=== PATIENT | female | born 1970 | race Caucasian/White ===

== ENCOUNTER 2016-05-02 12:36 | Emergency (ER) | payer MEDICARE, MEDICAID ==
[2016-05-02 13:12] VITALS: BP 83/58; TEMP 97.1; O2SAT 92
--- NOTE | 2016-05-02 13:12 | ED.PDOC ---
History of Present Illness - General Chief Complaint: Respiratory Problem Stated Complaint: wheezing Time Seen by Provider: 05/02/16 12:43 Source: patient, family Exam Limitations: physical impairment - History of Present Illness Initial Comments: Patient presents with wheezing for three days. She has had a URI. 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 She presents because her home health nurse measured a forehead temperature of 101. The patient also complains of a sore throat. No other complaints. No sick contacts. Timing/Duration: other - 3 days Improving Factors: nothing Worsening Factors: nothing Associated Symptoms: denies symptoms Allergies/Adverse Reactions: Allergies Aspirin Allergy (Verified 05/02/16 13:13) Azithromycin [From Zithromax] Allergy (Verified 05/02/16 14:16) Diazepam [From Valium] Allergy (Verified 05/02/16 13:13) Levofloxacin [From Levaquin] Allergy (Verified 05/02/16 14:16) Meperidine [From Demerol HCl] Allergy (Verified 05/02/16 13:13) Home Medications: Ambulatory Orders Acetaminophen [Tylenol] 1 - 2 mg PO Q6H PRN 05/02/16 Ascorbic Acid [Vitamin C] 1,000 mg PO DAILY 05/02/16 Baclofen 10 mg PO BEDTIME 05/02/16 Cranberry-Vitamin C-Probiotic [Azo Cranberry 250-30 mg] 1 tab PO PRN 05/02/16 Dexlansoprazole [Dexilant] 60 mg PO BEDTIME 05/02/16 Docusate Calcium 240 mg PO BEDTIME 05/02/16 Furosemide [Lasix] 40 mg PO DAILY 05/02/16 Gabapentin [Neurontin] 600 mg PO TID 05/02/16 Levocetirizine Dihydrochloride [Xyzal] 5 mg PO BEDTIME 05/02/16 Levothyroxine Sodium 150 mcg PO DAILY 05/02/16 Melatonin 10 mg PO BEDTIME 05/02/16 Metformin HCl 500 mg PO BID 05/02/16 Polyethylene Glycol 3350 [Miralax] 17 gm PO DAILY 05/02/16 Potassium Citrate (Alkalinizer [Potassium Citrate ER] 10 meq PO DAILY 05/02/16 Promethazine & Phenylephrine [Promethazine Vc] 1 - 2 tsp PO Q4H PRN 05/02/16 QUEtiapine FUMARATE [SEROquel] 100 mg PO BEDTIME 05/02/16 Risedronate Sodium [Atelvia] 35 mg PO WKLY 05/02/16 Simvastatin 40 mg PO BEDTIME 05/02/16 Temazepam [Restoril] 30 mg PO BEDTIME 05/02/16 Venlafaxine HCl [Effexor Xr] 75 mg PO DAILY 05/02/16 Venlafaxine Xr [Effexor XR] 150 mg PO BEDTIME 05/02/16 diphenhydrAMINE HCL [Benadryl] 50 mg PO BID 05/02/16 medroxyPROGESTERone ACET [Depo-Provera] 150 mg IM .[id number] 05/02/16 Review of Systems - Review of Systems Constitutional: States: see HPI EENTM: States: no symptoms reported Respiratory: States: see HPI Cardiology: States: no symptoms reported Gastrointestinal/Abdominal: States: no symptoms reported Genitourinary: States: no symptoms reported Musculoskeletal: States: see HPI Skin: States: no symptoms reported Neurological: States: no symptoms reported Endocrine: States: no symptoms reported Hematologic/Lymphatic: States: no symptoms reported Family Medical History - Family History Father Family History: Unknown Living Status: Still Living Physical Exam - Physical Exam General Appearance: Alert Ears, Nose, Throat: normal ENT inspection Neck: non-tender, full range of motion, supple Respiratory: other - Expiratory rales and wheezing in the Right middle lobe Cardiovascular/Chest: regular rate, rhythm Gastrointestinal/Abdominal: normal bowel sounds, non tender, soft Progress - Progress Progress: 05/02/16 15:31 CXR showed no infiltrate wbc wnl rapid strep positive patient given Bicillin LA 1.2 million units IM x one Departure - Departure Clinical Impression: Streptococcal pharyngitis Disposition: Discharge to Home or Self Care Condition: Good Departure Forms: ED Discharge - Pt. Copy, Patient Portal Self Enrollment Diet: resume usual diet Activity: increase activity as tolerated Home Medications: Ambulatory Orders Acetaminophen [Tylenol] 1 - 2 mg PO Q6H PRN 05/02/16 Ascorbic Acid [Vitamin C] 1,000 mg PO DAILY 05/02/16 Baclofen 10 mg PO BEDTIME 05/02/16 Cranberry-Vitamin C-Probiotic [Azo Cranberry 250-30 mg] 1 tab PO PRN 05/02/16 Dexlansoprazole [Dexilant] 60 mg PO BEDTIME 05/02/16 Docusate Calcium 240 mg PO BEDTIME 05/02/16 Furosemide [Lasix] 40 mg PO DAILY 05/02/16 Gabapentin [Neurontin] 600 mg PO TID 05/02/16 Levocetirizine Dihydrochloride [Xyzal] 5 mg PO BEDTIME 05/02/16 Levothyroxine Sodium 150 mcg PO DAILY 05/02/16 Melatonin 10 mg PO BEDTIME 05/02/16 Metformin HCl 500 mg PO BID 05/02/16 Polyethylene Glycol 3350 [Miralax] 17 gm PO DAILY 05/02/16 Potassium Citrate (Alkalinizer [Potassium Citrate ER] 10 meq PO DAILY 05/02/16 Promethazine & Phenylephrine [Promethazine Vc] 1 - 2 tsp PO Q4H PRN 05/02/16 QUEtiapine FUMARATE [SEROquel] 100 mg PO BEDTIME 05/02/16 Risedronate Sodium [Atelvia] 35 mg PO WKLY 05/02/16 Simvastatin 40 mg PO BEDTIME 05/02/16 Temazepam [Restoril] 30 mg PO BEDTIME 05/02/16 Venlafaxine HCl [Effexor Xr] 75 mg PO DAILY 05/02/16 Venlafaxine Xr [Effexor XR] 150 mg PO BEDTIME 05/02/16 diphenhydrAMINE HCL [Benadryl] 50 mg PO BID 05/02/16 medroxyPROGESTERone ACET [Depo-Provera] 150 mg IM .[id number] 05/02/16 Additional Instructions: Increase oral fluids. Tylenol for pain or fever control. See your primary care provider if symptoms persist more than 7 days or for worsening of symptoms.
--- NOTE | 2016-05-02 13:52 | RAD ---
EXAM DESCRIPTION: XR CHEST 1 VIEW CLINICAL HISTORY: 45 y/o ,F, wheezing, Right middle lobe COMPARISON: None. IMPRESSION: Minimal linear subsegmental atelectasis in both lung bases. Some of this may be scar as well. No lobar consolidation. Stentor right or on the right abdomen. No large pleural effusion or pneumothorax. Electronically signed by: Dandy Frazier MD 05/02/2016 13:50
[2016-05-02] MEDS ORDERED: POTASSIUM CHLORIDE 20 MEQ TAB PO ONE (13:59)
[2016-05-02] MEDS ORDERED: PENICILLIN BENZATHINE 1.2 MU 1.2 MU/2 ML SYG IM ONE (14:57)
== END 2016-05-02 15:39 | disposition home or self-care (01) ==
LOC: ER 12:36
DX: J02.0 Streptococcal pharyngitis (principal); Z88.6 Allergy status to analgesic agent; Z88.8 Allergy status to other drugs, medicaments and biological substances; Z88.3 Allergy status to other anti-infective agents; Z79.899 Other long term (current) drug therapy
CPT/HCPCS: 36415; 71010; 80053; 85025; 87804; 87880; J0561

== ENCOUNTER → 2016-06-04 | Outpatient (CLI) | payer MEDICARE, OTHER | END | disposition home or self-care (01) | LOC: BFHH 14:59 | PROVIDERS: ATTEND Family Medicine | DX: E11.9 Type 2 diabetes mellitus without complications (principal); G37.3 Acute transverse myelitis in demyelinating disease of central nervous system; E78.5 Hyperlipidemia, unspecified; N31.9 Neuromuscular dysfunction of bladder, unspecified ==

== ENCOUNTER 2016-08-06 17:11 | Emergency (ER) | payer MEDICARE, MEDICAID ==
--- NOTE | 2016-08-06 17:58 | RAD ---
EXAM DESCRIPTION: Chest,1 View CLINICAL HISTORY: chest congestion and cough COMPARISON: 02 May 2016 TECHNIQUE: AP portable chest FINDINGS: Scarring is observed in both lungs unchanged from the prior exam. Heart is within range of normal. IMPRESSION: Portable scarring is observed bilaterally. I see no acute cardiac pulmonary pathology. Electronically signed by: Juan Ayala MD 08/06/2016 5:56 PM CDT
--- NOTE | 2016-08-06 17:58 | ED.PDOC ---
History of Present Illness - General Chief Complaint: Respiratory Problem Stated Complaint: cough and chest congestion Time Seen by Provider: 08/06/16 17:51 Source: patient, RN notes reviewed, Vital Signs reviewed Exam Limitations: no limitations - History of Present Illness Initial Comments: Ms. Radha Norton 46 y/o female with history of transverse myelitis ,wheel chair bound stated that she had productive cough and nasal congestion for the last 2 weeks.Has nebulizer at home Timing/Duration: other - 14 days Severity: moderate Possible Cause: occasional episodes Improving Factors: nothing Worsening Factors: nothing Associated Symptoms: denies symptoms Respiratory Risk Factors: other - wheelchair bound Allergies/Adverse Reactions: Allergies Aspirin Allergy (Verified 08/06/16 17:32) Azithromycin [From Zithromax] Allergy (Verified 08/06/16 17:32) Diazepam [From Valium] Allergy (Verified 08/06/16 17:32) Levofloxacin [From Levaquin] Allergy (Verified 08/06/16 17:32) Meperidine [From Demerol HCl] Allergy (Verified 08/06/16 17:32) Home Medications: Ambulatory Orders Acetaminophen [Tylenol] 1 - 2 mg PO Q6H PRN 05/02/16 Ascorbic Acid [Vitamin C] 1,000 mg PO DAILY 05/02/16 Baclofen 10 mg PO BEDTIME 05/02/16 Cranberry-Vitamin C-Probiotic [Azo Cranberry 250-30 mg] 1 tab PO PRN 05/02/16 Dexlansoprazole [Dexilant] 60 mg PO BEDTIME 05/02/16 Docusate Calcium 240 mg PO BEDTIME 05/02/16 Furosemide [Lasix] 40 mg PO DAILY 05/02/16 Gabapentin [Neurontin] 600 mg PO TID 05/02/16 Levocetirizine Dihydrochloride [Xyzal] 5 mg PO BEDTIME 05/02/16 Levothyroxine Sodium 150 mcg PO DAILY 05/02/16 Melatonin 10 mg PO BEDTIME 05/02/16 Metformin HCl 500 mg PO BID 05/02/16 Polyethylene Glycol 3350 [Miralax] 17 gm PO DAILY 05/02/16 Potassium Citrate (Alkalinizer [Potassium Citrate ER] 10 meq PO DAILY 05/02/16 Promethazine & Phenylephrine [Promethazine Vc] 1 - 2 tsp PO Q4H PRN 05/02/16 QUEtiapine FUMARATE [SEROquel] 100 mg PO BEDTIME 05/02/16 Risedronate Sodium [Atelvia] 35 mg PO WKLY 05/02/16 Simvastatin 40 mg PO BEDTIME 05/02/16 Temazepam [Restoril] 30 mg PO BEDTIME 05/02/16 Venlafaxine HCl [Effexor Xr] 75 mg PO DAILY 05/02/16 Venlafaxine Xr [Effexor XR] 150 mg PO BEDTIME 05/02/16 diphenhydrAMINE HCL [Benadryl] 50 mg PO BID 05/02/16 medroxyPROGESTERone ACET [Depo-Provera] 150 mg IM .[id number] 05/02/16 Chlorpheniramine Maleate [Chlor-Trimeton Allergy] 12 mg PO BEDTIME #30 tab 08/06 Ipratropium Byfield (Nasal) [Ipratropium Byfield] 0.03 % NA TID PRN #1 spr 08/06 Review of Systems - Review of Systems Constitutional: States: no symptoms reported EENTM: States: see HPI, nose congestion Respiratory: States: see HPI, cough Cardiology: States: no symptoms reported Gastrointestinal/Abdominal: States: no symptoms reported, other - colostomy Genitourinary: States: other - chronic indwelling catheter Musculoskeletal: States: no symptoms reported Skin: States: no symptoms reported Neurological: States: pre-existing deficit - transverse myelitis,cva residual Past Medical History (General) - Patient Medical History Hx Stroke: Yes Hx Diabetes: Yes Hx Other PMH: Yes - Tranverse myelitis Hx Other - free text: ocular herpes zoster left Surgical History: appendectomy, other - hysterectomy ,colostomy Other Surgeries:: left eye enucleation - Vaccination History Hx Tetanus, Diphtheria Vaccination: Yes Hx Influenza Vaccination: Yes Hx Pneumococcal Vaccination: Yes Immunizations Up to Date: Yes - Social History Hx Tobacco Use: Yes Hx Alcohol Use: No Hx Substance Use: No Hx Depression: No - Activities of Daily Living Grooming Ability: Total Assistance Eating (Feeding) Ability: Total Assistance Toileting Ability: Total Assistance Family Medical History - Family History Father Family History: Unknown Living Status: Still Living Physical Exam - Physical Exam General Appearance: Alert, Comfortable, No apparent distress Eye Exam: left other - enucleation ENT Exam: normal ENT inspection, hearing grossly normal, TMs normal, pharynx normal, nasal congestion Neck: supple, normal inspection Respiratory: chest non-tender, no respiratory distress, other - coarse breath sounds Cardiovascular/Chest: normal peripheral pulses, regular rate, rhythm, no murmur Gastrointestinal/Abdominal: soft, other - colostomy patent Extremity: non-tender, no calf tenderness, pedal edema Neurologic: sensory deficit, other - residual motor deficit chronic Lymphatic: no adenopathy Progress - Results/Orders Results/Orders: Laboratory Results WBC 7.6 K/mm3 (4.8-10.8) 08/06/16 18:10 RBC 4.33 M/mm3 (4.20-5.40) 08/06/16 18:10 Hgb 12.1 gm/dL (12.0-16.0) 08/06/16 18:10 Hct 37.4 % (36.0-47.0) 08/06/16 18:10 MCV 86.4 fl (81.0-99.0) 08/06/16 18:10 MCH 27.9 pg (27.0-31.0) 08/06/16 18:10 MCHC 32.3 g/dL (33.0-37.0) L 08/06/16 18:10 RDW 15.7 % (11.5-14.5) H 08/06/16 18:10 Plt Count 240 K/mm3 (130-400) 08/06/16 18:10 MPV 9.2 fl (7.40-10.4) 08/06/16 18:10 Absolute Neuts (auto) 5.50 K/uL (1.8-6.8) 08/06/16 18:10 Absolute Lymphs (auto) 1.40 K/uL (1.0-3.4) 08/06/16 18:10 Absolute Monos (auto) 0.50 K/uL (0.2-0.8) 08/06/16 18:10 Absolute Eos (auto) 0.20 K/uL (0.0-0.4) 08/06/16 18:10 Absolute Basos (auto) 0.10 K/uL (0.0-0.1) 08/06/16 18:10 Neutrophils % 72.8 % (42.0-78.0) 08/06/16 18:10 Lymphocytes % 18.1 % (20.0-50.0) L 08/06/16 18:10 Monocytes % 6.0 % (2.0-9.0) 08/06/16 18:10 Eosinophils % 2.0 % (1.0-5.0) 08/06/16 18:10 Basophils % 1.1 % (0.0-2.0) 08/06/16 18:10 Sodium 140 mmol/L (135-145) 08/06/16 18:10 Potassium 2.9 mmol/L (3.6-5.0) L 08/06/16 18:10 Chloride 104 mmol/L (101-111) 08/06/16 18:10 Carbon Dioxide 27 mmol/L (21-31) 08/06/16 18:10 Anion Gap 11.9 (12-18) L 08/06/16 18:10 BUN 12 mg/dL (7-18) 08/06/16 18:10 Creatinine < 0.40 mg/dL (0.6-1.3) L 08/06/16 18:10 BUN/Creatinine Ratio 30.0 (10-20) H 08/06/16 18:10 Random Glucose 175 mg/dL (70-105) H 08/06/16 18:10 Serum Osmolality 283.4 mOsm/L (275-295) 08/06/16 18:10 Calcium 8.8 mg/dL (8.4-10.2) 08/06/16 18:10 Total Bilirubin 0.4 mg/dL (0.2-1.0) 08/06/16 18:10 AST 25 IU/L (10-42) 08/06/16 18:10 ALT 24 IU/L (10-60) 08/06/16 18:10 Alkaline Phosphatase 104 IU/L (42-121) 08/06/16 18:10 Serum Total Protein 7.3 gm/dL (6.4-8.2) 08/06/16 18:10 Albumin 4.0 g/dl (3.2-5.5) 08/06/16 18:10 Globulin 3.3 gm/dL (2.3-3.5) 08/06/16 18:10 Albumin/Globulin Ratio 1.2 (1.1-1.9) 08/06/16 18:10 - EKG/XRAY/CT XRAY: chest - no acute abnormality noted Departure - Departure Clinical Impression: Acute bronchospasm, Bronchitis with bronchospasm Time of Disposition: 19:00 Disposition: Discharge to Home or Self Care Condition: Fair Departure Forms: ED Discharge - Pt. Copy, Patient Portal Self Enrollment Instructions: Chronic Bronchitis Referrals: Shane Lopez MD [Primary Care Provider] - 1-2 Weeks Prescriptions: Chlorpheniramine Maleate [Chlor-Trimeton Allergy] 12 mg PO BEDTIME #30 tab Ipratropium [place]field (Nasal) [Ipratropium [place]] 0.03 % NA TID PRN #1 spr PRN Reason: Nasal Congestion Home Medications: Ambulatory Orders Acetaminophen [Tylenol] 1 - 2 mg PO Q6H PRN 05/02/16 Ascorbic Acid [Vitamin C] 1,000 mg PO DAILY 05/02/16 Baclofen 10 mg PO BEDTIME 05/02/16 Cranberry-Vitamin C-Probiotic [Azo Cranberry 250-30 mg] 1 tab PO PRN 05/02/16 Dexlansoprazole [Dexilant] 60 mg PO BEDTIME 05/02/16 Docusate Calcium 240 mg PO BEDTIME 05/02/16 Furosemide [Lasix] 40 mg PO DAILY 05/02/16 Gabapentin [Neurontin] 600 mg PO TID 05/02/16 Levocetirizine Dihydrochloride [Xyzal] 5 mg PO BEDTIME 05/02/16 Levothyroxine Sodium 150 mcg PO DAILY 05/02/16 Melatonin 10 mg PO BEDTIME 05/02/16 Metformin HCl 500 mg PO BID 05/02/16 Polyethylene Glycol 3350 [Miralax] 17 gm PO DAILY 05/02/16 Potassium Citrate (Alkalinizer [Potassium Citrate ER] 10 meq PO DAILY 05/02/16 Promethazine & Phenylephrine [Promethazine Vc] 1 - 2 tsp PO Q4H PRN 05/02/16 QUEtiapine FUMARATE [SEROquel] 100 mg PO BEDTIME 05/02/16 Risedronate Sodium [Atelvia] 35 mg PO WKLY 05/02/16 Simvastatin 40 mg PO BEDTIME 05/02/16 Temazepam [Restoril] 30 mg PO BEDTIME 05/02/16 Venlafaxine HCl [Effexor Xr] 75 mg PO DAILY 05/02/16 Venlafaxine Xr [Effexor XR] 150 mg PO BEDTIME 05/02/16 diphenhydrAMINE HCL [Benadryl] 50 mg PO BID 05/02/16 medroxyPROGESTERone ACET [Depo-Provera] 150 mg IM .[id number] 05/02/16 Chlorpheniramine Maleate [Chlor-Trimeton Allergy] 12 mg PO BEDTIME #30 tab 08/06 Ipratropium [place] (Nasal) [Ipratropium Byfield] 0.03 % NA TID PRN #1 spr 08/06 Additional Instructions: Continue with home hand held nebulizer and rest of home medications;Return to emergency room as needed
[2016-08-06] MEDS ORDERED: IPRATROPIUM/ALBUTEROL 3 ML VIAL NEB ONE (18:04)
[2016-08-06 19:20] VITALS: BP 96/65; TEMP 97.8
[2016-08-06 19:21] VITALS: O2SAT 94
== END 2016-08-06 19:21 | disposition home or self-care (01) ==
LOC: ER 17:11
DX: J20.9 Acute bronchitis, unspecified (principal); G37.3 Acute transverse myelitis in demyelinating disease of central nervous system; Z99.3 Dependence on wheelchair; E11.9 Type 2 diabetes mellitus without complications; Z87.891 Personal history of nicotine dependence; Z79.899 Other long term (current) drug therapy; I69.90 Unspecified sequelae of unspecified cerebrovascular disease; Z88.6 Allergy status to analgesic agent; Z88.3 Allergy status to other anti-infective agents; Z88.8 Allergy status to other drugs, medicaments and biological substances
CPT/HCPCS: 36415; 71010; 80053; 85025; 94640; J7620

== ENCOUNTER → 2016-09-10 | Outpatient (CLI) | payer MEDICARE, OTHER | END | disposition home or self-care (01) | LOC: BFHH 11:22 | PROVIDERS: ATTEND Family Medicine | DX: E87.6 Hypokalemia (principal) ==

== ENCOUNTER → 2016-10-15 | Outpatient (CLI) | payer MEDICARE, OTHER | END | disposition home or self-care (01) | LOC: BFHH 13:40 | PROVIDERS: ATTEND Family Medicine | DX: R60.0 Localized edema (principal); G37.3 Acute transverse myelitis in demyelinating disease of central nervous system; E11.9 Type 2 diabetes mellitus without complications ==

== ENCOUNTER → 2016-11-06 | Outpatient (CLI) | payer MEDICARE, OTHER | LOC: BFHH 13:07 | PROVIDERS: ATTEND Family Medicine | DX: N39.0 Urinary tract infection, site not specified (principal) ==

== ENCOUNTER 2016-11-09 14:31 | Emergency (ER) | payer MEDICARE, OTHER ==
--- NOTE | 2016-11-09 14:41 | ED.PDOC ---
History of Present Illness - General Chief Complaint: Neuro Symptoms/Deficits Stated Complaint: slurred speech/headache Time Seen by Provider: 11/09/16 14:33 Source: EMS notes reviewed, family - dad Exam Limitations: no limitations - History of Present Illness Initial Comments: Radha Norton 46 y/o female brought by ems with slowed and slurred speech starting last night;dad stated initially had headache was given Tramadol 100mg and 2 tylenol tabs then a few hours later speech got slurred and unable to swallow which according to dad still persist. Diagnosed with tranverse myelitis after she had spinal meningitis in 2001 in [place] and was transferred to [facility] in [place] where multiple neurologic work up and procedure done.Patient had been wheelchair bound needing total assistance due to quadriplegia.Had also cva after a procedure done in the past. Timing/Duration: other - 16 hours Improving Factors: nothing Worsening Factors: nothing Associated Symptoms: other - difficulty swallowing Allergies/Adverse Reactions: Allergies Aspirin Allergy (Verified 08/06/16 17:32) Azithromycin [From Zithromax] Allergy (Verified 08/06/16 17:32) Diazepam [From Valium] Allergy (Verified 08/06/16 17:32) Levofloxacin [From Levaquin] Allergy (Verified 08/06/16 17:32) Meperidine [From Demerol HCl] Allergy (Verified 08/06/16 17:32) Home Medications: Ambulatory Orders Acetaminophen [Tylenol] 1 - 2 mg PO Q6H PRN 05/02/16 Ascorbic Acid [Vitamin C] 1,000 mg PO DAILY 05/02/16 Baclofen 10 mg PO BEDTIME 05/02/16 Cranberry-Vitamin C-Probiotic [Azo Cranberry 250-30 mg] 1 tab PO PRN 05/02/16 Dexlansoprazole [Dexilant] 60 mg PO BEDTIME 05/02/16 Docusate Calcium 240 mg PO BEDTIME 05/02/16 Furosemide [Lasix] 40 mg PO DAILY 05/02/16 Gabapentin [Neurontin] 600 mg PO TID 05/02/16 Levocetirizine Dihydrochloride [Xyzal] 5 mg PO BEDTIME 05/02/16 Levothyroxine Sodium 150 mcg PO DAILY 05/02/16 Melatonin 10 mg PO BEDTIME 05/02/16 Metformin HCl 500 mg PO BID 05/02/16 Polyethylene Glycol 3350 [Miralax] 17 gm PO DAILY 05/02/16 Potassium Citrate (Alkalinizer [Potassium Citrate ER] 10 meq PO DAILY 05/02/16 Promethazine & Phenylephrine [Promethazine Vc] 1 - 2 tsp PO Q4H PRN 05/02/16 QUEtiapine FUMARATE [SEROquel] 100 mg PO BEDTIME 05/02/16 Risedronate Sodium [Atelvia] 35 mg PO WKLY 05/02/16 Simvastatin 40 mg PO BEDTIME 05/02/16 Temazepam [Restoril] 30 mg PO BEDTIME 05/02/16 Venlafaxine HCl [Effexor Xr] 75 mg PO DAILY 05/02/16 Venlafaxine Xr [Effexor XR] 150 mg PO BEDTIME 05/02/16 diphenhydrAMINE HCL [Benadryl] 50 mg PO BID 05/02/16 medroxyPROGESTERone INJ [Depo-Provera] 150 mg IM .[id number] 05/02/16 Chlorpheniramine Maleate [Chlor-Trimeton Allergy] 12 mg PO BEDTIME #30 tab 08/06 Ipratropium Dilworth (Nasal) [Ipratropium Dilworth] 0.03 % NA TID PRN #1 spr 08/06 Review of Systems - Review of Systems Constitutional: States: no symptoms reported EENTM: States: other - difficulty swallowing Respiratory: States: no symptoms reported Cardiology: States: no symptoms reported Gastrointestinal/Abdominal: States: no symptoms reported Genitourinary: States: no symptoms reported Musculoskeletal: States: no symptoms reported Skin: States: no symptoms reported Neurological: States: see HPI Endocrine: States: no symptoms reported Past Medical History (General) - Patient Medical History Hx Stroke: Yes Hx Diabetes: Yes Hx Other PMH: Yes - transverse myelitis ,spinal meningitis Surgical History: appendectomy - hysterectomy colostomy, other - left eye enucleation - Vaccination History Hx Tetanus, Diphtheria Vaccination: Yes Hx Influenza Vaccination: Yes Hx Pneumococcal Vaccination: Yes - Social History Hx Tobacco Use: Yes Hx Alcohol Use: No Hx Substance Use: No Hx Depression: No - Activities of Daily Living Patient Lives Alone: No - family Grooming Ability: Total Assistance Eating (Feeding) Ability: Total Assistance Toileting Ability: Total Assistance Family Medical History - Family History Father Family History: Unknown Living Status: Still Living Physical Exam - Physical Exam General Appearance: Other - somnolent Eye Exam: right normal, left other - eye enucleation ENT Exam: normal ENT inspection, hearing grossly normal, TMs normal, pharynx normal Neck: non-tender, supple, normal inspection Respiratory: chest non-tender, normal breath sounds, other - coarse breath sounds Cardiovascular/Chest: normal peripheral pulses, regular rate, rhythm, no JVD, no murmur, tachycardia Peripheral Pulses: radial,right: 1+, radial,left: 1+ Gastrointestinal/Abdominal: non tender, soft, no organomegaly Back Exam: normal inspection, no CVA tenderness Extremities Exam: non-tender, edema - +1 both legs Mental Status: other - somnolent manager transportation planning Exam: normal hearing, abnormal gag reflex Motor/Sensory: sensory deficit - residual Skin Exam: normal color, warm/dry, other - no pressure sore Progress - Progress Progress: 11/09/16 16:10 Vital Signs - 8 hr 11/09/16 11/09/16 11/09/16 14:31 14:45 15:02 Temperature 98.3 F 98.9 F 98.9 F Pulse Rate 104 H 100 H 100 H Pulse Rate [ 104 H 104 H 104 H Apical] Respiratory 16 16 Rate Blood Pressure 105/58 82/47 119/79 [Left Arm] O2 Sat by Pulse 94 L 96 Oximetry - Results/Orders Results/Orders: 11/09/16 14:37 IV Care:Saline Lock per Protoc QSHIFT URINE DRUG SCREEN, 7 ASSAY Stat URINALYSIS Stat 11/09/16 14:45 EKG STAT 11/09/16 15:31 Magnesium Sulfate Premix 2Gm 2 gm Premix Bag 1 bag IVPB ONCE 11/09/16 15:32 THYROID STIMULATING HORMONE Stat 11/09/16 15:47 PTH,INTACT W/O CALCIIUM Stat 11/09/16 16:08 Piperacillin/Tazobactam [Zosyn] 3.375 gm Sodium Chloride 0.9% 100Ml [NS (NACL 0.9%) 100ml] 100 ml IVPB ONCE Laboratory Results - last 24 hr 11/09/16 11/09/16 14:52 15:40 WBC 9.4 RBC 3.81 L Hgb 10.5 L Hct 32.1 L MCV 84.2 MCH 27.5 MCHC 32.7 L RDW 17.1 H Plt Count 85 L MPV 10.1 Absolute Neuts (auto) 8.60 H Absolute Lymphs (auto) 0.40 L Absolute Monos (auto) 0.40 Absolute Eos (auto) 0.00 Absolute Basos (auto) 0.00 Neutrophils % 91.1 H Lymphocytes % 4.0 L Monocytes % 4.1 Eosinophils % 0.5 L Basophils % 0.3 PT 14.8 H INR 1.310 PTT (SP) 33.7 Sodium 132 L Potassium 4.4 Chloride 93 L Carbon Dioxide 21 Anion Gap 22.4 H BUN 45 H Creatinine 1.92 H BUN/Creatinine Ratio 23.4 H Random Glucose 75 Serum Osmolality 274.8 L Lactic Acid 4.3 H* Calcium 8.0 L Magnesium 1.2 L Total Bilirubin 0.7 Direct Bilirubin 0.3 H Indirect Bilirubin 0.4 AST 52 H ALT 52 Alkaline Phosphatase 91 Creatine Kinase 306 H* CK-MB (CK-2) 16.3 H* CK-MB (CK-2) % 5.33 H Troponin I 0.18 H* Serum Total Protein 6.4 Albumin 3.2 - EKG/XRAY/CT EKG: Sinus, Tachy Comments: heart rate-102 IRBB XRAY: chest - scarring/atelectasis-radiologist CT Ordered: Yes - no infarct or hemorrhage Departure - Departure Clinical Impression: Altered awareness, transient, Sepsis due to Enterobacter species, Elevated troponin I level, Chronic indwelling Agustin catheter, Transverse myelitis, Quadriplegia, Elevated lactic acid level, Renal insufficiency Urinary tract infection Qualifiers: Urinary tract infection type: catheter-associated UTI Encounter type: initial encounter Qualified Code(s): T83.51XA - Infection and inflammatory reaction due to indwelling urinary catheter, initial encounter Time of Disposition: 18:35 Disposition: Transfer to Hospital Condition: Fair Departure Forms: Patient Portal Self Enrollment Referrals: Shane Lopez MD [Primary Care Provider] - 1-2 Weeks Home Medications: Ambulatory Orders Acetaminophen [Tylenol] 1 - 2 mg PO Q6H PRN 05/02/16 Ascorbic Acid [Vitamin C] 1,000 mg PO DAILY 05/02/16 Baclofen 10 mg PO BEDTIME 05/02/16 Cranberry-Vitamin C-Probiotic [Azo Cranberry 250-30 mg] 1 tab PO PRN 05/02/16 Dexlansoprazole [Dexilant] 60 mg PO BEDTIME 05/02/16 Docusate Calcium 240 mg PO BEDTIME 05/02/16 Furosemide [Lasix] 40 mg PO DAILY 05/02/16 Gabapentin [Neurontin] 600 mg PO TID 05/02/16 Levocetirizine Dihydrochloride [Xyzal] 5 mg PO BEDTIME 05/02/16 Levothyroxine Sodium 150 mcg PO DAILY 05/02/16 Melatonin 10 mg PO BEDTIME 05/02/16 Metformin HCl 500 mg PO BID 05/02/16 Polyethylene Glycol 3350 [Miralax] 17 gm PO DAILY 05/02/16 Potassium Citrate (Alkalinizer [Potassium Citrate ER] 10 meq PO DAILY 05/02/16 Promethazine & Phenylephrine [Promethazine Vc] 1 - 2 tsp PO Q4H PRN 05/02/16 QUEtiapine FUMARATE [SEROquel] 100 mg PO BEDTIME 05/02/16 Risedronate Sodium [Atelvia] 35 mg PO WKLY 05/02/16 Simvastatin 40 mg PO BEDTIME 05/02/16 Temazepam [Restoril] 30 mg PO BEDTIME 05/02/16 Venlafaxine HCl [Effexor Xr] 75 mg PO DAILY 05/02/16 Venlafaxine Xr [Effexor XR] 150 mg PO BEDTIME 05/02/16 diphenhydrAMINE HCL [Benadryl] 50 mg PO BID 05/02/16 medroxyPROGESTERone INJ [Depo-Provera] 150 mg IM .[id number] 05/02/16 Chlorpheniramine Maleate [Chlor-Trimeton Allergy] 12 mg PO BEDTIME #30 tab 08/06 Ipratropium Dilworth (Nasal) [Ipratropium Dilworth] 0.03 % NA TID PRN #1 spr 08/06 Transfer to Outside Facility - Transfer Information Accepting Facility: [facility] Reason for Transfer: specialized care not available
[2016-11-09] MEDS ORDERED: SODIUM CHLORIDE 0.9% 1000ML 1,000 ML IVS ONE ×2 (14:52→17:19)
--- NOTE | 2016-11-09 14:59 | CT ---
EXAM DESCRIPTION: Head CLINICAL HISTORY: 46 years, Female, slurred speech TECHNIQUE: 5mm slice thickness axial images through the brain were performed in bone and soft tissue windows in the absence of intravenous contrast. This exam was performed according to our departmental dose-optimization program which includes use of Automated Exposure Control, adjustment of the mA and/or kV according to patient size and/or use of iterative reconstruction technique. COMPARISON: CT scan of the neck dated 03/11/2016. FINDINGS: No involutional changes are present. There is a paucity of visible CSF. The lateral ventricles are small although the temporal horn of the LEFT lateral ventricle is mildly dilated. The basal cisterns are patent and dempsey-white differentiation is maintained. No intracranial hemorrhage is detected. Findings are similar to the prior study dated 03/11/2016 on the this exam only includes the mid to caudal portion of the brain. No dense MCA sign. Intact insular cortex. There has been a previous RIGHT frontal and temporal craniotomy. Additional RIGHT temporal surgery at the external auditory canal extending to the middle ear is noted. The visualized paranasal sinuses and mastoid air cells are patent. No fracture is present. Stable appearance of the LEFT globe. IMPRESSION: No acute cortical infarct is detected by noncontrast CT at this time. No intracranial hemorrhage. Consider MR imaging to evaluate for early changes brain ischemia/infarct. Limited CSF is seen within the supratentorial region but this is likely a chronic finding as dempsey-white differentiation is maintained in the caudal portion of the brain has a similar appearance to the prior study. Postoperative changes. Electronically signed by: Parisa Elaine MD 11/09/2016 2:58 PM CDT Workstation: [id number]
[2016-11-09] MEDS ORDERED: MAGNESIUM SULFATE PREMIX 2GM 2 GM in PREMIX BAG 1 BAG IVPB ONE (15:31)
--- NOTE | 2016-11-09 15:32 | RAD ---
EXAM DESCRIPTION: Chest,1 View CLINICAL HISTORY: 46 years, Female, weak COMPARISON: Chest x-ray dated 08/06/2016. FINDINGS: An upright portable frontal chest radiograph was performed. Lung volumes are low and there is some retrocardiac linear airspace opacity and scarring of the RIGHT lung base. The costophrenic sulci are sharp. The cardiac silhouette, hilar regions, trachea, soft tissues and bony structures are unremarkable. Lung volumes have decreased since the prior study and linear retrocardiac airspace opacity has increased. IMPRESSION: Low lung volumes with suspected atelectasis and scarring. Electronically signed by: Parisa Elaine MD 11/09/2016 3:31 PM CDT
[2016-11-09] MEDS ORDERED: MAGNESIUM SULFATE PREMIX 2GM 50 ML IVPB ONE (15:42)
[2016-11-09] MEDS ORDERED: PIPERACILLIN/TAZOBACTAM 3.375 GM in SODIUM CHLORIDE 0.9% 100ML 100 ML IVPB ONE (16:08)
[2016-11-09] MEDS ORDERED: SODIUM CHLORIDE 0.9% 100ML 100 ML IVPB ONE (16:15)
[2016-11-09] MEDS ORDERED: PIPERACILLIN/TAZOBACTAM 3.375 GM VIAL IVPB ONE (16:15)
[2016-11-09] MEDS ORDERED: MEROPENEM 1 GM in SODIUM CHL 0.9% 50ML MIN-BAG+ 50 ML IVPB ONE (16:46)
[2016-11-09] MEDS ORDERED: SODIUM CHL 0.9% 50ML MIN-BAG+ 50 ML IVPB ONE (16:49)
[2016-11-09] MEDS ORDERED: MEROPENEM 1 GM VIAL IVPB ONE (16:49)
[2016-11-09] MEDS ORDERED: NOREPINEPHRINE BITARTRATE 4 MG in DEXTROSE 5% 250ML 250 ML IVPB SCH (17:30)
[2016-11-09] MEDS ORDERED: NOREPINEPHRINE BITARTRATE 4 MG/4 ML VIAL IVPB ONE (17:42)
[2016-11-09] MEDS ORDERED: DEXTROSE 5% 250ML 250 ML ONE (17:48)
[2016-11-09 19:21] VITALS: O2SAT 92
[2016-11-09 19:25] VITALS: TEMP 99.5
[2016-11-09 19:47] VITALS: BP 122/57
== END 2016-11-09 20:03 | disposition short-term general hospital (02) ==
LOC: ER 14:31
DX: R47.81 Slurred speech (principal); T83.511A Infection and inflammatory reaction due to indwelling urethral catheter, initial encounter; N39.0 Urinary tract infection, site not specified; A41.89 Other specified sepsis; R40.4 Transient alteration of awareness; G82.50 Quadriplegia, unspecified; G37.3 Acute transverse myelitis in demyelinating disease of central nervous system; E11.9 Type 2 diabetes mellitus without complications; N28.9 Disorder of kidney and ureter, unspecified; Z88.6 Allergy status to analgesic agent; Z88.8 Allergy status to other drugs, medicaments and biological substances; Z93.3 Colostomy status; Z79.899 Other long term (current) drug therapy; Z87.891 Personal history of nicotine dependence; Z86.61 Personal history of infections of the central nervous system; Z86.73 Personal history of transient ischemic attack (TIA), and cerebral infarction without residual deficits
CPT/HCPCS: 36415; 70450; 71010; 80048; 80076; 80307; 81001; 82550; 82553; 83605; 84443; 84484; 85025; 85610; 85730; 87040; 87086; 87088; 87186; 93005; J2185; J3475; J7030; J7050; J7060

== ENCOUNTER → 2016-11-24 | Outpatient (CLI) | payer MEDICARE, OTHER | END | disposition home or self-care (01) | LOC: BFHH 15:44 | PROVIDERS: ATTEND Family Medicine | DX: R65.21 Severe sepsis with septic shock (principal); N39.0 Urinary tract infection, site not specified ==

== ENCOUNTER → 2016-11-27 | Outpatient (CLI) | payer MEDICARE, MEDICAID | END | disposition home or self-care (01) | LOC: BFHH 14:10 | PROVIDERS: ATTEND Internal Medicine Infectious Disease | DX: R65.21 Severe sepsis with septic shock (principal); N39.0 Urinary tract infection, site not specified; A41.51 Sepsis due to Escherichia coli [E. coli] ==

== ENCOUNTER → 2016-12-01 | Outpatient (CLI) | payer MEDICARE, OTHER | LOC: BFHH 16:52 | PROVIDERS: ATTEND Family Medicine | DX: R65.21 Severe sepsis with septic shock (principal); N39.0 Urinary tract infection, site not specified ==

== ENCOUNTER → 2016-12-09 | Outpatient (CLI) | payer MEDICARE, MEDICAID | END | disposition home or self-care (01) | LOC: TXRM 10:25 | PROVIDERS: ATTEND Family Medicine | DX: R65.21 Severe sepsis with septic shock (principal); N39.0 Urinary tract infection, site not specified ==

== ENCOUNTER → 2016-12-31 | Outpatient (CLI) | payer MEDICARE, MEDICAID | END | disposition home or self-care (01) | LOC: BFHH 15:34 | PROVIDERS: ATTEND Family Medicine | DX: N39.0 Urinary tract infection, site not specified (principal) ==

== ENCOUNTER 2017-01-01 17:58 | Inpatient (IN) | payer MEDICARE, OTHER ==
[2017-01-01] MEDS ORDERED: SODIUM CHLORIDE 0.9% 1000ML 1,000 ML IVS ONE ×2 (18:15→20:19)
--- NOTE | 2017-01-01 18:15 | ED.PDOC ---
History of Present Illness - General Chief Complaint: General Stated Complaint: not feeling well Time Seen by Provider: 01/01/17 18:13 Source: patient, EMS notes reviewed - History of Present Illness Initial Comments: Radha Norton 46 y/o female quadriplegic/bedbound due to spinal meningitis in 2001 complicated later by transverse myelitis and cva stated that she had been having neck pains radiating to the back of her head with dizziness on moving head and no appetite.She was hospitalized for one week at [facility] due to sepsis from UTI.She is also on chronic indwelling catheter and s/p colostomy . Timing/Duration: other - 2 days ago Severity: moderate Improving Factors: nothing Worsening Factors: nothing Associated Symptoms: loss of appetite Allergies/Adverse Reactions: Allergies Aspirin Allergy (Verified 08/06/16 17:32) Azithromycin [From Zithromax] Allergy (Verified 08/06/16 17:32) Diazepam [From Valium] Allergy (Verified 08/06/16 17:32) Levofloxacin [From Levaquin] Allergy (Verified 08/06/16 17:32) Meperidine [From Demerol HCl] Allergy (Verified 08/06/16 17:32) Home Medications: Ambulatory Orders Dexlansoprazole [Dexilant] 60 mg PO BEDTIME 05/02/16 Docusate Calcium 240 mg PO BEDTIME 05/02/16 Furosemide [Lasix] 40 mg PO BID 05/02/16 Gabapentin [Neurontin] 600 mg PO TID 05/02/16 Levothyroxine Sodium 150 mcg PO DAILY 05/02/16 Metformin HCl 500 mg PO BID 05/02/16 Potassium Citrate (Alkalinizer [Potassium Citrate ER] 10 meq PO DAILY 05/02/16 QUEtiapine FUMARATE [SEROquel] 100 mg PO BEDTIME 05/02/16 Risedronate Sodium [Atelvia] 35 mg PO WKLY 05/02/16 Simvastatin 40 mg PO BEDTIME 05/02/16 Venlafaxine HCl [Effexor Xr] 75 mg PO DAILY 05/02/16 Venlafaxine Xr [Effexor XR] 150 mg PO BEDTIME 05/02/16 Chlorpheniramine Maleate [Chlor-Trimeton Allergy] 12 mg PO BEDTIME #30 tab 08/06 Levothyroxine Sodium [Synthroid] 150 mcg PO DAILY 01/01/17 Trazodone HCl 100 mg PO BEDTIME 01/01/17 Review of Systems - Review of Systems Constitutional: States: no symptoms reported EENTM: States: no symptoms reported Respiratory: States: no symptoms reported Gastrointestinal/Abdominal: States: see HPI Genitourinary: States: see HPI Musculoskeletal: States: see HPI Skin: States: no symptoms reported Neurological: States: pre-existing deficit Endocrine: States: no symptoms reported Hematologic/Lymphatic: States: no symptoms reported Past Medical History (General) - Patient Medical History Hx Stroke: Yes Hx Cardiac Disorders: No Hx Congestive Heart Failure: No Hx Diabetes: Yes Hx Other PMH: Yes - tranverse myelitis,sepsis, Surgical History: appendectomy, other - colostomy,eye enucleation left, hysterectomy - Vaccination History Hx Tetanus, Diphtheria Vaccination: Yes Hx Influenza Vaccination: Yes Hx Pneumococcal Vaccination: Yes - Social History Hx Tobacco Use: Yes Hx Alcohol Use: No Hx Substance Use: No Hx Depression: No Family Medical History - Family History Father Family History: Unknown Living Status: Still Living Physical Exam - Physical Exam General Appearance: Alert, No apparent distress Eye Exam: right normal, left other - enucleation Ears, Nose, Throat: hearing grossly normal, normal ENT inspection Neck: non-tender, supple Respiratory: lungs clear, normal breath sounds Cardiovascular/Chest: normal peripheral pulses, regular rate, rhythm, no murmur Peripheral Pulses: radial,right: 1+, radial,left: 1+ Gastrointestinal/Abdominal: non tender, soft, distended, other - colostomy patent Back Exam: no CVA tenderness, no vertebral tenderness Extremity: pedal edema - both feet, other - contracture deformities Neurologic: alert, oriented x 3, sensory deficit - able to feel pressure only from clavicle to both feet Skin Exam: normal color, warm/dry Lymphatic: no adenopathy Progress - Progress Progress: 01/01/17 19:54 Vital Signs 01/01/17 01/01/17 18:07 19:06 Temperature 100.9 F H Pulse Rate [ 101 H 95 H pulse ox] Respiratory 20 18 Rate Blood Pressure 88/53 98/47 [left brachial] O2 Sat by Pulse 93 L 97 Oximetry - Results/Orders Results/Orders: Laboratory Tests 01/01/17 01/01/17 01/01/17 18:36 18:36 18:36 WBC 14.2 H RBC 3.94 L Hgb 11.0 L Hct 33.2 L MCV 84.2 MCH 27.9 MCHC 33.0 RDW 17.1 H Plt Count 163 MPV 9.6 Absolute Neuts (auto) 12.40 H Absolute Lymphs (auto) 0.60 L Absolute Monos (auto) 1.20 H Absolute Eos (auto) 0.00 Absolute Basos (auto) 0.00 Neutrophils % 87.1 H Lymphocytes % 4.0 L Monocytes % 8.6 Eosinophils % 0.1 L Basophils % 0.2 Sodium 132 L Potassium 3.0 L Chloride 95 L Carbon Dioxide 25 Anion Gap 15.0 BUN 13 Creatinine < 0.40 L BUN/Creatinine Ratio 32.0 H Random Glucose 139 H Serum Osmolality 266.9 L Lactic Acid 2.7 H* Calcium 8.3 L Total Bilirubin 0.6 AST 27 ALT 23 Alkaline Phosphatase 86 Serum Total Protein 7.3 Albumin 3.5 Globulin 3.8 H Albumin/Globulin Ratio 0.9 L Urine Color Urine Appearance Urine pH Ur Specific [place] Urine Protein Urine Glucose (UA) Urine Ketones Urine Blood Urine Nitrite Urine Bilirubin Urine Urobilinogen Ur Leukocyte Esterase Urine RBC Urine WBC Ur Epithelial Cells Urine Bacteria 01/01/17 21:00 WBC RBC Hgb Hct MCV MCH MCHC RDW Plt Count MPV Absolute Neuts (auto) Absolute Lymphs (auto) Absolute Monos (auto) Absolute Eos (auto) Absolute Basos (auto) Neutrophils % Lymphocytes % Monocytes % Eosinophils % Basophils % Sodium Potassium Chloride Carbon Dioxide Anion Gap BUN Creatinine BUN/Creatinine Ratio Random Glucose Serum Osmolality Lactic Acid Calcium Total Bilirubin AST ALT Alkaline Phosphatase Serum Total Protein Albumin Globulin Albumin/Globulin Ratio Urine Color Yellow Urine Appearance Cloudy Urine pH 6.0 Ur Specific [place] 1.015 Urine Protein 30 Urine Glucose (UA) Negative Urine Ketones Negative Urine Blood Small H Urine Nitrite Positive H Urine Bilirubin Negative Urine Urobilinogen 0.2 Ur Leukocyte Esterase Large H Urine RBC 1-3 Urine WBC 30-40 H Ur Epithelial Cells 0-1 Urine Bacteria 4+ H - EKG/XRAY/CT XRAY: chest - no acute abnormalities CT: [id number] stenosis c3-c4;c4-c5 CT Ordered: Yes - abd/p-no acute changes Departure - Departure Clinical Impression: Other quadriplegia and quadriparesis, Chronic indwelling Agustin catheter, Transverse myelopathy syndrome, Spinal stenosis in cervical region Urinary tract infection Qualifiers: Urinary tract infection type: catheter-associated UTI Indwelling urinary catheter type: indwelling urethral catheter Encounter type: initial encounter Qualified Code(s): T83.511A - Infection and inflammatory reaction due to indwelling urethral catheter, initial encounter Time of Disposition: 23:39 Disposition: Admit Patient Home Medications: Ambulatory Orders Dexlansoprazole [Dexilant] 60 mg PO BEDTIME 05/02/16 Docusate Calcium 240 mg PO BEDTIME 05/02/16 Furosemide [Lasix] 40 mg PO BID 05/02/16 Gabapentin [Neurontin] 600 mg PO TID 05/02/16 Levothyroxine Sodium 150 mcg PO DAILY 05/02/16 Metformin HCl 500 mg PO BID 05/02/16 Potassium Citrate (Alkalinizer [Potassium Citrate ER] 10 meq PO DAILY 05/02/16 QUEtiapine FUMARATE [SEROquel] 100 mg PO BEDTIME 05/02/16 Risedronate Sodium [Atelvia] 35 mg PO WKLY 05/02/16 Simvastatin 40 mg PO BEDTIME 05/02/16 Venlafaxine HCl [Effexor Xr] 75 mg PO DAILY 05/02/16 Venlafaxine Xr [Effexor XR] 150 mg PO BEDTIME 05/02/16 Chlorpheniramine Maleate [Chlor-Trimeton Allergy] 12 mg PO BEDTIME #30 tab 08/06 Levothyroxine Sodium [Synthroid] 150 mcg PO DAILY 01/01/17 Trazodone HCl 100 mg PO BEDTIME 01/01/17 Decision To Admit - Decistion To Admit Decision to Admit Reason: Admit from ER Decision to Admit Date: 01/01/17 - D/W Dulce Dahl-LOGAN/Hospitalist Decision to Admit Time: 23:39
--- NOTE | 2017-01-01 18:37 | RAD ---
PROCEDURE: XR CHEST 1 VIEW HISTORY: fever COMPARISON: 11/09/2016 TECHNIQUE: Single projection of the chest was done. FINDINGS: Note is again made of a 7.4 cm tubular density projected over the thoracic tracheal shadow of uncertain origin and etiology. There is also presence of a wire projected over the mid to lower thoracic spine and may represent an epididymal pacemaker There are no discrete airspace infiltrates, pneumothoraces or pleural effusions. The pulmonary vascularity is normal. The cardiomediastinal silhouette is stable. IMPRESSION: There is no acute pleural-parenchymal process seen in the imaged lung otoole. Note is again made of a 7.4 cm tubular density projected over the thoracic tracheal shadow of uncertain origin and etiology. Electronically signed by: Ezio Mclean MD 01/01/2017 6:36 PM CDT Workstation: [id number]
--- NOTE | 2017-01-01 20:24 | CT ---
EXAM DATE: 01/01/2017 7:28 PM CDT. PROCEDURE: CT CERVICAL SPINE WITHOUT IV CONTRAST. INDICATION: pain. COMPARISON: CT neck 03/11/2016. TECHNIQUE: Axial CT images of the cervical spine were obtained without administration of intravenous contrast. This exam was performed according to our departmental dose-optimization program which includes use of Automated Exposure Control, adjustment of the mA and/or kV according to patient size and/or use of iterative reconstruction technique. FINDINGS: The cervical vertebral bodies demonstrate normal height and alignment. There is mild intervertebral disc space height loss throughout the cervical spine. No acute fracture. Normal alignment of the cervical cranial junction and facet joints. C2-C3: Uncovertebral spurring facet arthropathy contributes to mild left foraminal narrowing. No right foraminal stenosis or spinal canal stenosis. C3-C4: Left subarticular disc osteophyte complex results in severe left foraminal stenosis. No significant right foraminal stenosis. Mild spinal canal narrowing. C4-C5: Uncovertebral spurring facet arthropathy contributes to severe right and moderate left foraminal stenoses. No spinal canal stenosis. C5-C6: Uncovertebral spurring and facet arthropathy contributes to mild bilateral foraminal narrowing. No significant spinal canal stenosis. C6-C7: No significant spinal canal or neural foraminal stenosis. C7-T1: No significant disc bulge. No spinal canal or neural foraminal narrowing. An epidural spinal stimulator lead is present. Left phthisis bulbi. Lung bases are clear. Soft tissues of the neck are unremarkable. IMPRESSION: No acute fracture or traumatic subluxation. Moderate multilevel degenerative changes of the cervical spine. Electronically signed by: Sonu Salgado MD 01/01/2017 8:23 PM CDT
[2017-01-01] MEDS ORDERED: MEROPENEM 1 GM in SODIUM CHL 0.9% 50ML MIN-BAG+ 50 ML IVPB ONE (20:27)
--- NOTE | 2017-01-01 20:34 | CT ---
PROCEDURE: Abdoment/Pelvis w/o Contrast HISTORY: Abdominal distention Indication: Same as above Comparison: None Technique: CT of the abdomen and pelvis was done without intravenous contrast. Images were obtained from the lung base to the level of the pubic symphysis in axial plane, followed by orthogonal sagittal and coronal reconstruction. Oral contrast was not given for the study. This exam was performed according to our departmental dose-optimization program, which includes automated exposure control, adjustment of the mA and/or KV according to the patient's size and/or use of iterative reconstruction technique. FINDINGS: Images through the lung bases show small left side pleural effusion and left lower lobe passive atelectasis/infiltrate. There is also minimal right-sided pleural effusion and minimal discoid atelectasis/infiltrate in the right lower lobe of the lung. Benign elevation of the left hemidiaphragm is noted. The liver, gallbladder, pancreas, spleen and the bilateral adrenal glands appear unremarkable, given the limitation of lack of intravenous contrast. The bilateral kidneys do not show any evidence of hydronephrosis or nephrolithiasis. The bilateral ureters and the bilateral periureteral soft tissues and fat planes are unremarkable. The urinary bladder is decompressed by presence of a Agustin catheter The small bowel appears unremarkable, without any evidence of small bowel obstruction or bowel wall thickening. There is no CT evidence of pericecal inflammatory change or ileocecal mesenteric adenitis. The ileocecal junction appears unremarkable. There is no CT evidence of acute colonic diverticulitis or colitis or large bowel obstruction. There is left anterior abdominal wall colostomy. There is no pathological lymphadenopathy in the retroperitoneum or in the pelvic region. There is no evidence of free fluid or free air in the abdomen or the pelvic region. There is no clinically significant abdominal aortic aneurysm. There is no clinically significant inguinal or ventral hernia. The visualized lumbar spine is unremarkable. Note is made of a epidural pacemaker wire in the lower thoracic spinal canal An anteverted uterus is seen The paravertebral soft tissues are unremarkable. The remainder of the pelvic structures are unremarkable. IMPRESSION: Images through the lung bases show small left side pleural effusion and left lower lobe passive atelectasis/infiltrate. There is also minimal right-sided pleural effusion and minimal discoid atelectasis/infiltrate in the right lower lobe of the lung. There is no small or large bowel obstruction. There is left anterior pelvic wall colostomy Electronically signed by: Ezio Mclean MD 01/01/2017 8:32 PM CDT Workstation: [id number]
[2017-01-01] MEDS ORDERED: SODIUM CHL 0.9% 50ML MIN-BAG+ 50 ML IVPB ONE (20:56)
[2017-01-01] MEDS ORDERED: MEROPENEM 1 GM VIAL IVPB ONE (20:56)
--- NOTE | 2017-01-01 23:31 | HP ---
SUPERVISING PHYSICIAN: Praful Balderrama MD CHIEF COMPLAINT: Abdominal pain and decreased urine output. HISTORY OF PRESENT ILLNESS: This is a 46-year-old female who is quadriplegic and bedbound due to spinal meningitis in 2001. It was later complicated by transverse myelitis and a cerebrovascular accident. She had an elevated temperature. It should be noted that about 1-1/2 months ago, she was in [facility] in [place] for E. coli urosepsis and actually had a PICC line that was removed several weeks ago. She states her caregiver noticed that her chronic indwelling catheter was not draining properly and had minimal urine output. She called [facility] and they came out and changed the catheter and did a UA. In the Emergency Room, she was found to have significant urinary tract infection. Upon reviewing the culture from the previous day, it shows Klebsiella pneumoniae and is sensitive to Merrem. She was given some fluids in the Emergency Room as well as given Merrem. Her vital signs initially in the Emergency Room had respiratory rate of 14, her systolic blood pressure was 79. Additional lab studies were done and she had a white blood cell count of 14,200 with hemoglobin 11, hematocrit 33.2. She had a left shift with neutrophils at 87.1. Sodium 132, potassium 3, glucose 139, BUN was 13, creatinine less than 0.4. Calcium 8.3. Initial lactic acid was 2.7. An abdominal pelvic CT was obtained and per radiologic interpretation there is minimal right-sided pleural effusion and minimal discoid atelectasis/infiltrate in the right lower lobe of the lung. There is no small or large bowel obstruction. There is left anterior pelvic wall colostomy. Her cervical spine CT per radiologic interpretation shows no acute fracture or traumatic subluxation. Her chest x- ray per radiologic interpretation shows no acute parenchymal processes seen. She was given fluids and antibiotics. I was called for hospital admission. PAST MEDICAL HISTORY: 1. Diabetes mellitus, type 2. 2. Transverse myelitis. 3. Hypothyroidism. 4. Cerebrovascular accident. 5. Basilar meningitis. 6. Chronic spasticity quadriparesis. 7. 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 She has a prosthesis. PAST SURGICAL HISTORY: 1. Brain biopsy. 2. Facial nerve decompression. 3. Left eye prosthesis. 4. Placement of intrathecal baclofen pump. 5. Colostomy. CURRENT MEDICATIONS: Per the EMR and awaiting verification. ALLERGIES: ASPIRIN, AZITHROMYCIN, DIAZEPAM,LEVOFLOXACIN, MEPERIDINE AND TAPE ADHESIVE. SOCIAL HISTORY: She is single and disabled. She denies any tobacco, alcohol or illicit drug use. REVIEW OF SYSTEMS: GENERAL: Positive for fever and weakness. Denies weight changes. HEENT: Positive for some sinus symptoms. Negative for ear pain, vision changes or sore throat. RESPIRATORY: Negative for coughing, wheezing, or shortness of breath. CARDIAC: Denies chest pain, palpitations or tachycardia. GASTROINTESTINAL: Positive for nausea and suprapubic abdominal pain. Negative for constipation or vomiting. She did have one bout of diarrhea yesterday. NEUROLOGIC: Positive for headache. Negative for seizures or dizziness. PHYSICAL EXAMINATION: VITAL SIGNS: Now, temperature 98.2. Temperature on admission was 100.9. Pulse rate is 89. It was as high as 101. Blood pressure 95/55. It did get as low as 79/37. Respiratory rate 20. O2 saturation 95% on 2 liters nasal canula. GENERAL: This is a 46 year old female, lying in her hospital bed. She is in no acute distress. HEENT: Normocephalic, atraumatic. Oropharynx is clear. She does have an enucleated left eye. Right eye is normal. NECK: Supple without mass. RESPIRATORY: Clear to auscultation bilaterally. CHEST: There is equal rise and fall of the chest with inspiration and expiration. CARDIOVASCULAR: Regular rate and rhythm. ABDOMEN: Obese, rounded. Bowel sounds are positive. She does have a colostomy that is patent. There is no CVA tenderness. EXTREMITIES: Generalized pedal edema to both feet with contracture deformity. NEUROLOGIC: Awake, alert and oriented times three. Answers questions appropriately LABORATORY: Subsequent lactic was 1.2. UA was positive for nitrites. Urine culture from yesterday is positive for Klebsiella pneumonia. ASSESSMENT: 1. Urosepsis. Her culture is positive for Klebsiella pneumoniae and is sensitive to Merrem. 2. Leukocytosis. 3. Hypotension, somewhat corrected with fluids. 4. Febrile illness, most likely secondary to #1. 5. History of transverse myelitis. 6. Hypothyroidism. 7. History of cerebrovascular accident. 8. History of basilar meningitis. 9. 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 PLAN: Patient will be admitted to Medical/Surgical Floor for additional fluids. She will probably need about 4 to 5 liters total. We will monitor her blood pressure closely, especially just after admission. I will do it every hour for 4 hours. I have continued the Merrem and started Accuchecks with sliding scale insulin. I have ordered some potassium replacement, repeat the labs for in the morning. The patient's caregiver is very concerned that she is scheduled for her pain pump to be filled on Thursday with Dr. Mcnulty in [place]. He is her pain management doctor. His telephone number is [phone]. We will need to touch base with him and on Thursday if she is not discharged. I have encouraged the patient good pulmonary hygiene to prevent further complications. I have added Protonix for ulcer prophylaxis as well as Lovenox for DVT prophylaxis. Dr. Balderrama is the collaborating physician and available for consultation. #[id number] [facility]
[2017-01-01] MEDS ORDERED: ONDANSETRON INJ 4 MG/2 ML VIAL IV PRN (23:43)
[2017-01-01] MEDS ORDERED: SODIUM CHLORIDE 0.9% (FLUSH) 10 ML SYG IV PRN (23:43)
[2017-01-01] MEDS ORDERED: PANTOPRAZOLE SODIUM IV 40 MG VIAL IV SCH (23:45)
[2017-01-01] MEDS ORDERED: ENOXAPARIN SODIUM 40 MG/0.4 ML SYG SUBCU SCH (23:45)
[2017-01-01] MEDS ORDERED: KCL 40 MEQ/WATER FOR INJECTION 40 MEQ in PREMIX BAG 1 BAG IVPB ONE (23:55)
[2017-01-01] MEDS ORDERED: GLUCAGON INJ 1 MG VIAL SUBCU PRN (23:55)
[2017-01-01] MEDS ORDERED: DEXTROSE 50% 25 GM/50 ML SYG IV PRN (23:55)
[2017-01-02] MEDS ORDERED: KCL 20MEQ/WATER FOR INJ 100ML 0 ML IVPB ONE (00:36)
[2017-01-02] MEDS ORDERED: KCL 40 MEQ/WATER FOR INJECTION 100 ML IVPB ONE (00:37)
[2017-01-02] MEDS: IV SET AND CAP CHANGE INJ INJ SCH (00:55)
[2017-01-02] MEDS: GABAPENTIN 300 MG CAP PO SCH ×4 (00:55→21:30)
[2017-01-02] MEDS: BACLOFEN 10 MG TAB PO PRN ×2 (01:17→21:30)
[2017-01-02] MEDS: SODIUM CHLORIDE 0.9% 1000ML 1,000 ML IVS PRN ×2 (02:12→09:28)
[2017-01-02] MEDS: ACETAMINOPHEN 325 MG TAB PO PRN ×3 (02:13→18:05)
[2017-01-02] MEDS ORDERED: traZODone HCL 50 MG TAB ONE (02:16)
[2017-01-02] MEDS: traZODone HCL 50 MG TAB PO SCH ×2 (02:17→21:30)
[2017-01-02] MEDS ORDERED: MEROPENEM 1 GM VIAL IVPB ONE ×3 (04:34→21:12)
[2017-01-02] MEDS ORDERED: SODIUM CHL 0.9% 50ML MIN-BAG+ 50 ML IVPB ONE ×3 (04:34→21:12)
[2017-01-02] MEDS: MEROPENEM 1 GM in SODIUM CHL 0.9% 50ML MIN-BAG+ 50 ML IVPB SCH ×3 (04:42→21:30)
[2017-01-02] MEDS: LEVOTHYROXINE SODIUM 0.075 MG TAB PO SCH (05:44)
[2017-01-02] MEDS: INSULIN LISPRO 100 UNITS/ML PEN SUBCU SCH ×4 (07:53→21:00)
[2017-01-02] MEDS ORDERED: SODIUM CHLORIDE 0.9% (FLUSH) 10 ML SYG IV SCH (09:00)
[2017-01-02] MEDS: metFORMIN HCL 500 MG TAB PO SCH ×2 (09:29→18:05)
[2017-01-02] MEDS: VENLAFAXINE XR 75 MG CAP PO SCH ×2 (09:30→21:30)
[2017-01-02] MEDS ORDERED: POTASSIUM CHLORIDE 20 MEQ TAB PO ONE (12:29)
[2017-01-02] MEDS ORDERED: diphenhydrAMINE HCL 25 MG CAP PO PRN (18:25)
--- NOTE | 2017-01-02 20:45 | PCM.CORE ---
Physician DVT/VTE - Nurse DVT Assessment & Total Each Risk Factor Represents 3 Points: Medical PT with Hx of [place], CHF, Severe infection/sepsis Each Risk Factor Represents 2 Points: Confined to bed >72 hours Each Risk Factor Represents 1 Point: Age 41-60 Each Risk Factor is 1 Point: Obesity (BMI >25) DVT Assessment Score: 7 - 5 or more Very High Risk Treatments: Sequential Compression Device Pharmacological: Enoxaparin 40mg SQ Daily
[2017-01-02] MEDS ORDERED: NON-FORMULARY MEDICATION 1 EA MIS (Dexlansoprazole [Dexilant] 60 MG) PO SCH (21:00)
[2017-01-02] MEDS: [UNRECOGNIZED DRUG - REMARK] PO SCH (21:20)
[2017-01-02] MEDS: PANTOPRAZOLE SODIUM TAB 40 MG PO SCH (21:30)
[2017-01-02] MEDS: QUEtiapine FUMARATE 100 MG TAB PO SCH (21:30)
[2017-01-02] MEDS: SIMVASTATIN 20 MG TAB PO SCH (21:30)
[2017-01-02] MEDS: SODIUM CHLORIDE 0.9% (FLUSH) 10 ML SYG IV SCH (21:30)
[2017-01-02] MEDS: ENOXAPARIN SODIUM 40 MG/0.4 ML SYG SUBCU SCH (22:00)
[2017-01-02] MEDS: DOCUSATE CALCIUM 240 MG CAP PO SCH (22:32)
--- NOTE | 2017-01-02 22:59 | PN ---
DATE: 01/02/17 SUPERVISING PHYSICIAN: Praful Balderrama M.D. SUBJECTIVE: The patient is reporting that she feels better today. She has had no nausea or vomiting and remains without a fever. OBJECTIVE: VITAL SIGNS: T max 98.4, pulse 94, blood pressure 89/48, respirations 20, satting 97% on room air. I's and O's show a positive balance of 970 with 2020 in, 1050 out. With 81.2 kg. CHEST: Lungs were clear to auscultation bilaterally, just slightly diminished towards the bases. HEART: Regular rate and rhythm. ABDOMEN: Obese but soft with a colostomy in place. EXTREMITIES: Show no skin breakdown, clubbing or cyanosis. NEUROLOGIC: She is alert and oriented times three. LABORATORY: White count today is normalized at 9.6, hemoglobin 9.5, hematocrit 28.2, platelet count 130,000. Differential continues to show a left shift, alto improving. Chemistries show a persistent hyponatremia and hypokalemia with sodium 134, potassium 3.2, BUN 10, with creatinine less than 0.4. Repeat lactic acid last night was 1.2. Glucoses have been anywhere from 101 to 161, calcium 7.6. Liver functions show to be within normal limits. MICROBIOLOGY: Blood cultures remain negative so far. Urine culture preliminary shows need for re-incubation. She did have a urine culture that was completed on 11/09/16 that had Klebsiella pneumoniae. She has previously also had an Escherichia coli. Review of those sensitivity reports show that both species were sensitive to Meropenem. Final culture results on this admission are pending. RADIOLOGY: No additional radiographic studies were performed. ASSESSMENT: 1. Sepsis secondary to urinary tract infection with the patient having a history of previously having Escherichia coli and Klebsiella, both being sensitive in the past to Meropenem with current culture results at this time pending and the patient showing good response with IV fluids and antibiotic initiation with normalization of her lactic acid. 2. Leukocytosis with an elevated lactic acid secondary to #1 showing improvement with antibiotic therapy and IV fluids. 3. Hypotension, improved. 4. History of transverse myelitis. 5. Hypothyroidism on supplementation. 6. History of cerebrovascular accidents. 7. History of basilar meningitis. 8. 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 9. Diabetes mellitus type 2. PLAN: The patient is showing good response with initial antibiotic therapy and IV fluids. She is caught up on her IV fluid status at this time. Will plan to saline lock her as she is taking adequate p.o. fluids. Will continue with Meropenem and monitor her blood cultures and other culture results of the urine that are pending, and target antibiotic therapy according to those results when available. Will monitor blood sugars with Accu-Cheks and sliding scale. She is supposed to have her pain pump filled on Thursday by Dr. Mcnulty who is her pain medicine provider in [place] with his telephone number being [phone]. She is supposed to have this filled this Thursday. Will plan to touch base with him in regards to their plan of action. The patient will certainly benefit from an additional 24 to 48 hours of further antibiotic therapy awaiting final culture results, again with close monitoring of the blood cultures to rule out underlying bacteremia. Will anticipate discharge probably Thursday if not Thursday. Until then, continue to monitor and treat appropriately. #[id number] [facility]
[2017-01-03] MEDS ORDERED: SODIUM CHL 0.9% 50ML MIN-BAG+ 50 ML IVPB ONE ×3 (05:21→19:18)
[2017-01-03] MEDS ORDERED: MEROPENEM 1 GM VIAL IVPB ONE ×3 (05:21→19:18)
[2017-01-03] MEDS: MEROPENEM 1 GM in SODIUM CHL 0.9% 50ML MIN-BAG+ 50 ML IVPB SCH ×3 (05:25→20:00)
[2017-01-03] MEDS ORDERED: LEVOTHYROXINE SODIUM 0.075 MG TAB PO SCH (06:30)
[2017-01-03] MEDS: LEVOTHYROXINE SODIUM 0.075 MG TAB PO SCH (08:19)
[2017-01-03] MEDS: INSULIN LISPRO 100 UNITS/ML PEN SUBCU SCH ×3 (08:20→17:11)
[2017-01-03] MEDS: metFORMIN HCL 500 MG TAB PO SCH ×2 (08:20→17:10)
[2017-01-03] MEDS ORDERED: POLYETHYLENE GLYCOL 3350 17 GM PCKT PO ONE (10:19)
[2017-01-03] MEDS: VENLAFAXINE XR 75 MG CAP PO SCH ×2 (10:21→20:30)
[2017-01-03] MEDS: GABAPENTIN 300 MG CAP PO SCH ×3 (10:21→20:31)
[2017-01-03] MEDS: SODIUM CHLORIDE 0.9% (FLUSH) 10 ML SYG IV SCH ×2 (10:21→20:00)
[2017-01-03] MEDS ORDERED: POLYETHYLENE GLYCOL 3350 17 GM PCKT ONE (11:59)
[2017-01-03] MEDS: ACETAMINOPHEN 325 MG TAB PO PRN ×2 (12:23→22:10)
--- NOTE | 2017-01-03 17:38 | PN ---
DATE: 01/03/17 SUPERVISING PHYSICIAN: Praful Balderrama M.D. SUBJECTIVE: The patient has run just a low-grade fever through the night but remains stable. She has had no nausea, but she says she has not had a normal bowel movement through her colostomy as of yet. OBJECTIVE: VITAL SIGNS: Temperature 99 T max with pulse 80, blood pressure 100/ 68, satting 97% on room air. I's and O's show a negative balance of 2275 with 1225 in, 3500 out. Weight is 81.2 kg. CHEST: Lungs are clear to auscultation, just slightly diminished towards the bases. HEART: Regular rate and rhythm. ABDOMEN: Soft. Colostomy bag in place with minimal drainage. NEUROLOGIC: She is alert and oriented times three. LABORATORY: White count remains within normal limits at 7.3, hemoglobin is stable at 9.3, hematocrit 28.4, platelet count 171,000. Differential shows to be within normal limits today. Chemistries show improving potassium at 3.5, BUN is 7, creatinine was less than 0.4. Blood sugars have been anywhere from 107 to 161, calcium 8.3. MICROBIOLOGY: Preliminary culture results on the urine showed gram-negative rods more likely a Klebsiella species. Blood cultures remain negative at 24 hours. RADIOLOGY: There are no additional radiographic studies. ASSESSMENT: 1. Sepsis secondary to urinary tract infection with gram-negative rods likely Klebsiella species with a final identification and sensitivity pending with the patient showing good response with Meropenem and IV fluids. 2. Leukocytosis, resolved secondary to #1 and in conjunction with an elevated lactic acid as well as normalized with IV fluids and therapy with antibiotics. 3. Hypotension, improving. 4. History of transverse myelitis resulting in quadriplegia. 5. Hypothyroidism on supplementation. 6. History of cerebrovascular accidents. 7. History of basilar meningitis. 8. 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 9. Diabetes mellitus type 2 on oral therapy and stable. PLAN: Will continue with Meropenem today. She is taking adequate p.o. fluid and will continue with saline lock as she is showing stable hemodynamics. Will await final culture results to further target antibiotic therapy with anticipation of discharging once blood cultures have been at least negative for 48 or 72 hours. Once discharged, she will need close followup with her pain doctor, Dr. Mcnulty, phone number [phone] in [place] for refilling of her pain pump. Will anticipate again discharge in the next 24 to 48 hours. Until then, continue to monitor and treat appropriately. #[id number] [facility]
[2017-01-03] MEDS: ENOXAPARIN SODIUM 40 MG/0.4 ML SYG SUBCU SCH (20:30)
[2017-01-03] MEDS: SIMVASTATIN 20 MG TAB PO SCH (20:30)
[2017-01-03] MEDS: PANTOPRAZOLE SODIUM TAB 40 MG PO SCH (20:30)
[2017-01-03] MEDS: DOCUSATE CALCIUM 240 MG CAP PO SCH (20:31)
[2017-01-03] MEDS: traZODone HCL 50 MG TAB PO SCH (20:31)
[2017-01-03] MEDS: QUEtiapine FUMARATE 100 MG TAB PO SCH (20:31)
[2017-01-03] MEDS: BACLOFEN 10 MG TAB PO PRN (20:31)
[2017-01-03] MEDS: [UNRECOGNIZED DRUG - REMARK] PO SCH (20:32)
[2017-01-04] MEDS ORDERED: tiZANidine 4 MG TAB PO ONE ×2 (00:30→00:49)
[2017-01-04] MEDS: INSULIN LISPRO 100 UNITS/ML PEN SUBCU SCH ×4 (00:42→16:48)
[2017-01-04] MEDS: MEROPENEM 1 GM in SODIUM CHL 0.9% 50ML MIN-BAG+ 50 ML IVPB SCH (04:15)
[2017-01-04] MEDS ORDERED: SODIUM CHL 0.9% 50ML MIN-BAG+ 50 ML IVPB ONE ×3 (04:16→20:21)
[2017-01-04] MEDS ORDERED: MEROPENEM 1 GM VIAL IVPB ONE (04:16)
[2017-01-04] MEDS: ACETAMINOPHEN 325 MG TAB PO PRN (04:20)
[2017-01-04] MEDS: LEVOTHYROXINE SODIUM 0.075 MG TAB PO SCH (06:51)
[2017-01-04] MEDS: VENLAFAXINE XR 75 MG CAP PO SCH ×2 (08:11→21:06)
[2017-01-04] MEDS: SODIUM CHLORIDE 0.9% (FLUSH) 10 ML SYG IV SCH ×2 (08:11→21:07)
[2017-01-04] MEDS: GABAPENTIN 300 MG CAP PO SCH ×3 (08:11→21:05)
[2017-01-04] MEDS: metFORMIN HCL 500 MG TAB PO SCH ×2 (08:11→16:21)
[2017-01-04] MEDS ORDERED: cefTRIAXone SODIUM 1 GM VIAL ONE ×2 (08:57→20:23)
[2017-01-04] MEDS ORDERED: BACLOFEN 10 MG TAB PO PRN (09:05)
[2017-01-04] MEDS ORDERED: MAGNESIUM HYDROXIDE 30 ML UD PO ONE ×2 (09:26→21:00)
[2017-01-04] MEDS: cefTRIAXone SODIUM 1 GM in SODIUM CHL 0.9% 50ML MIN-BAG+ 50 ML IVPB SCH ×2 (10:19→21:08)
[2017-01-04] MEDS: POLYETHYLENE GLYCOL 3350 17 GM PCKT PO SCH (10:20)
--- NOTE | 2017-01-04 10:26 | RAD ---
PROCEDURE: XR CHEST 1 VIEW HISTORY: fever COMPARISON: 01/01/2017 TECHNIQUE: Single projection of the chest was done. FINDINGS: Note is again made of a 7.4 cm tubular structure projected over the upper mid tracheal region of uncertain etiology. An epidural pacemaker wire is also noted projected in the thoracic spinal canal . Minimal discoid atelectasis/infiltrate in the right midlung zone is noted There are no pneumothoraces or pleural effusions. The pulmonary vascularity is normal. The cardiomediastinal silhouette is stable. IMPRESSION: Note is again made of a 7.4 cm tubular structure projected over the upper mid tracheal region of uncertain etiology. An epidural pacemaker wire is also noted projected in the thoracic spinal canal . Minimal discoid atelectasis/infiltrate in the right midlung zone is noted Electronically signed by: Ezio Mclean MD 01/04/2017 10:24 AM CDT Workstation: [id number]
--- NOTE | 2017-01-04 19:15 | PN ---
DATE: 01/04/17 SUPERVISING PHYSICIAN: Praful Balderrama M.D. SUBJECTIVE: Last night the patient was having some issues with headaches. She was given some Toradol, a low dose of Dilaudid as well as additional muscle relaxants with Zanaflex which did initially resolve her headaches. She did show another temperature today with T max being 100.9, but she remains with no nausea or vomiting. She has still not had any significant movements through her colostomy. OBJECTIVE: VITAL SIGNS: T max 100.9, pulse 77, blood pressure 97/65, respirations 17, satting 97% on room air. I's and O's show a negative balance of 2470 with 905 in, 3375 out. Weight is 81.82 kg. CHEST: Lungs have remained clear to auscultation, just diminished towards the bases. HEART: Regular rate and rhythm. ABDOMEN: Soft with colostomy bag in place which is without any obvious stools. NEUROLOGIC: She remains alert and oriented times three. LABORATORY: Chemistries today show normal electrolytes with potassium 3.8, BUN 7, creatinine less than 0.4. Blood sugars have been 93 to 133, potassium 8.8. Group A strep was negative. MICROBIOLOGY: Flu swab for A and B by PCR that were both negative. Repeat urinalysis showed a small amount of leukocyte esterase, otherwise showing microscopic within normal limits with just rare bacteria. Culture is pending. RADIOLOGY: Chest x-ray single view today per radiology interpretation shows minimal discoid atelectasis infiltrate in the right mid lung zone. ASSESSMENT: 1. Sepsis secondary to underlying urinary tract infection with Klebsiella pneumoniae showing sensitive to Meropenem as well as Rocephin with the patient being transitioned to Rocephin. 2. Leukocytosis, resolved secondary to #1 in conjunction with previous elevated lactic acid as well as being normalized with IV fluid and IV antibiotics. 3. Febrile illness felt secondary to be due to underlying atelectasis as noted on radiographic studies, however cannot completely rule out underlying infectious process, although the patient remains hemodynamically stable and has been on antibiotics for an underlying urinary tract infection as noted in #1. 4. Hypotension, resolved. 5. History of transverse myelitis resulting in quadriplegia. 6. Hypothyroidism on supplementation. 7. History of cerebrovascular accidents. 8. History of basilar meningitis. 9. 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 10. Diabetes mellitus type 2 on oral therapy and stable. PLAN: Given the culture results today, will transition the patient from Meropenem to Rocephin 1 gram every 12 hours for an additional 24 hours prior to hopefully discharging tomorrow. She is due to have her Baclofen pump refilled. Will need to make arrangements for this. Again, hopefully can discharge tomorrow to home. Her pump will be filled by Dr. Mcnulty. Her number is [phone] in [place]. Will need to touch base with them in the morning first thing and again make arrangements to have this refilled before it runs out. Until then, will continue to monitor the patient closely and treat appropriately. Will reevaluate in the morning clinically. If she should show continued fever, will repeat laboratory studies, but right now her CBC has been normalized as well as her electrolytes. Once discharged, she will need close followup with her primary care provider, Dr. Lopez. #[id number] [facility]
[2017-01-04] MEDS: [UNRECOGNIZED DRUG - REMARK] PO SCH (21:00)
[2017-01-04] MEDS: SIMVASTATIN 20 MG TAB PO SCH (21:05)
[2017-01-04] MEDS: DOCUSATE CALCIUM 240 MG CAP PO SCH (21:05)
[2017-01-04] MEDS: QUEtiapine FUMARATE 100 MG TAB PO SCH (21:06)
[2017-01-04] MEDS: ENOXAPARIN SODIUM 40 MG/0.4 ML SYG SUBCU SCH (21:06)
[2017-01-04] MEDS: PANTOPRAZOLE SODIUM TAB 40 MG PO SCH (21:06)
[2017-01-04] MEDS: traZODone HCL 50 MG TAB PO SCH (21:06)
[2017-01-04] MEDS: IV SET AND CAP CHANGE INJ INJ SCH (21:10)
[2017-01-05] MEDS: INSULIN LISPRO 100 UNITS/ML PEN SUBCU SCH ×2 (00:57→08:01)
[2017-01-05] MEDS: LEVOTHYROXINE SODIUM 0.075 MG TAB PO SCH (06:05)
[2017-01-05] MEDS: ACETAMINOPHEN 325 MG TAB PO PRN (06:07)
[2017-01-05] MEDS: metFORMIN HCL 500 MG TAB PO SCH (08:16)
[2017-01-05 10:09] VITALS: BP 111/72; TEMP 97; O2SAT 99
[2017-01-05] MEDS: cefTRIAXone SODIUM 1 GM in SODIUM CHL 0.9% 50ML MIN-BAG+ 50 ML IVPB SCH (10:14)
[2017-01-05] MEDS: POLYETHYLENE GLYCOL 3350 17 GM PCKT PO SCH (10:14)
[2017-01-05] MEDS: VENLAFAXINE XR 75 MG CAP PO SCH (10:14)
[2017-01-05] MEDS: GABAPENTIN 300 MG CAP PO SCH (10:14)
[2017-01-05] MEDS: SODIUM CHLORIDE 0.9% (FLUSH) 10 ML SYG IV SCH (10:15)
[2017-01-08] MEDS ORDERED: RISEDRONATE SODIUM 35 MG PO SCH (09:00)
--- NOTE | 2017-01-08 10:30 | DS ---
SUPERVISING PHYSICIAN: Sonu Newman MD DISCHARGE DIAGNOSIS: 1. Sepsis secondary to underlying urinary tract infection with Klebsiella pneumoniae showing sensitivity to meropenem as well as Rocephin with the patient being transitioned to Rocephin, showing good clinical response. 2. Leukocytosis, resolved, secondary to #1 in conjunction with previous elevated lactic acid as well as being normalized with IV fluid and IV antibiotics. 3. Febrile illness, secondary to #1 with underlying atelectasis as noted on radiographic studies, however cannot completely rule out underlying infectious process, although the patient remains hemodynamically stable and has been on antibiotics for an underlying urinary tract infection as noted in #1. 4. Hypotension secondary to #1, resolved with IV fluids. 5. History of transverse myelitis resulting in quadriplegia. 6. Hypothyroidism on supplementation. 7. History of cerebrovascular accidents. 8. History of basilar meningitis. 9. 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 10. Diabetes mellitus type 2 on oral therapy and stable. HISTORY OF PRESENT ILLNESS: Ms. Norton is a 46-year-old female patient who presented to the Emergency Room on 01/01/17. 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 It was later complicated by transverse myelitis and a cerebrovascular accident. She was noted on admission to have elevated temperature. It was noted that about 1-1/2 months previously, she was in [facility] in [place] for E. coli urosepsis and actually had a PICC line that was removed several weeks previously. She states her caregiver noticed that her chronic indwelling Agustin catheter was not draining properly and had minimal urine output. She called [facility] and they came out and changed the catheter and did a UA. In the Emergency Room, she was found to have significant urinary tract infection. Upon reviewing the culture from the previous day, it shows Klebsiella pneumoniae and was sensitive to Merrem. She was given some fluids in the Emergency Room as well as given Merrem. Her vital signs initially in the Emergency Room showed systolic blood pressure was 79, respirations 18. Additional lab studies were done and she had a white blood cell count of 14,200 with a left shift noted. Initial lactic acid was 2.7. An abdominal pelvic CT was obtained and per radiologic interpretation there is minimal right-sided pleural effusion and minimal discoid atelectasis/infiltrate in the right lower lobe of the lung. There is no small or large bowel obstruction. There is left anterior pelvic wall colostomy. Her cervical spine CT per radiologic interpretation shows no acute fracture or traumatic subluxation. Her chest x-ray per radiologic interpretation shows no acute parenchymal processes seen. She was given fluids and antibiotics, stabilized and admitted to the Medical/Surgical Floor for continuation of treatment for underlying sepsis secondary to urinary tract infection. LABORATORY: Initial white count did show a leukocytosis. After initiation of antibiotic therapy, this normal and prior to discharge, white count was 7.3. Hemoglobin and hematocrit were stable at 9.3 and 28.4. Discharge platelet count 171,000. Differential did show a left shift initially. This resolved prior to discharge. Chemistries on admission showed electrolyte imbalance with hyponatremia, hypokalemia with sodium 132, potassium 3.0, BUN 13, creatinine less than 0.4, glucose 139, lactic acid elevated at 2.7. After IV fluids and repeat 4 hours post, it was down to 1.2. Liver functions were all within normal limits. Blood sugars were fairly well controlled ranging from 93 to 161. At discharge, her electrolytes were within normal limits the day before discharge with sodium 139, potassium 3.8. Urinalysis initially on admission showed a small amount of blood, positive nitrites with a large amount of leukocyte esterase. WBCs 30 to 40, RBCs 1 to 3, 4+ bacteria. Repeat urinalysis on 01/04/17 just showed trace amount of blood with a small amount of leukocyte esterase on dipstick. Microscopic was within normal limits with no epithelial cells and rare bacteria. Group A strep was negative. MICROBIOLOGY: Repeat urine culture on admission on 01/04/17 showed just moderate growth of budding yeast. Urine culture on 01/01/17 showed Klebsiella pneumoniae that was sensitive to meropenem, only resistant to ampicillin and nitrofurantoin. She had a group A strep culture that was negative with no growth. Blood cultures times two showed no growth at 5 days. Influenza A and B were both negative. RADIOLOGY: Chest x-ray initially in the Emergency Department prior to admission showed no acute pleural or parenchymal processes seen in the imaged lung otoole. There was note of a 7.4 cm tubular density projected over the thoracic tracheal shadow which was pain pump. She had a repeat chest x-ray prior to discharge and per radiologic interpretation on 01/04/17, single view, there was again noted the tubular structure within the upper medial tracheal area. There was no pneumothorax or pleural effusion noted. There remained a minimal discoid atelectasis demonstrated within the right mid lung zone. She also had a CT of the neck, cervical spine and per radiologic interpretation it showed no acute fractures or traumatic subluxations. There were moderate multilevel degenerative changes within the cervical spine. She also had an abdominopelvic CT without contrast and per radiologic interpretation, no acute findings were noted. Please refer to that report for full details. HOSPITAL COURSE: Ms. Norton was admitted on 01/01/17 for initiation of antibiotics secondary to sepsis from urinary tract infection that was noted to be Klebsiella pneumoniae. She was started on meropenem. After the final culture results were available, she was transitioned to Rocephin after she was shown to be stable. She had an episode of constipation and this resolved with Milk of Magnesia. She was shown to be clinically improving and was needing to be discharged to have her pain pump refilled the morning of discharged. PLAN: Ms. Norton was discharged on 01/05/17 to have close clinical followup as scheduled with Dr. Lopez on 01/08/17 at 11 AM. She was to resume her home medications as instructed and to start new prescriptions as directed. She was to return to the hospital should she have any concerning symptoms. PRESCRIPTIONS AT DISCHARGE: 1. Align 4 mg a day, #30. 2. Bactrim DS 1 tablet twice daily, #14. No other prescriptions were provided. All other medications to resume as prior to discharge. DIET AT DISCHARGE: Diabetic as tolerated. ACTIVITY: Bedrest secondary to quadriplegia with standard precautions for pressure ulcer elimination. CONDITION AT DISCHARGE: Stable and improved. [facility][id number] [facility]
== END 2017-01-05 09:35 | disposition home or self-care (01) | DRG 871 ==
LOC: ER 17:58 → MS 23:30
PROVIDERS: ADMIT Nurse Practitioner Acute Care; ATTEND Nurse Practitioner Family
DX: A41.89 Other specified sepsis (principal); G82.50 Quadriplegia, unspecified; N39.0 Urinary tract infection, site not specified; E87.1 Hypo-osmolality and hyponatremia; B96.1 Klebsiella pneumoniae [K. pneumoniae] as the cause of diseases classified elsewhere; G09 Sequelae of inflammatory diseases of central nervous system; E03.9 Hypothyroidism, unspecified; E11.9 Type 2 diabetes mellitus without complications; E87.6 Hypokalemia; K59.00 Constipation, unspecified; E66.9 Obesity, unspecified; Z96.89 Presence of other specified functional implants; Z79.84 Long term (current) use of oral hypoglycemic drugs; Z90.01 Acquired absence of eye; Z93.3 Colostomy status; Z88.6 Allergy status to analgesic agent; Z88.8 Allergy status to other drugs, medicaments and biological substances; Z68.26 Body mass index [BMI] 26.0-26.9, adult

== ENCOUNTER → 2017-02-19 | Outpatient (CLI) | payer MEDICARE, OTHER | END | disposition home or self-care (01) | LOC: BFHH 14:55 | PROVIDERS: ATTEND Family Medicine | DX: N39.0 Urinary tract infection, site not specified (principal) ==

== ENCOUNTER 2017-02-26 10:20 | Emergency (ER) | payer MEDICARE, OTHER ==
[2017-02-26] MEDS ORDERED: ONDANSETRON INJ 4 MG/2 ML VIAL IV ONE (10:51)
[2017-02-26] MEDS ORDERED: SODIUM CHLORIDE 0.9% 1000ML 1,000 ML IVS ONE (10:51)
[2017-02-26 10:52] VITALS: TEMP 97.7
--- NOTE | 2017-02-26 10:55 | ED.PDOC ---
History of Present Illness - General Chief Complaint: Abdominal Pain Stated Complaint: nausea, abdominal pain Time Seen by Provider: 02/26/17 10:29 Source: patient, RN notes reviewed, Vital Signs reviewed Exam Limitations: no limitations - History of Present Illness Initial Comments: Patient presents to ER vial EMS. She was recently diagnosed with a UTI and has started to just not feel good. Having abd. pain, nausea and no bowel movement for ~4 days. She has a colostomy and reports no output, not even gas. She is concerned she is developing sepsis again since she has had it twice this year related to prior UTI's. No fever or chills. Timing/Duration: getting worse - Over past 4 days Severity: moderate Improving Factors: nothing Worsening Factors: nothing Associated Symptoms: loss of appetite, malaise, nausea/vomiting Allergies/Adverse Reactions: Allergies Aspirin Allergy (Verified 08/06/16 17:32) Azithromycin [From Zithromax] Allergy (Verified 08/06/16 17:32) Diazepam [From Valium] Allergy (Verified 08/06/16 17:32) Levofloxacin [From Levaquin] Allergy (Verified 08/06/16 17:32) Meperidine [From Demerol HCl] Allergy (Verified 08/06/16 17:32) tape adhesive Allergy (Severe, Uncoded 01/02/17 07:40) Rash severe skin irritation Home Medications: Ambulatory Orders Dexlansoprazole [Dexilant] 60 mg PO BEDTIME 05/02/16 Docusate Calcium 240 mg PO BEDTIME 05/02/16 Furosemide [Lasix] 40 mg PO BID 05/02/16 Gabapentin [Neurontin] 600 mg PO TID 05/02/16 Levothyroxine Sodium 150 mcg PO DAILY 05/02/16 Metformin HCl 500 mg PO BID 05/02/16 Potassium Citrate (Alkalinizer [Potassium Citrate ER] 10 meq PO DAILY 05/02/16 QUEtiapine FUMARATE [Seroquel] 100 mg PO BEDTIME 05/02/16 Risedronate Sodium [Atelvia] 35 mg PO WKLY 05/02/16 Simvastatin 40 mg PO BEDTIME 05/02/16 Venlafaxine HCl [Effexor Xr] 75 mg PO DAILY 05/02/16 Venlafaxine Xr [Effexor Xr] 150 mg PO BEDTIME 05/02/16 Chlorpheniramine Maleate [Chlor-Trimeton Allergy] 12 mg PO BEDTIME #30 tab 08/06 Levothyroxine Sodium [Synthroid] 150 mcg PO DAILY 01/01/17 Trazodone HCl 100 mg PO BEDTIME 01/01/17 Bifidobacterium Infantis [Align] 4 mg PO DAILY #30 cap 01/05/17 Sulfa/Trimeth 800/160 (Ds) Tab [Bactrim DS Tab] 1 ea PO BID #14 tab 01/05/17 Ondansetron Odt [Zofran ODT] 8 mg PO Q6HR PRN #20 tab 02/26/17 Sulfa/Trimeth 800/160 (Ds) Tab [Bactrim DS] 1 tablet PO BID #14 tab 02/26/17 Review of Systems - Review of Systems Constitutional: States: malaise. Denies: chills, fever EENTM: States: no symptoms reported Respiratory: States: no symptoms reported Cardiology: States: no symptoms reported Gastrointestinal/Abdominal: States: see HPI, abdominal pain, constipation, nausea. Denies: diarrhea, vomiting Genitourinary: States: see HPI Musculoskeletal: States: no symptoms reported Skin: States: no symptoms reported Neurological: States: pre-existing deficit - Quadraplegic All other Systems: No Change from Baseline Past Medical History (General) - Patient Medical History Hx Seizures: No Hx Stroke: Yes Hx Asthma: Yes Hx of COPD: No Hx Cardiac Disorders: No Hx Congestive Heart Failure: No Hx Pacemaker: No Hx Hypertension: Yes Hx Diabetes: Yes Hx MRSA: No - Vaccination History Hx Tetanus, Diphtheria Vaccination: Yes Hx Influenza Vaccination: Yes Hx Pneumococcal Vaccination: Yes - Social History Hx Tobacco Use: Yes Hx Alcohol Use: No Hx Substance Use: No Hx Depression: No Hx Physical Abuse: No Hx Emotional Abuse: No Family Medical History - Family History Father Family History: Unknown Living Status: Still Living Physical Exam - Physical Exam General Appearance: Comfortable, No apparent distress, Well Developed, Well Nourished, Other - Laying in bed - Quadraplegic Ears, Nose, Throat: hearing grossly normal Neck: normal inspection Respiratory: lungs clear, normal breath sounds, no respiratory distress, no accessory muscle use Cardiovascular/Chest: regular rate, rhythm, no gallop, no murmur Gastrointestinal/Abdominal: normal bowel sounds, soft, no pulsatile mass, tenderness - RUQ, Epigastric & LUQ, other - Ostomy bag in place. Pain pump palpable R abdomen Neurologic: alert, normal mood/affect, oriented x 3 Skin Exam: normal color, warm/dry Comments: Vital Signs 02/26/17 10:21 Temperature 97.7 F Pulse Rate [ 81 right brachial] Respiratory 16 Rate Blood Pressure 124/71 [right brachial ] O2 Sat by Pulse 97 Oximetry Progress - Progress Progress: 02/26/17 12:33 Labs look benign and urine is improved. Abdominal x-ray shows no signs of constipation or obstruction. Patient feels the Macrobid is making her nauseated. Urine culture shows sensitivity to Rocephin and Bactrim. Will give IV dose of Rocephin here and change home antibiotic to Bactrim DS. Patient is agreeable with plan. 02/26/17 13:46 Tolerating PO. Will d/c home with Rx for Rocephin and Zofran. - Results/Orders Results/Orders: Laboratory Tests 02/26/17 02/26/17 02/26/17 11:15 11:15 11:53 WBC 11.0 H RBC 4.49 Hgb 12.2 Hct 37.1 MCV 82.7 MCH 27.1 MCHC 32.9 L RDW 15.9 H Plt Count 215 MPV 9.5 Absolute Neuts (auto) 8.70 H Absolute Lymphs (auto) 1.30 Absolute Monos (auto) 0.80 Absolute Eos (auto) 0.20 Absolute Basos (auto) 0.10 Neutrophils % 78.8 H Lymphocytes % 11.9 L Monocytes % 6.9 Eosinophils % 1.5 Basophils % 0.9 Sodium 139 Potassium 3.3 L Chloride 98 L Carbon Dioxide 30 Anion Gap 14.3 BUN 17 Creatinine 0.43 L BUN/Creatinine Ratio 39.5 H Random Glucose 112 H Serum Osmolality 279.8 Calcium 9.3 Total Bilirubin 0.5 AST 30 ALT 36 Alkaline Phosphatase 84 Serum Total Protein 8.0 Albumin 4.6 Globulin 3.4 Albumin/Globulin Ratio 1.4 Urine Color Yellow Urine Appearance Sl cloudy Urine pH 7.0 Ur Specific [place] 1.020 Urine Protein 100 H Urine Glucose (UA) Negative Urine Ketones Trace Urine Blood Moderate H Urine Nitrite Negative Urine Bilirubin Small H Urine Urobilinogen 0.2 Ur Leukocyte Esterase Small H Urine RBC >50 H Urine WBC >50 H Ur Epithelial Cells 3-5 Amorphous Sediment 2+ Urine Bacteria 2+ H - EKG/XRAY/CT XRAY: abdomen - No signs of constipation/obstruction per Radiologist Departure - Departure Clinical Impression: Nausea alone Urinary tract infection Qualifiers: Urinary tract infection type: acute cystitis Hematuria presence: with hematuria Qualified Code(s): N30.01 - Acute cystitis with hematuria Time of Disposition: 13:49 Disposition: Discharge to Home or Self Care Condition: Fair Departure Forms: ED Discharge - Pt. Copy, Patient Portal Self Enrollment Instructions: DI for Urinary Tract Infection (UTI) Diet: resume usual diet Activity: increase activity as tolerated Referrals: Shane Lopez MD [Primary Care Provider] - 1-2 Weeks Prescriptions: Ondansetron Odt [Zofran ODT] 8 mg PO Q6HR PRN #20 tab PRN Reason: Nausea/Vomiting Sulfa/Trimeth 800/160 (Ds) Tab [Bactrim DS] 1 tablet PO BID #14 tab Home Medications: Ambulatory Orders Dexlansoprazole [Dexilant] 60 mg PO BEDTIME 05/02/16 Docusate Calcium 240 mg PO BEDTIME 05/02/16 Furosemide [Lasix] 40 mg PO BID 05/02/16 Gabapentin [Neurontin] 600 mg PO TID 05/02/16 Levothyroxine Sodium 150 mcg PO DAILY 05/02/16 Metformin HCl 500 mg PO BID 05/02/16 Potassium Citrate (Alkalinizer [Potassium Citrate ER] 10 meq PO DAILY 05/02/16 QUEtiapine FUMARATE [Seroquel] 100 mg PO BEDTIME 05/02/16 Risedronate Sodium [Atelvia] 35 mg PO WKLY 05/02/16 Simvastatin 40 mg PO BEDTIME 05/02/16 Venlafaxine HCl [Effexor Xr] 75 mg PO DAILY 05/02/16 Venlafaxine Xr [Effexor Xr] 150 mg PO BEDTIME 05/02/16 Chlorpheniramine Maleate [Chlor-Trimeton Allergy] 12 mg PO BEDTIME #30 tab 08/06 Levothyroxine Sodium [Synthroid] 150 mcg PO DAILY 01/01/17 Trazodone HCl 100 mg PO BEDTIME 01/01/17 Bifidobacterium Infantis [Align] 4 mg PO DAILY #30 cap 01/05/17 Sulfa/Trimeth 800/160 (Ds) Tab [Bactrim DS Tab] 1 ea PO BID #14 tab 01/05/17 Ondansetron Odt [Zofran ODT] 8 mg PO Q6HR PRN #20 tab 02/26/17 Sulfa/Trimeth 800/160 (Ds) Tab [Bactrim DS] 1 tablet PO BID #14 tab 02/26/17
--- NOTE | 2017-02-26 11:42 | RAD ---
EXAM DESCRIPTION: Abdomen Series CLINICAL HISTORY: Abd pain/no bowel movement X 4 days COMPARISON: CT of the abdomen pelvis January 01, 2017. CT of the cervical spine January 01, 2017. FINDINGS: Single frontal view the thorax with supine and upright views of the abdomen pelvis. There is a focus of airspace opacity within the retrocardiac space obscuring the medial aspect of the left hemidiaphragm which may be pneumonia and/or atelectasis. No other consolidation is demonstrated. The heart is normal in size. There is a catheter projecting over the lower cervical upper thoracic spinal canal similar in appearance to the comparison CT of the neck and upper thorax January 01, 2017. No acute osseous pathology of the thorax. Supine and upright views of the abdomen show a normal bowel gas pattern without evidence of obstruction. No free intraperitoneal gas is demonstrated. No organomegaly or pathologic calcification is present. Mild amount of formed stool seen throughout the colon. No definite constipation. There is an implantable medical superintendent projecting over the right abdomen with catheter projecting over the spine. The osseous structures of the lumbar spine and pelvis are intact. IMPRESSION: Retrocardiac airspace disease. Pneumonia versus atelectasis versus scar. No radiographic evidence for acute abdominal or pelvic disease. Electronically signed by: Neto Parsons MD 02/26/2017 11:41 AM PLANT MAINTENANCE TECHNICIAN
[2017-02-26] MEDS ORDERED: cefTRIAXone SODIUM 1 GM in SODIUM CHL 0.9% 50ML MIN-BAG+ 50 ML IVPB ONE (12:35)
[2017-02-26] MEDS ORDERED: SULFA/TRIMETH 800/160 (DS) TAB 1 EA TAB PO ONE (12:35)
[2017-02-26] MEDS ORDERED: cefTRIAXone SODIUM 1 GM VIAL ONE (12:47)
[2017-02-26] MEDS ORDERED: SODIUM CHL 0.9% 50ML MIN-BAG+ 50 ML IVPB ONE (12:48)
[2017-02-26 14:58] VITALS: BP 97/56; O2SAT 95
== END 2017-02-26 14:50 | disposition home or self-care (01) ==
LOC: ER 10:20
DX: N30.01 Acute cystitis with hematuria (principal); R11.0 Nausea; E11.9 Type 2 diabetes mellitus without complications; I10 Essential (primary) hypertension; Z87.891 Personal history of nicotine dependence; Z79.899 Other long term (current) drug therapy; Z88.8 Allergy status to other drugs, medicaments and biological substances
CPT/HCPCS: 36415; 74020; 80053; 81001; 85025; 87086; J0696; J2405; J7030; J7050

== ENCOUNTER 2017-03-21 06:57 | Inpatient (IN) | payer MEDICARE, OTHER ==
--- NOTE | 2017-03-21 07:18 | ED.PDOC ---
History of Present Illness - General Chief Complaint: Neck Injury/Pain Stated Complaint: neck pain Time Seen by Provider: 03/21/17 07:11 Source: patient Additional Information: PT C/O PROGRESSIVE VALENZUELA AND NECK PAIN. 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 SHE IS CONCERNED IT MAY NOT BE FUNCTIONING. - History of Present Illness Timing/Duration: other - 3 DAYS Severity: moderate Improving Factors: nothing, other - HAS TRIED TRAMADOL, APAP AND BACLOFEN WITHOUT RELIEF. Worsening Factors: nothing Associated Symptoms: denies symptoms Allergies/Adverse Reactions: Allergies Aspirin Allergy (Verified 08/06/16 17:32) Azithromycin [From Zithromax] Allergy (Verified 08/06/16 17:32) Diazepam [From Valium] Allergy (Verified 08/06/16 17:32) Levofloxacin [From Levaquin] Allergy (Verified 08/06/16 17:32) Meperidine [From Demerol HCl] Allergy (Verified 08/06/16 17:32) Nitrofurantoin [From Macrobid] Allergy (Verified 03/21/17 07:14) tape adhesive Allergy (Severe, Uncoded 01/02/17 07:40) Rash severe skin irritation Home Medications: Ambulatory Orders Dexlansoprazole [Dexilant] 60 mg PO BEDTIME 05/02/16 Docusate Calcium 240 mg PO BEDTIME 05/02/16 Furosemide [Lasix] 40 mg PO BID 05/02/16 Gabapentin [Neurontin] 600 mg PO TID 05/02/16 Levothyroxine Sodium 150 mcg PO DAILY 05/02/16 Metformin HCl 500 mg PO BID 05/02/16 Potassium Citrate (Alkalinizer [Potassium Citrate ER] 10 meq PO DAILY 05/02/16 QUEtiapine FUMARATE [Seroquel] 100 mg PO BEDTIME 05/02/16 Risedronate Sodium [Atelvia] 35 mg PO WKLY 05/02/16 Simvastatin 40 mg PO BEDTIME 05/02/16 Venlafaxine HCl [Effexor Xr] 75 mg PO DAILY 05/02/16 Venlafaxine Xr [Effexor Xr] 150 mg PO BEDTIME 05/02/16 Chlorpheniramine Maleate [Chlor-Trimeton Allergy] 12 mg PO BEDTIME #30 tab 08/06 Levothyroxine Sodium [Synthroid] 150 mcg PO DAILY 01/01/17 Trazodone HCl 100 mg PO BEDTIME 01/01/17 Bifidobacterium Infantis [Align] 4 mg PO DAILY #30 cap 01/05/17 Sulfa/Trimeth 800/160 (Ds) Tab [Bactrim DS Tab] 1 ea PO BID #14 tab 01/05/17 Ondansetron Odt [Zofran ODT] 8 mg PO Q6HR PRN #20 tab 02/26/17 Sulfa/Trimeth 800/160 (Ds) Tab [Bactrim DS] 1 tablet PO BID #14 tab 02/26/17 Review of Systems - Review of Systems Constitutional: Denies: chills, fever EENTM: States: no symptoms reported Respiratory: Denies: cough, short of breath Cardiology: Denies: chest pain, palpitations Gastrointestinal/Abdominal: Denies: abdominal pain, constipation, diarrhea, nausea, vomiting Genitourinary: States: no symptoms reported, other - HAS CHRONIC BOWMAN WITH FREQUENT UTI'S AND SEPSIS Musculoskeletal: States: neck pain. Denies: back pain Skin: States: no symptoms reported Neurological: States: no symptoms reported, other - CHRONIC QUADRAPLEGIA Endocrine: States: no symptoms reported Hematologic/Lymphatic: States: no symptoms reported Past Medical History (General) - Patient Medical History Hx Seizures: No Hx Stroke: Yes Hx Asthma: Yes Hx of COPD: No Hx Cardiac Disorders: No Hx Congestive Heart Failure: No Hx Pacemaker: No Hx Hypertension: Yes Hx Diabetes: Yes Hx MRSA: No Hx Other - free text: HX OF TRANSVERSE MYELITIS WITH CHRONIC QUADRAPLEGIA - Vaccination History Hx Tetanus, Diphtheria Vaccination: Yes Hx Influenza Vaccination: Yes Hx Pneumococcal Vaccination: Yes - Social History Hx Tobacco Use: Yes Hx Alcohol Use: No Hx Substance Use: No Hx Depression: No Hx Physical Abuse: No Hx Emotional Abuse: No Family Medical History - Family History Father Family History: Unknown Living Status: Still Living Physical Exam - Physical Exam General Appearance: Alert, No apparent distress Eye Exam: bilateral normal Ears, Nose, Throat: hearing grossly normal, normal ENT inspection Neck: non-tender, other - DECREASED ROM SECONDARY TO CONTRACTURES Respiratory: lungs clear, normal breath sounds, no respiratory distress Cardiovascular/Chest: regular rate, rhythm, no murmur Gastrointestinal/Abdominal: non tender, soft, no organomegaly, other - COLOSTOMY LLQ Back Exam: no CVA tenderness, no vertebral tenderness Extremity: normal range of motion, non-tender Neurologic: other - 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 HAS RESPONDED TO FLUIDS. CURRENTLY C/O VALENZUELA. Departure - Departure Clinical Impression: Quadriplegia Hypotension Qualifiers: Hypotension type: unspecified hypotension type Qualified Code(s): I95.9 - Hypotension, unspecified ICD-10 Supporting Text: DDX: SEPSIS, DEHYDRATION, ORTHOSTATIC HYPOTENSION, NEUROGENIC HYPOTENSION Time of Disposition: 11:10 - D/W MIGEL, WILL ADMIT Disposition: Discharge to Home or Self Care Condition: Fair Departure Forms: ED Discharge - Pt. Copy, Patient Portal Self Enrollment Instructions: DI for Neck Pain Referrals: Shane Lopez MD [Primary Care Provider] - 1-2 Weeks Home Medications: Ambulatory Orders Dexlansoprazole [Dexilant] 60 mg PO BEDTIME 05/02/16 Docusate Calcium 240 mg PO BEDTIME 05/02/16 Furosemide [Lasix] 40 mg PO BID 05/02/16 Gabapentin [Neurontin] 600 mg PO TID 05/02/16 Levothyroxine Sodium 150 mcg PO DAILY 05/02/16 Metformin HCl 500 mg PO BID 05/02/16 Potassium Citrate (Alkalinizer [Potassium Citrate ER] 10 meq PO DAILY 05/02/16 QUEtiapine FUMARATE [Seroquel] 100 mg PO BEDTIME 05/02/16 Risedronate Sodium [Atelvia] 35 mg PO WKLY 05/02/16 Simvastatin 40 mg PO BEDTIME 05/02/16 Venlafaxine HCl [Effexor Xr] 75 mg PO DAILY 05/02/16 Venlafaxine Xr [Effexor Xr] 150 mg PO BEDTIME 05/02/16 Chlorpheniramine Maleate [Chlor-Trimeton Allergy] 12 mg PO BEDTIME #30 tab 08/06 Levothyroxine Sodium [Synthroid] 150 mcg PO DAILY 01/01/17 Trazodone HCl 100 mg PO BEDTIME 01/01/17 Bifidobacterium Infantis [Align] 4 mg PO DAILY #30 cap 01/05/17 Sulfa/Trimeth 800/160 (Ds) Tab [Bactrim DS Tab] 1 ea PO BID #14 tab 01/05/17 Ondansetron Odt [Zofran ODT] 8 mg PO Q6HR PRN #20 tab 02/26/17 Sulfa/Trimeth 800/160 (Ds) Tab [Bactrim DS] 1 tablet PO BID #14 tab 02/26/17
[2017-03-21] MEDS ORDERED: fentaNYL CITRATE INJ 50 MCG/ML AMP IV ONE (07:22)
--- NOTE | 2017-03-21 09:00 | CT ---
PROCEDURE: Head HISTORY: VALENZUELA Indication: Same as above Comparison: 11/09/2016 Technique: CT of the head was done without intravenous contrast was done in the orthogonal planes. This exam was performed according to our departmental dose-optimization program, which includes automated exposure control, adjustment of the mA and/or KV according to the patient's size and/or use of iterative reconstruction technique. FINDINGS: There is no intracranial hemorrhage, midline shift mass effect or acute focal infarct. Note is made of right frontoparietal and temporal craniotomy defects and evidence of prior surgery in the region of the right mastoid If clinical concern exists regarding an acute ischemic/vascular pathology being responsible for patient's symptomatology, an MRI of the brain is more sensitive than the current study, in ruling out such a possibility. There is good dempsey/white matter differentiation. The ventricular system is normal. 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 There is no visualization of acute fractures involving the calvarium or the skull base. IMPRESSION: There is no acute intracranial abnormality. Right sided craniotomy defects are again noted Electronically signed by: Ezio Mclean MD 03/21/2017 8:59 AM [employer]TR[employer] SPEC Workstation: [employer]
--- NOTE | 2017-03-21 09:03 | CT ---
PROCEDURE: Cervical Spine HISTORY: VALENZUELA Indication: Same as above Comparison: 03/11/2016 Technique: CT of the cervical spine was done without intravenous contrast, including axial, sagittal and coronal reconstructions. This exam was performed according to our departmental dose-optimization program, which includes automated exposure control, adjustment of the mA and/or KV according to the patient's size and/or use of iterative reconstruction technique. FINDINGS: There is no CT evidence of acute cervical spinal fractures or dislocations. The craniovertebral junction appears unremarkable. There is also evidence of mild to moderate degenerative change, including osteophyte formation, reduction in the intervertebral disc spaces, endplate degenerative changes and facet arthropathy seen at few levels. There is limited evaluation for acute or chronic intervertebral disc herniations or protrusions given the limitation of lack of intrathecal contrast. The prevertebral and the paravertebral soft tissues appear unremarkable. There is no gross evidence of epidural hematoma or paraspinal soft tissue fluid collections. The remainder of the visualized surrounding subcutaneous soft tissues and muscle structures are grossly unremarkable. The visualized airway appears unremarkable. The bone mineralization is normal. The visualized lung apices are unremarkable . The sagittal reconstructed images demonstrate normal alignment The coronal reconstructed images demonstrate normal alignment. IMPRESSION: Negative for acute cervical spine bony trauma. Noted is made of mild to moderate amount of regional change at a few levels in the cervical spine. Electronically signed by: Ezio Mclean MD 03/21/2017 9:01 AM [facility] Workstation: [id number]
--- NOTE | 2017-03-21 09:09 | RAD ---
PROCEDURE: XR CHEST 1 VIEW HISTORY: NECK AND HEAD PAIN. COMPARISON: 01/04/2017 TECHNIQUE: Single projection of the chest was done. FINDINGS: Note is again made of a tubular structure projected over the upper tracheal outline, unchanged and of uncertain significance . There are no discrete airspace infiltrates, pneumothoraces or pleural effusions. The pulmonary vascularity is normal. The cardiomediastinal silhouette is unremarkable for patient's age and sex. IMPRESSION: There is no acute pleural-parenchymal process seen in the imaged lung otoole. Note is again made of a tubular structure projected over the upper tracheal outline, unchanged and of uncertain significance . Electronically signed by: Ezio Mclean MD 03/21/2017 9:08 AM GI TECHNICIAN Workstation: [id number]
[2017-03-21] MEDS ORDERED: SODIUM CHLORIDE 0.9% 1000ML 1,000 ML IVS ONE ×4 (09:58→21:22)
[2017-03-21] MEDS ORDERED: CEFEPIME 2 GM in SODIUM CHL 0.9% 50ML MIN-BAG+ 50 ML IVPB ONE (10:01)
[2017-03-21] MEDS ORDERED: CEFEPIME 2 GM VIAL IVPB ONE ×2 (10:05→20:47)
[2017-03-21] MEDS ORDERED: SODIUM CHL 0.9% 50ML MIN-BAG+ 50 ML IVPB ONE ×2 (10:05→20:46)
[2017-03-21] MEDS ORDERED: HYDROcodone 7.5MG/APAP 325MG 1 EA TAB PO ONE (11:03)
--- NOTE | 2017-03-21 12:18 | HP ---
SUPERVISING PHYSICIAN: Sonu Newman M.D. CHIEF COMPLAINT: Headache and neck pain for 2 days. HISTORY OF PRESENT ILLNESS: This is a 46 year-old female patient who came to the Emergency Room today secondary to a 2 day onset of head and neck pain. She is a quadriplegic and bed bound due to spinal meningitis in 2001 and later complicated by transverse myelitis, and has a significant history of urinary tract infections. She does have a cervical shunt and was concerned that it was not functioning properly. In the Emergency Room, she was found to have a significant urinary tract infection with positive urine nitrites, trace of leukocyte esterase, 3 to 5 urine WBCs, 2+ urine bacteria and trace of urine blood. Her white count was normal at 6.6 with hemoglobin of 11.7, hematocrit 35.8. Chemistries are basically within normal limits but she had an elevated lactic acid of 2.4. Blood cultures were done as well as urine cultures. Radiology studies were done. Her head CT per radiology interpretation showed no acute intracranial abnormality. Chest x-ray per radiology interpretation showed no acute pleural parenchymal processes seen in the imaged lung otoole. The cervical spine CT showed negative for acute cervical spine bony trauma. I was called for admission to the hospital for dehydration and urosepsis. In the Emergency Room, she did receive Cefipime and 2 liters of IV fluids. She was also hypotensive and her blood pressure dropped down to 77/46. She was hypothermic with a temperature of 96. PAST MEDICAL HISTORY: 1. Diabetes mellitus type 2. 2. Transverse myelitis. 3. Hypothyroidism. 4. Cerebrovascular accident. 5. Basilar meningitis. 6. Chronic spasticity quadriparesis. 7. 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 PAST SURGICAL HISTORY: 1. Brain biopsy. 2. Facial nerve decompression. 3. Left eye prosthesis. 4. Placement of intrathecal Baclofen pump. 5. Colostomy. CURRENT MEDICATIONS: Per the EMR and awaiting verification. ALLERGIES: ASPIRIN, AZITHROMYCIN, DIAZEPAM, LEVOFLOXACIN, MEPERIDINE AND TAPE ADHESIVE. SOCIAL HISTORY: She is single and disabled. She denies any tobacco, ETOH or illicit drug use. REVIEW OF SYSTEMS: Positive for chills, negative for fever or weight changes. HEENT: Negative for sinus symptoms, ear pain, vision changes or sore throat. RESPIRATORY: Negative for coughing, wheezing or shortness of breath. CARDIAC: Negative for chest pain, palpitations or tachycardia. GASTROINTESTINAL: Positive for some mild nausea. Negative for constipation, diarrhea or vomiting. GENITOURINARY: Negative for foul-smelling urine, dysuria or hematuria. She does have an indwelling catheter. NEUROLOGIC: Positive for headaches. Negative for seizures or dizziness. PHYSICAL EXAMINATION: VITAL SIGNS: Temperature 96.4, heart rate 64, blood pressure 85/44, respiratory rate 16, O2 sat 98% on room air. GENERAL: This is a 46 year-old female patient who is lying in her hospital bed. She is in no acute distress. HEENT: Normocephalic and atraumatic. Oropharynx is clear. She does have oral thrush and she has an enucleated left eye. Her right eye is normal. NECK: Supple without mass. RESPIRATORY: Clear to auscultation bilaterally. CHEST: There is equal rise and fall of the chest with inspiration and expiration. CARDIOVASCULAR: Regular rate and rhythm. ABDOMEN: Obese, round. Bowel sounds are positive. She has a colostomy. She also has a Agustin catheter in place. EXTREMITIES: Generalized pedal edema to both feet with contracture deformities. NEUROLOGIC: She is awake, alert and oriented times three. LABORATORY: Labs are as per the history of present illness. ASSESSMENT: 1. Urosepsis with hypotension, hypothermia and elevated lactic acid level. 2. Hypotension most likely secondary to the urosepsis and has corrected somewhat with fluids. 3. History of transverse myelitis. 4. Hypothyroidism. 5. History of cerebrovascular accident. 6. History of basilar meningitis. 7. History of herpes keratitis resulting in enucleation of her left eye. PLAN: We will admit the patient to the hospital. She will continue on her Cefipime IV. We will await blood cultures and urine cultures, and change antibiotics as necessary. I will continue to give her fluids and repeat her lactic acid level. I have also started her on sliding scale insulin with blood sugar checks a.c. and h.s. Protonix has been started for ulcer prophylaxis as well as Lovenox for DVT prophylaxis. Home medications will be addressed as soon as they are verified. We will also need to check that her Agustin catheter has been changed out. Otherwise we will continue to monitor the patient closely and followup as needed. Dr. Newman is the collaborating physician available for consultation. #[id number] [facility]ITAL[facility]ass[facility]
[2017-03-21] MEDS ORDERED: KETOROLAC TROMETHAMINE INJ 30 MG/ML VIAL IV ONE (15:13)
[2017-03-21] MEDS ORDERED: SODIUM CHLORIDE 0.9% (FLUSH) 10 ML SYG IV PRN (15:14)
[2017-03-21] MEDS ORDERED: KCL 20 MEQ/NS 1,000 ML IVS PRN (15:19)
[2017-03-21] MEDS ORDERED: IV SET AND CAP CHANGE INJ INJ SCH (15:30)
[2017-03-21] MEDS ORDERED: PANTOPRAZOLE SODIUM IV 40 MG VIAL IV SCH (15:30)
[2017-03-21] MEDS ORDERED: ENOXAPARIN SODIUM 40 MG/0.4 ML SYG SUBCU SCH (15:30)
[2017-03-21] MEDS ORDERED: DEXTROSE 50% 25 GM/50 ML SYG IV PRN (16:41)
[2017-03-21] MEDS ORDERED: GLUCAGON INJ 1 MG VIAL SUBCU PRN (16:41)
[2017-03-21] MEDS ORDERED: CLOTRIMAZOLE 10 MG TROCHE PO PRN (16:41)
[2017-03-21] MEDS ORDERED: SODIUM CHLORIDE 0.9% 1000ML 1,000 ML ONE ×3 (18:37→23:46)
[2017-03-21] MEDS ORDERED: BACLOFEN 10 MG TAB PO PRN (19:24)
[2017-03-21] MEDS ORDERED: HYDROcodone 5MG/APAP 325MG 1 EA TAB PO PRN (19:26)
[2017-03-21] MEDS ORDERED: VENLAFAXINE XR 75 MG CAP ONE (20:28)
[2017-03-21] MEDS ORDERED: POTASSIUM CHLORIDE 10 MEQ TAB PO ONE (20:28)
[2017-03-21] MEDS ORDERED: GABAPENTIN 300 MG CAP ONE (20:28)
[2017-03-21] MEDS ORDERED: QUEtiapine FUMARATE 100 MG TAB ONE (20:28)
[2017-03-21] MEDS ORDERED: metFORMIN HCL 500 MG TAB ONE (20:28)
[2017-03-21] MEDS ORDERED: SIMVASTATIN 20 MG TAB ONE (20:29)
[2017-03-21] MEDS ORDERED: DOCUSATE CALCIUM 240 MG CAP ONE (20:29)
[2017-03-21] MEDS ORDERED: HYDROcodone 5MG/APAP 325MG 1 EA TAB ONE (20:29)
[2017-03-21] MEDS ORDERED: traZODone HCL 100 MG TAB PO ONE (20:29)
[2017-03-21] MEDS ORDERED: traZODone HCL 50 MG TAB ONE (20:45)
[2017-03-21] MEDS ORDERED: NON-FORMULARY MEDICATION 1 EA MIS (Dexlansoprazole [Dexilant] 60 MG) PO SCH (21:00)
[2017-03-21] MEDS ORDERED: DOCUSATE CALCIUM 240 MG CAP PO SCH (21:00)
[2017-03-21] MEDS ORDERED: metFORMIN HCL 500 MG TAB PO SCH (21:00)
[2017-03-21] MEDS ORDERED: NON-FORMULARY MEDICATION 1 EA MIS (Simvastatin [Simvastatin] 40 MG) PO SCH (21:00)
[2017-03-21] MEDS ORDERED: traZODone HCL 50 MG TAB PO SCH (21:00)
[2017-03-21] MEDS ORDERED: GABAPENTIN 300 MG CAP PO SCH (21:00)
[2017-03-21] MEDS ORDERED: SODIUM CHLORIDE 0.9% (FLUSH) 10 ML SYG IV SCH (21:00)
[2017-03-21] MEDS ORDERED: VENLAFAXINE XR 75 MG CAP PO SCH (21:00)
[2017-03-21] MEDS ORDERED: POTASSIUM CHLORIDE 10 MEQ TAB PO SCH (21:00)
[2017-03-21] MEDS ORDERED: QUEtiapine FUMARATE 100 MG TAB PO SCH (21:00)
[2017-03-21] MEDS ORDERED: INSULIN LISPRO 100 UNITS/ML PEN SUBCU SCH (21:00)
[2017-03-21] MEDS ORDERED: CEFEPIME 2 GM in SODIUM CHL 0.9% 50ML MIN-BAG+ 50 ML IVPB SCH (22:00)
[2017-03-21] MEDS ORDERED: DEXTROSE 5% 250ML 250 ML ONE (22:54)
[2017-03-21] MEDS ORDERED: NOREPINEPHRINE BITARTRATE 4 MG/4 ML VIAL IVPB ONE (22:54)
[2017-03-21] MEDS ORDERED: NOREPINEPHRINE BITARTRATE 4 MG in DEXTROSE 5% 250ML 250 ML IVPB SCH (23:30)
[2017-03-21 23:35] VITALS: TEMP 97.4; O2SAT 97
[2017-03-21] MEDS ORDERED: SODIUM CHLORIDE 0.9% 1000ML 1,000 ML IVS PRN (23:46)
[2017-03-22 00:20] VITALS: BP 118/69
[2017-03-22] MEDS ORDERED: FUROSEMIDE 40 MG TAB PO SCH (09:00)
[2017-03-22] MEDS ORDERED: NON-FORMULARY MEDICATION 1 EA MIS (Levothyroxine Sodium [Synthroid] 150 MCG) PO SCH (09:00)
--- NOTE | 2017-03-22 11:49 | DS ---
SUPERVISING PHYSICIAN: Sonu Newman M.D. DISCHARGE DIAGNOSIS: 1. Urosepsis with hypotension, hypothermia and elevated lactic acid level. 2. Hypotension most likely secondary to to the urosepsis that initially corrected with IV fluids that has now persisted. 3. History of transverse myelitis. 4. Hypothyroidism. 5. History of cerebrovascular accident. 6. History of basilar meningitis. 7. History of herpes keratitis resulting in enucleation of her left eye. HISTORY OF PRESENT ILLNESS: This is a 46 year-old female patient who came to the Emergency Room today secondary to a 2 day onset of head and neck pain. She is a quadriplegic and bed bound due to spinal meningitis in 2001 and later complicated by transverse myelitis, and has a significant history of urinary tract infections. She does have a cervical shunt and was concerned that it was not functioning properly. In the Emergency Room she was found to have a significant urinary tract infection with positive urine nitrites, trace of leukocyte esterase, 3 to 5 urine WBCs, 2+ urine bacteria and trace of urine blood. Her white count was normal at 6.6 with hemoglobin 11.7 and hematocrit 35.8. Chemistries were basically within normal limits, but she had an elevated lactic acid of 2.4. Blood cultures were done as well as urine cultures. Radiology studies were done. Her head CT per radiology interpretation showed no acute intracranial abnormality. Chest x-ray per radiology interpretation showed no acute pleural parenchymal processes seen in the imaged lung otoole. The cervical spine CT showed negative for acute cervical spine bony trauma. She was admitted to the hospital for dehydration, urosepsis and hypotension. She was started on Cefipime and given 2 liters of fluids in the Emergency Room. It was followed by 3 more liters of fluid after admission to the floor. HOSPITAL COURSE: She was given the fluids because her blood pressure, after an initial correction, systolic blood pressure dropped down into the 60s and 70s. She was awake and alert. Her O2 sats were greater than 95% on room air. Respiratory rate was around 18 to 20 breaths per minute. Heart rate was in the 60s to 80s. Neurologic status was intact. In spite of giving her numerous IV boluses of saline as well as starting her on her antibiotics, her hypotension did not resolve and we started her on a Levophed drip to support her blood pressure. I spoke at length with the patient to let her know that we would need to transfer her to a higher level of care. She agreed to go to [facility] in [place]. PLAN: We stabilized her blood pressure at about 3 mcg per minute of Levophed and it kept her systolic blood pressures between 100 and 125. All other vital signs were stable. Dr. Treviño, hospitalist in [place], accepted the patient at [phone]. She will be transferred via EMS to [facility] in [place] and be sent to room 748 for further treatment. After discharge, she is to followup with Dr. Lopez in clinic. DISCHARGE MEDICATIONS: 1. Metformin. 2. Docusate calcium. 3. Effexor XR. 4. Atelvia. 5. Lasix. 6. Simvastatin. 7. Dexalant. 8. Seroquel. 9. Neurontin. 10. Synthroid. 11. Trazodone. 12. Baclofen. 13. Potassium chloride. 14. Cefipime. 15. Clotrimazole Jairo. Dr. Newman is the collaborating physician available for consultation. #[id number] [facility]
[2017-03-28] MEDS ORDERED: RISEDRONATE SODIUM 35 MG PO SCH (09:00)
== END 2017-03-22 00:10 | disposition short-term general hospital (02) | DRG 871 ==
LOC: ER 06:57 → MS 12:17
PROVIDERS: ADMIT Nurse Practitioner Acute Care; ATTEND Nurse Practitioner Acute Care
DX: A41.9 Sepsis, unspecified organism (principal); G82.50 Quadriplegia, unspecified; N39.0 Urinary tract infection, site not specified; E87.2 Acidosis; I95.9 Hypotension, unspecified; R68.0 Hypothermia, not associated with low environmental temperature; E03.9 Hypothyroidism, unspecified; G09 Sequelae of inflammatory diseases of central nervous system; Z96.89 Presence of other specified functional implants; E11.9 Type 2 diabetes mellitus without complications; E66.9 Obesity, unspecified; Z86.73 Personal history of transient ischemic attack (TIA), and cerebral infarction without residual deficits; Z90.01 Acquired absence of eye; Z93.3 Colostomy status; Z88.6 Allergy status to analgesic agent; Z88.1 Allergy status to other antibiotic agents; Z88.8 Allergy status to other drugs, medicaments and biological substances; Z79.84 Long term (current) use of oral hypoglycemic drugs; Z79.899 Other long term (current) drug therapy; Z68.27 Body mass index [BMI] 27.0-27.9, adult

== ENCOUNTER → 2017-05-08 | Outpatient (CLI) | payer MEDICARE, MEDICAID | END | disposition home or self-care (01) | LOC: BFHH 12:15 | PROVIDERS: ATTEND Family Medicine | DX: N39.0 Urinary tract infection, site not specified (principal); E11.9 Type 2 diabetes mellitus without complications; E03.9 Hypothyroidism, unspecified; E78.5 Hyperlipidemia, unspecified; I10 Essential (primary) hypertension ==

== ENCOUNTER → 2017-05-22 | Outpatient (CLI) | payer MEDICARE, MEDICAID | LOC: BFHH 14:52 | PROVIDERS: ATTEND Family Medicine | DX: N39.0 Urinary tract infection, site not specified (principal) ==

== ENCOUNTER → 2017-05-25 | Outpatient (CLI) | payer MEDICARE, MEDICAID | LOC: GMAB 19:29 | PROVIDERS: ATTEND Family Medicine | DX: D50.9 Iron deficiency anemia, unspecified (principal); E53.8 Deficiency of other specified B group vitamins ==

== ENCOUNTER → 2017-05-29 | Outpatient (CLI) | payer MEDICARE, MEDICAID | LOC: BFHH 12:31 | PROVIDERS: ATTEND Family Medicine | DX: D64.9 Anemia, unspecified (principal); R19.5 Other fecal abnormalities ==

== ENCOUNTER 2017-07-04 14:34 | Inpatient (IN) | payer MEDICARE, OTHER ==
--- NOTE | 2017-07-04 14:51 | ED.PDOC ---
History of Present Illness - General Stated Complaint: BROUGHT BY EMS FOR EVALUATION OF NECK PAIN Time Seen by Provider: 07/04/17 14:48 Source: RN notes reviewed, EMS notes reviewed Exam Limitations: clinical condition - QUADRIPLEGIA DIFFICULTY UNDERSTANDING HER SYMPTOMS Additional Information: 46 YEAR OLD WHITE FEMALE BROUGHT HERE FOR NECK PAIN SHE WAS SEEN HERE BY MYSELF 2 DAYS AGO DIAGNOSED WITH UTI SHE HAS HAD MULTIPLE MEDICAL PROBLEM SINCE AGE 16 STARTING WITH MENINGITIS HERPETIC INFECTION OF HER LEFT EYE WITH SP ENUCLEATION TRANSVERSE MYELITIS NOW BED RIDDEN WITH HOME HEALTH CARE SHE HAS HISTORY OF QUADRIPLEGIA FROM TRANSVERSE MYELITIS SHE HAD ALSO COMPLAINT OF QUESTIONABLE CHEST PAIN THEREFORE EMS GAVE HER A SUB LINQUAL NITRO THAT DROPPED HER BLOOD PRESSURE SEE EMS RECORD SHE HAS NO HYPOXIA NO RESPIRATORY DISTRESS NO TACHYCARDIA NO FEVER NO SKIN RASH AT THIS TIME - History of Present Illness Timing/Duration: 1 week Improving Factors: movement, rest Associated Symptoms: denies symptoms Allergies/Adverse Reactions: Allergies Aspirin Allergy (Verified 07/02/17 17:56) Azithromycin [From Zithromax] Allergy (Verified 07/02/17 17:56) Benzocaine Allergy (Verified 07/02/17 17:56) Diazepam [From Valium] Allergy (Verified 07/02/17 17:56) Levofloxacin [From Levaquin] Allergy (Verified 07/02/17 17:56) Meperidine [From Demerol HCl] Allergy (Verified 07/02/17 17:56) Nitrofurantoin [From Macrobid] Allergy (Verified 07/02/17 17:56) tape adhesive Allergy (Severe, Uncoded 07/02/17 17:56) Rash severe skin irritation Home Medications: Ambulatory Orders Dexlansoprazole [Dexilant] 60 mg PO BEDTIME 05/02/16 Docusate Calcium 240 mg PO BEDTIME 05/02/16 Furosemide [Lasix] 40 mg PO BID 05/02/16 Gabapentin [Neurontin] 600 mg PO BID 05/02/16 Metformin HCl 500 mg PO BID 05/02/16 QUEtiapine FUMARATE [Seroquel] 100 mg PO BID 05/02/16 Risedronate Sodium [Atelvia] 35 mg PO WKLY 05/02/16 Simvastatin 40 mg PO BEDTIME 05/02/16 Venlafaxine HCl [Effexor Xr] 75 mg PO BID 05/02/16 Levothyroxine Sodium [Synthroid] 150 mcg PO DAILY 09/14/17 Trazodone HCl 100 mg PO BEDTIME 01/01/17 Baclofen [Lioresal] 10 mg PO Q8HR PRN 03/21/17 Cefepime [Maxipime] 2 gm IVPB Q12H vial 03/21/17 Clotrimazole Jairo [Mycelex Jairo] 10 mg PO 5XD PRN jairo 03/21/17 Potassium Chloride [K-Tab] 10 meq PO BID 03/21/17 Sulfamethoxazole-Trimethoprim [Bactrim Ds 800-160 mg] 1 tablet PO BID #20 tablet 07/02/17 Review of Systems - Review of Systems All other Systems: No Change from Baseline Past Medical History (General) - Patient Medical History Hx Seizures: No Hx Stroke: Yes Hx Asthma: Yes Hx of COPD: No Hx Cardiac Disorders: No Hx Congestive Heart Failure: No Hx Pacemaker: No Hx Hypertension: Yes Hx Diabetes: Yes Hx MRSA: No - Vaccination History Hx Tetanus, Diphtheria Vaccination: Yes Hx Influenza Vaccination: Yes Hx Pneumococcal Vaccination: Yes - Social History Hx Tobacco Use: Yes Hx Chewing Tobacco Use: No Hx Alcohol Use: No Hx Substance Use: No Hx Substance Use Treatment: No Hx Depression: No Hx Physical Abuse: No Hx Emotional Abuse: No - Female History Patient : No Family Medical History - Family History Father Family History: Unknown Living Status: Still Living Physical Exam - Physical Exam General Appearance: Comfortable Eye Exam: bilateral normal Ears, Nose, Throat: hearing grossly normal, normal ENT inspection Neck: non-tender - NO MENIGEAL SIGNS HOWEVER MUSCLE SPASM NOTED ON THE LEFT SCM AND LATERAL NECK Respiratory: chest non-tender, lungs clear, normal breath sounds, no respiratory distress, no accessory muscle use Cardiovascular/Chest: regular rate, rhythm, no edema, no gallop Gastrointestinal/Abdominal: normal bowel sounds, non tender, soft, no organomegaly Extremity: other - GENERAL MUSCLE WASTING NOTED IN ALL 4 EXTREMITIES Progress - EKG/XRAY/CT Comments: SINUS BRADYCARIA NO ACUTE ST ELEVATION NORMAL AXIS Departure - Departure Clinical Impression: Quadriparesis, Transverse myelitis Time of Disposition: 19:00 Disposition: Admit Patient Condition: Poor Referrals: Shane Lopez MD [Primary Care Provider] - 1-2 Weeks Home Medications: Ambulatory Orders Dexlansoprazole [Dexilant] 60 mg PO BEDTIME 05/02/16 Docusate Calcium 240 mg PO BEDTIME 05/02/16 Furosemide [Lasix] 40 mg PO BID 05/02/16 Gabapentin [Neurontin] 600 mg PO BID 05/02/16 Metformin HCl 500 mg PO BID 05/02/16 QUEtiapine FUMARATE [Seroquel] 100 mg PO BID 05/02/16 Risedronate Sodium [Atelvia] 35 mg PO WKLY 05/02/16 Simvastatin 40 mg PO BEDTIME 05/02/16 Venlafaxine HCl [Effexor Xr] 75 mg PO BID 05/02/16 Levothyroxine Sodium [Synthroid] 150 mcg PO DAILY 01/01/17 Trazodone HCl 100 mg PO BEDTIME 01/01/17 Baclofen [Lioresal] 10 mg PO Q8HR PRN 03/21/17 Cefepime [Maxipime] 2 gm IVPB Q12H vial 03/21/17 Clotrimazole Jairo [Mycelex Jairo] 10 mg PO 5XD PRN jairo 03/21/17 Potassium Chloride [K-Tab] 10 meq PO BID 03/21/17 Sulfamethoxazole-Trimethoprim [Bactrim Ds 800-160 mg] 1 tablet PO BID #20 tablet 07/02/17 Comments: DISCUSSED WITH [facility] FOR ADMISSION SHE HAS DNR STATUS
[2017-07-04] MEDS ORDERED: SODIUM CHLORIDE 0.9% 1000ML 1,000 ML IVS ONE (15:00)
--- NOTE | 2017-07-04 15:31 | RAD ---
Procedure: XR CHEST 1 VIEW Exam Date: 07/04/2017 3:05 PM CDT Ordering Provider: Lenny Avalos Clinical Indication: Chest discomfort Comparison: None Findings: There is a catheter tubing projecting over the trachea. This may be outside the patient. Correlate with direct visual inspection. There is a left basilar consolidation. No pleural effusion or pneumothorax is present. Heart size is normal. Impression: Left basilar consolidation which may represent atelectasis, aspiration, or pneumonia. Recommend follow-up with two views of the chest to document resolution. Electronically signed by: Ector Thomas MD 07/04/2017 3:30 PM CDT
--- NOTE | 2017-07-04 20:14 | HP ---
SUPERVISING PHYSICIAN: Sonu Newman MD CHIEF COMPLAINT: Altered mental status and lethargy. HISTORY OF PRESENT ILLNESS: This is a 46 year-old female patient who was brought into the Emergency Room this evening due to decreased level of consciousness and lethargy. She had also complained of some neck pain at some point. She had been in the Emergency Room two days prior and diagnosed with a urinary tract infection and given Bactrim at that time. She has a chronic indwelling catheter. She has a significant history for urosepsis of multidrug resistant strains. Many years ago she contracted meningitis and as resultant had transverse myelitis and has been bedridden for many years. In the Emergency Room her chest x-ray showed a left lower lobe pneumonia and her initial urine culture from two days ago showed gram positive cocci. Sensitivity should be available tomorrow. Her laboratory showed a white count of 4.9 with a hemoglobin of 9.6, hematocrit of 30.0. Her platelet count was 246,000 and neutrophils 75.3. Sodium 139, potassium 3.8, chloride 106, carbon dioxide 27, BUN 8, creatinine less than 0.4. Glucose 94, magnesium 1.6. Her CKMB was 5.3 and BNP is 106. Lactic acid 1.3. She received a liter of fluids in the Emergency Room and in the Emergency Room she was lethargic and was unresponsive. Her temperature was 96.2. Heart rate was down as low as 50, it is now 59. Respiratory rate 8 to 10, blood pressure was as low as 69/41. Her father is out of town and several attempts were made to call him to give an update on the patient but they were unable to contact him. The patient has an out of hospital DNR. I was called for admission to the hospital. . PAST MEDICAL HISTORY: 1. Diabetes mellitus type 2. 2. Transverse myelitis. 3. Hypothyroidism. 4. Cerebrovascular accident. 5. Basilar meningitis. 6. Chronic spasticity quadriparesis. 7. 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 8. Chronic headaches. PAST SURGICAL HISTORY: 1. Brain biopsy. 2. Facial nerve decompression. 3. Left eye surgery with resulting prosthesis. 4. Placement of intrathecal Baclofen pump. 5. Colostomy. CURRENT MEDICATIONS: Per the EMR and awaiting verification. ALLERGIES: ASPIRIN, AZITHROMYCIN, DIAZEPAM, LEVOFLOXACIN, MEPERIDINE AND TAPE ADHESIVE. SOCIAL HISTORY: She is single and disabled. She lives with her father and has caregivers. She denies any tobacco, ETOH or illicit drug use. REVIEW OF SYSTEMS: Unable to obtain due to patient's lethargy, although she did express that her head was hurting. Otherwise, she did not answer any questioning. PHYSICAL EXAMINATION: VITAL SIGNS: Temperature 96.2, pulse rate 59, blood pressure 85/50, respiratory rate is up to 15. 02 saturation is 97% on room air. GENERAL: This is a 46 year-old female patient laying in her hospital bed. She is in no acute distress. HEENT: Normocephalic and atraumatic. Oropharynx is clear. She has an enucleated left eye. Her right eye is normal. NECK: Supple without mass. CHEST: Diminished breath sounds throughout. There is no wheezing or rhonchi noted. There is equal and rise of the chest with inspiration and expiration. CARDIOVASCULAR: Regular rate, bradycardic to regular rhythm. ABDOMEN: Soft, nondistended. Bowel sounds are positive. She has a colostomy as well as a Agustin catheter in place. EXTREMITIES: There is generalized lower extremity edema with contracture deformities. NEUROLOGIC: She is very lethargic, occasionally answers some yes/no questions. LAB AND FILMS: As per the history of present illness. ASSESSMENT: 1. Urinary tract infection with significant history of multi-drug resistant urosepsis in a patient with an indwelling Agustin catheter. There are also concerns for early sepsis due to her hypotension and her lethargy, although her lactic acid was normal at 1.3. 2. Left lower lobe pneumonia, again with concerns for early sepsis. 3. Hypotension, most likely secondary to #1 and #2. 4. Apnea.. 5. History of transverse myelitis. 6. History of basilar meningitis. 7. Hypothyroidism. 8. Chronic headaches. 9. Hypomagnesemia. 10. History of cerebrovascular accident. 11. 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 PLAN: We will admit the patient to the hospital. I have ordered cultures on her as well as I have made her n.p.o. due to her lethargy and she will not be able to eat or take her medications at this time. We will monitor that closely. I have started her on Meropenem and hopefully her urine culture and sensitivity will be available tomorrow. She has a baclofen pump but she also takes muscle relaxers routinely so I have ordered some IV muscle relaxers as well as some IV morphine for her headache. I will correct her magnesium. I spoke to her father on the phone this evening and discussed with him her plan of care and he is camping around [place], [place] and I will update him in the morning. At this point, her vital signs have improved some with the fluids and I am hoping she will improve with her IV antibiotics. I have also ordered Protonix for ulcer prophylaxis and Lovenox for DVT prophylaxis. She is a DNR but it may be beneficial for hospice care to be consulted at some point. Otherwise, we with continue to monitor the patient closely and follow as needed. Dr. Newman is the collaborating physician available for consultation. #[id number] [facility]
[2017-07-04] MEDS ORDERED: LEVALBUTEROL NEBS 1.25 MG/3 ML VIAL NEB PRN (21:40)
[2017-07-04] MEDS ORDERED: ORPHENADRINE CITRATE 30 MG/ML AMP IV PRN (21:46)
[2017-07-04] MEDS ORDERED: PANTOPRAZOLE SODIUM IV 40 MG VIAL IV SCH (22:00)
[2017-07-04] MEDS ORDERED: MAGNESIUM SULFATE PREMIX 2GM 2 GM in PREMIX BAG 1 BAG IVPB ONE (22:13)
[2017-07-04] MEDS ORDERED: MEROPENEM 1 GM VIAL IVPB ONE (22:19)
[2017-07-04] MEDS ORDERED: MAGNESIUM SULFATE PREMIX 2GM 50 ML IVPB ONE (22:19)
[2017-07-04] MEDS ORDERED: SODIUM CHL 0.9% 50ML MIN-BAG+ 50 ML IVPB ONE (22:19)
[2017-07-04] MEDS: MEROPENEM 1 GM in SODIUM CHL 0.9% 50ML MIN-BAG+ 50 ML IVPB SCH (22:25)
[2017-07-04] MEDS: IV SET AND CAP CHANGE INJ INJ SCH (22:26)
[2017-07-04] MEDS ORDERED: ENOXAPARIN SODIUM 40 MG/0.4 ML SYG SUBCU SCH (22:30)
[2017-07-04] MEDS: MORPHINE SULFATE INJ 10 MG/ML VIAL IV PRN (22:38)
[2017-07-04] MEDS: KCL 20MEQ/D5 1/2NS 1,000 ML IVS PRN (23:05)
[2017-07-05] MEDS ORDERED: SODIUM CHL 0.9% 50ML MIN-BAG+ 50 ML IVPB ONE ×3 (04:40→20:03)
[2017-07-05] MEDS ORDERED: MEROPENEM 1 GM VIAL IVPB ONE ×3 (04:40→20:04)
[2017-07-05] MEDS: MEROPENEM 1 GM in SODIUM CHL 0.9% 50ML MIN-BAG+ 50 ML IVPB SCH ×3 (05:22→21:49)
[2017-07-05] MEDS: MORPHINE SULFATE INJ 10 MG/ML VIAL IV PRN (05:30)
[2017-07-05] MEDS ORDERED: VENLAFAXINE XR 75 MG CAP PO SCH (09:00)
[2017-07-05] MEDS ORDERED: metFORMIN HCL 500 MG TAB PO SCH (09:00)
[2017-07-05] MEDS ORDERED: RISEDRONATE SODIUM 35 MG PO SCH (09:00)
[2017-07-05] MEDS ORDERED: DEXTROSE 50% 25 GM/50 ML SYG IV PRN (09:35)
[2017-07-05] MEDS ORDERED: GLUCAGON INJ 1 MG VIAL SUBCU PRN (09:35)
[2017-07-05] MEDS: KCL 20MEQ/D5 1/2NS 1,000 ML IVS PRN (09:35)
[2017-07-05] MEDS: POTASSIUM CHLORIDE 10 MEQ TAB PO SCH ×2 (09:50→17:20)
[2017-07-05] MEDS: QUEtiapine FUMARATE 100 MG TAB PO SCH ×2 (09:50→21:21)
[2017-07-05] MEDS: GABAPENTIN 300 MG CAP PO SCH ×3 (09:50→21:20)
[2017-07-05] MEDS: FUROSEMIDE 40 MG TAB PO SCH ×2 (09:50→17:20)
[2017-07-05] MEDS ORDERED: HYDROcodone 5MG/APAP 325MG 1 EA TAB ONE (10:01)
[2017-07-05] MEDS: BACLOFEN 10 MG TAB PO PRN (10:05)
[2017-07-05] MEDS ORDERED: POTASSIUM CHLORIDE 20 MEQ TAB PO ONE (10:10)
[2017-07-05] MEDS: HYDROcodone 5MG/APAP 325MG 1 EA TAB PO PRN ×2 (10:29→17:27)
--- NOTE | 2017-07-05 11:28 | PN ---
DATE: 07/05/17 SUPERVISING PHYSICIAN: Sonu Newman M.D. SUBJECTIVE: The patient is sitting up in her hospital room. She is alert and much improved since last night. She actually carries on a conversation and has had her oral medications this morning as well as taking p.o. fluids without any problems. She does complain of a chronic headache as well as musculoskeletal pain. We have ordered medications for that. She has no complaints of nausea, vomiting, diarrhea, constipation, chest pain or shortness of breath. OBJECTIVE: VITAL SIGNS: She is afebrile, heart rate 56, blood pressure 81/53, respiratory rate 18, O2 sat is 91% on room air. RESPIRATORY: Somewhat diminished at the bases but no wheezing or rhonchi noted. CARDIAC: Bradycardic rate, regular rhythm. GASTROINTESTINAL: Abdomen is soft, nondistended. Bowel sounds are positive. Colostomy is in place as well as a chronic indwelling Agustin catheter. NEUROLOGIC: She is awake, alert and oriented times three. LABORATORY: WBCs are 4.7, hemoglobin 10.1, hematocrit 31.6. Sodium 138, potassium 3.5, chloride 102, carbon dioxide 28, BUN 8, creatinine less than 0.4 , glucose 137, calcium 8.3, magnesium 2.3. Preliminary blood cultures are negative. Urine culture is positive for Staphylococcus aureus. It is pansensitive. Although Merrem is not on the profile, she is clinically improving. All other labs and films have been reviewed via the EMR. ASSESSMENT: 1. Urinary tract infection with significant history of multi-drug resistant urosepsis presently her urine cultures show non-MRSA. She has a chronic indwelling catheter. Cultures show pansensitivity. She is on Merrem. 2. Left lower lobe pneumonia with concerns for early sepsis on Merrem and clinically improving. 3. Hypotension that has improved most likely secondary to #1 and #2. 4. Apnea that has resolved. 5. History of transverse myelitis. 6. History of basilar meningitis. 7. Hypothyroidism. 8. Chronic headaches. 9. Hypomagnesemia. 10. History of cerebrovascular accident. 11. 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 PLAN: We will continue present supportive care. I have restarted her home medications as well as added Marble for pain. She has also gotten an additional of potassium as her potassium was slightly low this morning. Will do lab and a chest x-ray in the morning. Her lab will also include a TSH. As for now, we will hold her Metformin due to her low renal function and recommended by pharmacy. She is on sliding scale insulin with Accu-Cheks a.c. and h.s. I have decreased her fluids. Those will need to be discontinued in the next 24 hours as long as she continues to take p.o. fluids without problems. Will continue to monitor her closely and follow as needed. Dr. Newman is the collaborating physician available for consultation. #[id number] [facility]ISION[facility]
[2017-07-05] MEDS: INSULIN LISPRO 100 UNITS/ML PEN SUBCU SCH ×3 (11:29→21:38)
[2017-07-05] MEDS ORDERED: PANTOPRAZOLE SODIUM IV 40 MG VIAL IV SCH (21:00)
[2017-07-05] MEDS: ENOXAPARIN SODIUM 40 MG/0.4 ML SYG SUBCU SCH (21:20)
[2017-07-05] MEDS: VENLAFAXINE XR 75 MG CAP PO SCH (21:21)
[2017-07-05] MEDS: SIMVASTATIN 20 MG TAB PO SCH (21:21)
[2017-07-05] MEDS: DOCUSATE CALCIUM 240 MG CAP PO SCH (21:22)
[2017-07-06] MEDS: HYDROcodone 5MG/APAP 325MG 1 EA TAB PO PRN ×4 (00:19→22:36)
[2017-07-06] MEDS ORDERED: SODIUM CHL 0.9% 50ML MIN-BAG+ 50 ML IVPB ONE ×3 (03:41→19:57)
[2017-07-06] MEDS ORDERED: MEROPENEM 1 GM VIAL IVPB ONE (03:41)
[2017-07-06] MEDS ORDERED: LEVOTHYROXINE SODIUM 0.075 MG TAB ONE (03:43)
[2017-07-06] MEDS: BACLOFEN 10 MG TAB PO PRN (05:15)
[2017-07-06] MEDS: MEROPENEM 1 GM in SODIUM CHL 0.9% 50ML MIN-BAG+ 50 ML IVPB SCH (05:39)
[2017-07-06] MEDS: KCL 20MEQ/D5 1/2NS 1,000 ML IVS PRN (06:24)
[2017-07-06] MEDS: LEVOTHYROXINE SODIUM 0.075 MG TAB PO SCH (06:33)
--- NOTE | 2017-07-06 06:53 | RAD ---
Chest single view on 07/06/2017 CLINICAL INDICATION: Left lower lobe pneumonia COMPARISON: 07/04/2017 FINDINGS: There is mild elevation of the right hemidiaphragm. There is continued left retrocardiac opacity consistent with likely pneumonia. There is minimal right basilar atelectasis. The lungs are otherwise clear. Heart is within normal limits for size. ET tube has been removed. IMPRESSION: Interval extubation with otherwise no significant change. Electronically signed by: Ilan Gutierrez 07/06/2017 6:52 AM CDT
[2017-07-06] MEDS: INSULIN LISPRO 100 UNITS/ML PEN SUBCU SCH ×4 (07:17→21:30)
[2017-07-06] MEDS: POTASSIUM CHLORIDE 10 MEQ TAB PO SCH ×2 (07:27→18:00)
[2017-07-06] MEDS: MORPHINE SULFATE INJ 10 MG/ML VIAL IV PRN ×2 (08:27→22:32)
[2017-07-06] MEDS: FUROSEMIDE 40 MG TAB PO SCH ×2 (08:30→17:59)
[2017-07-06] MEDS: QUEtiapine FUMARATE 100 MG TAB PO SCH ×2 (08:30→22:34)
[2017-07-06] MEDS: GABAPENTIN 300 MG CAP PO SCH ×3 (08:30→22:34)
[2017-07-06] MEDS ORDERED: LORATADINE 10 MG TAB PO PRN (09:00)
[2017-07-06] MEDS ORDERED: cefTRIAXone SODIUM 1 GM in SODIUM CHL 0.9% 50ML MIN-BAG+ 50 ML IVPB SCH (10:00)
[2017-07-06] MEDS: DOXYCYCLINE HYCLATE CAP 100 MG CAP PO SCH ×2 (10:20→22:34)
--- NOTE | 2017-07-06 11:29 | CT ---
EXAM DESCRIPTION: Head: Computed Tomography. CLINICAL HISTORY: severe VALENZUELA and Neck pain COMPARISON: CT cervical spine March 21 2017. TECHNIQUE: Non-helical axial scans through the skull and brain, at 2.5 mm intervals, non-contrast. Coronal and sagittal 2.0 mm reconstructions. Total Exam DLP: 859.97 mGy-cm. This exam was performed according to our departmental dose-optimization program which includes automated exposure control, adjustment of the mA and/or kV according to patient size and/or use of iterative reconstruction technique; to reduce radiation dose to as low as reasonably achievable (ALARA). Technically difficult study due to patient mental status moving from optimal CT head positioning. FINDINGS: No hemorrhage, no mass-effect, and no midline shift. Normal dempsey-white matter differentiation. No abnormal radiodense material in the brain parenchyma. Vascular calcifications not present; physiologic calcifications in the pineal gland and choroid plexus. No effacement or displacement of the ventricles, CSF spaces, or subdural spaces. No extra axial fluid collection or hemorrhage. Previous fracture and internal fixation of right temporal and parietal bones. Hypertrophy of the inner table of the frontal bone of the skull bilaterally. Included paranasal sinuses and mastoid air cells are well - aerated. IMPRESSION: 1. No hemorrhage, no mass effect, no midline shift. Normal CT scan of the brain without IV contrast. 2. CT scans are insensitive for detecting small CVAs in the first 24 hours after onset. Evaluation of the brain stem is also limited. If symptoms persist, consider MRI scan of the brain with diffusion imaging. 3. Previous skull fracture with fixation. Hyperostosis frontalis interna is commonly seen in middle-aged and elderly females. Electronically signed by: Quintin De Jesus MD 07/06/2017 11:28 AM CDT
[2017-07-06] MEDS: PANTOPRAZOLE SODIUM TAB 40 MG PO SCH (11:50)
[2017-07-06] MEDS ORDERED: CEFEPIME 2 GM VIAL IVPB ONE ×2 (14:13→19:58)
[2017-07-06] MEDS: CEFEPIME 2 GM in SODIUM CHL 0.9% 50ML MIN-BAG+ 50 ML IVPB SCH ×2 (14:33→22:35)
[2017-07-06] MEDS: POLYETHYLENE GLYCOL 3350 17 GM PCKT PO SCH (14:34)
--- NOTE | 2017-07-06 15:39 | PN ---
SUPERVISING PHYSICIAN: Praful Balderrama MD DATE: 07-06-17 SUBJECTIVE: The patient is alert today. She is still having some visual hallucinations and is at time inappropriate with sexual comments to the nurses. She notes that she has had a severe headache and neck pain. She has had no chest pain or nausea or vomiting. She notes that she has not had a normal bowel movement since admission and is requesting some Miralax. OBJECTIVE: VITAL SIGNS: Afebrile with a temperature of 98.2, pulse 65, blood pressure 94/ 65, respirations 20, saturation 99% on room air. I&O shows a positive balance of 705 with 3080 in and 2375 out. Weight 81.1 kilograms. LUNGS clear to auscultation, just diminished towards the bases. HEART is regular rate and rhythm. ABDOMEN: Soft, non-tender with colostomy in place. Bowel sounds are present. EXTREMITIES: No cyanosis, clubbing, or edema. She does show a chronic contracture of deformity of bilateral lower extremities. NEUROLOGIC: She is alert today and converses but notes she can see things that are not there but is aware of her environment and her caregivers. LABORATORY: White count down to 9,000, hemoglobin 10.5, hematocrit 32.6, platelet count 224,000. Differential shows to be a very mild left shift. Chemistries today show normal electrolytes and potassium 3.8, BUN 7, creatinine less than 0.04. Blood sugar is between 107 and 159. Calcium 8.4, magnesium 2.0. MICROBIOLOGY: Blood cultures remain negative after three days. Urine culture on the showed a Staphylococcus aureus that was non-methicillin resistant and sensitive to all the Benzylpenicillin. RADIOLOGY: Chest x-ray per radiology interpretation, single-view chest, shows there continues to be a left retrocardiac opacity consistent with likely pneumonia. CT of the head is pending. ASSESSMENT: 1. Urinary tract infection with history of multi-drug resistant infections resulting in sepsis in the past with a current urine culture showing non-MRSA with patient having a chronic indwelling Agustin catheter with cultures being pansensitive with the patient being on Merrem showing good clinical improvement. 2. Left lower lobe pneumonia, likely healthcare acquired, with concerns for early sepsis on Merrem and showing improvement. . 3. Hypotension improved and felt to be secondary to #1 and #2. 4. Apnea, possibly related to excessive pain management, improved. . 5. History of transverse myelitis. 6. History of basilar meningitis. 7. Hypothyroidism. 8. Chronic headaches. 9. Hypomagnesemia. 10. History of cerebrovascular accident. 11. 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 PLAN: Given the patient continues to have significant pain and headache as far as neck pain without any meningeal signs, given the patient's past history we will go ahead and do a CT and followup closely. She will remain on antibiotics given the culture results and the fact that she has improved and with anticipation of going home in the next couple of days will deescalate medications to Cefepime and doxycycline to help cover for any typicals and possible Pseudomonas related to the pneumonia. Will await CT results of the head to further rule out any other complications such as acute meningitis. Until then, continue with antibiotic coverage with anticipation of discharging hopefully tomorrow or the next day. Until discharge, we will continue to monitor and treat appropriately. Once discharged, the patient will need close clinical followup. #[id number] [facility]
[2017-07-06] MEDS: ENOXAPARIN SODIUM 40 MG/0.4 ML SYG SUBCU SCH (21:30)
[2017-07-06] MEDS: VENLAFAXINE XR 75 MG CAP PO SCH (22:34)
[2017-07-06] MEDS: SIMVASTATIN 20 MG TAB PO SCH (22:35)
[2017-07-06] MEDS: DOCUSATE CALCIUM 240 MG CAP PO SCH (22:35)
[2017-07-06] MEDS: traZODone HCL 50 MG TAB PO PRN (22:36)
[2017-07-06] MEDS: SODIUM CHLORIDE 0.9% (FLUSH) 10 ML SYG IV PRN (23:14)
[2017-07-07] MEDS: KCL 20MEQ/D5 1/2NS 1,000 ML IVS PRN (02:58)
[2017-07-07] MEDS ORDERED: SODIUM CHL 0.9% 50ML MIN-BAG+ 50 ML IVPB ONE ×3 (05:39→19:51)
[2017-07-07] MEDS ORDERED: CEFEPIME 2 GM VIAL IVPB ONE ×3 (05:40→19:52)
[2017-07-07] MEDS: CEFEPIME 2 GM in SODIUM CHL 0.9% 50ML MIN-BAG+ 50 ML IVPB SCH ×3 (05:54→22:11)
[2017-07-07] MEDS: LEVOTHYROXINE SODIUM 0.075 MG TAB PO SCH (06:02)
[2017-07-07] MEDS: PANTOPRAZOLE SODIUM TAB 40 MG PO SCH (06:02)
[2017-07-07] MEDS: INSULIN LISPRO 100 UNITS/ML PEN SUBCU SCH ×4 (08:04→20:59)
[2017-07-07] MEDS: POLYETHYLENE GLYCOL 3350 17 GM PCKT PO SCH (09:01)
[2017-07-07] MEDS: FUROSEMIDE 40 MG TAB PO SCH ×2 (09:01→17:07)
[2017-07-07] MEDS: DOXYCYCLINE HYCLATE CAP 100 MG CAP PO SCH ×2 (09:01→20:57)
[2017-07-07] MEDS: POTASSIUM CHLORIDE 10 MEQ TAB PO SCH ×2 (09:01→17:07)
[2017-07-07] MEDS: GABAPENTIN 300 MG CAP PO SCH ×3 (09:01→20:57)
[2017-07-07] MEDS: QUEtiapine FUMARATE 100 MG TAB PO SCH ×2 (09:01→20:57)
[2017-07-07] MEDS: HYDROcodone 5MG/APAP 325MG 1 EA TAB PO PRN ×4 (09:16→23:02)
[2017-07-07] MEDS: MORPHINE SULFATE INJ 10 MG/ML VIAL IV PRN (09:16)
[2017-07-07] MEDS: ACYCLOVIR 200 MG CAP PO SCH ×4 (11:54→22:11)
[2017-07-07] MEDS: NON-FORMULARY MEDICATION 1 EA MIS (Lidocaine 5% Patch [Lidoderm Patch] 1 EA) TOP SCH (12:40)
--- NOTE | 2017-07-07 14:27 | PN ---
SUPERVISING PHYSICIAN: Praful Balderrama MD DATE: 07/07/17 SUBJECTIVE: The patient still continues with some pain to the back of her neck and now on the right side of her face down into the right neck and shoulder area. She notes it is like it is on fire. There is some swelling to the area which she notes is similar to what she has had previous with shingles outbreak. She remains afebrile with stable vital signs. She has had no nausea, vomiting or diarrhea. She has yet to have a good bowel movement. OBJECTIVE: VITAL SIGNS: Temperature 96.4. Pulse 63. Blood pressure 88/61. Respirations 17. Saturation 98% on room air. HEENT: The left side of the neck shows some lymphadenopathy to the sternocleidomastoid area with some mild edema, but no redness or actual rashes. No other areas of rashes or changes are noted on the scalp or face. CHEST: Lungs clear to auscultation, slightly diminished towards the bases. HEART: Regular rate and rhythm. ABDOMEN: Soft, nontender with colostomy bag in place. Stoma site appears clean and healthy. NEUROLOGIC: Alert and oriented times three with no changes in mental status as per note of her caregiver. LABORATORY: White count 4,600, hemoglobin 10, hematocrit 31.4, platelet count 214,000, differential within normal limits. Chemistries show normal electrolytes with potassium 4.2, BUN 8, creatinine less than 0.4. Glucose has been 107 to 150. Calcium 8.3. Review of labs that were done in the Emergency Room on 07/02/17 again show Staphylococcus aureus on culture results, which is not methicillin resistant. MICROBIOLOGY: Blood cultures remain negative after 48 hours. RADIOLOGY: Chest x-ray yesterday per radiologic interpretation of single view showed no significant changes. CT of the head without contrast per radiologic interpretation showed no hemorrhage or mass effects, no midline shift. Normal CT scan of the brain without contrast. Previous skull fracture with fixation noted with hyperostosis frontalis interna, commonly seen in middle-age and elderly females ASSESSMENT: 1. Urinary tract infection with history of multi-drug resistant infections resulting in sepsis in the past with a current urine culture showing non-MRSA with patient having a chronic indwelling Agustin catheter with results showing sensitive to all but benzylpenicillin with the patient improving on meropenem and continuing to show improvement after changing to doxycycline and cefepime. 2. Left sided neck pain, possibly related to early shingles with neuralgia type pain with the patient having a history of previous shingles outbreak to the left side of the face and neck. 3. Left lower lobe pneumonia, likely healthcare acquired, with concerns for early sepsis, having been on meropenem and showing improvement and continuing to be stable with deescalation to cefepime. 4. Hypotension, improved and felt to be secondary to #1 and #2. 5. History of transverse myelitis. 6. History of basilar meningitis. 7. Hypothyroidism. 8. Chronic headaches. 9. Hypomagnesemia, resolved. 10. History of cerebrovascular accident. 11. 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 PLAN: We will start the patient on antiviral with acyclovir 800 mg 5 times a day given for concern for early outbreak of shingles although there are no obvious areas of vesicles or skin changes, just some mild swelling. In effort to assist with pain management to the neck and the area of question, we will utilize Lidoderm patches. She will continue antibiotics with cefepime and doxycycline. Anticipate hopefully being able to discharge tomorrow with close clinical followup and continued antibiotic therapy with a fourth generation cephalosporin and continued doxycycline. Until discharge, we will continue to monitor the patient closely and treat appropriately. #[id number] [facility]
[2017-07-07] MEDS: VENLAFAXINE XR 75 MG CAP PO SCH (20:57)
[2017-07-07] MEDS: SIMVASTATIN 20 MG TAB PO SCH (20:57)
[2017-07-07] MEDS: DOCUSATE CALCIUM 240 MG CAP PO SCH (20:58)
[2017-07-07] MEDS: SODIUM CHLORIDE 0.9% (FLUSH) 10 ML SYG IV SCH (20:58)
[2017-07-07] MEDS: ENOXAPARIN SODIUM 40 MG/0.4 ML SYG SUBCU SCH (20:59)
[2017-07-07] MEDS ORDERED: REMOVE OLD PATCH TOP SCH (21:00)
[2017-07-07] MEDS: BACLOFEN 10 MG TAB PO PRN (21:00)
[2017-07-07] MEDS: traZODone HCL 50 MG TAB PO PRN (21:00)
[2017-07-07] MEDS: SODIUM CHLORIDE 0.9% (FLUSH) 10 ML SYG IV PRN (22:15)
[2017-07-07] MEDS: IV SET AND CAP CHANGE INJ INJ SCH (22:25)
--- NOTE | 2017-07-07 23:25 | PCM.CORE ---
Physician DVT/VTE - Nurse DVT Assessment & Total Each Risk Factor Represents 3 Points: Medical PT with Hx of [place], CHF, Severe infection/sepsis Each Risk Factor Represents 2 Points: Confined to bed >72 hours Each Risk Factor Represents 1 Point: Age 41-60, Medical PT at Bed Rest Each Risk Factor is 1 Point: Varicose Veins/Edema Legs DVT Assessment Score: 8 - 5 or more Very High Risk Treatments: Early Ambulation *, Sequential Compression Device Pharmacological: Enoxaparin 40mg SQ Daily
[2017-07-08] MEDS ORDERED: SODIUM CHL 0.9% 50ML MIN-BAG+ 50 ML IVPB ONE (04:20)
[2017-07-08] MEDS ORDERED: CEFEPIME 2 GM VIAL IVPB ONE (04:21)
[2017-07-08] MEDS: HYDROcodone 5MG/APAP 325MG 1 EA TAB PO PRN ×2 (04:41→08:58)
[2017-07-08] MEDS: CEFEPIME 2 GM in SODIUM CHL 0.9% 50ML MIN-BAG+ 50 ML IVPB SCH (06:12)
[2017-07-08] MEDS: SODIUM CHLORIDE 0.9% (FLUSH) 10 ML SYG IV PRN (06:12)
[2017-07-08] MEDS: ACYCLOVIR 200 MG CAP PO SCH (06:13)
[2017-07-08] MEDS: LEVOTHYROXINE SODIUM 0.075 MG TAB PO SCH (06:13)
[2017-07-08] MEDS: PANTOPRAZOLE SODIUM TAB 40 MG PO SCH (06:14)
[2017-07-08 06:48] VITALS: BP 88/57; TEMP 98
[2017-07-08] MEDS: INSULIN LISPRO 100 UNITS/ML PEN SUBCU SCH (07:50)
[2017-07-08] MEDS: NON-FORMULARY MEDICATION 1 EA MIS (Lidocaine 5% Patch [Lidoderm Patch] 1 EA) TOP SCH (08:20)
[2017-07-08] MEDS: POTASSIUM CHLORIDE 10 MEQ TAB PO SCH (08:30)
[2017-07-08] MEDS: GABAPENTIN 300 MG CAP PO SCH (08:58)
[2017-07-08] MEDS: DOXYCYCLINE HYCLATE CAP 100 MG CAP PO SCH (08:58)
[2017-07-08] MEDS: FUROSEMIDE 40 MG TAB PO SCH (08:58)
[2017-07-08] MEDS: QUEtiapine FUMARATE 100 MG TAB PO SCH (08:58)
[2017-07-08] MEDS: POLYETHYLENE GLYCOL 3350 17 GM PCKT PO SCH (08:59)
[2017-07-08] MEDS: SODIUM CHLORIDE 0.9% (FLUSH) 10 ML SYG IV SCH (08:59)
[2017-07-08 12:36] VITALS: O2SAT 95
--- NOTE | 2017-07-12 21:52 | DS ---
SUPERVISING PHYSICIAN: Praful Balderrama M.D. DISCHARGE DIAGNOSIS: 1. Urinary tract infection with multi-drug resistant infections resulting in some sepsis in the past with final culture results showing non-MRSA with patient having a chronic indwelling Agustin catheter with results showing sensitive to all but benzylpenicillin with the patient showing good improvement on meropenem and continuing to show improvement on doxycycline and cefepime prior to discharge. 2. Left sided neck pain, possibly early shingles with neurological type pain with the patient having a history of previous shingles outbreak to the left side of the face and neck showing good response with Acyclovir and topical treatment with Lidocaine. 3. Left lower lobe pneumonia, likely healthcare acquired, with concerns for early sepsis with the patient being on meropenem and showing improvement and being able to stabilize and deescalate to cefepime prior to discharge. 4. Hypotension, improved and felt to be secondary to #1 and #2. 5. History of transverse myelitis. 6. History of basilar meningitis. 7. Hypothyroidism. 8. Chronic headaches. 9. Hypomagnesemia, resolved with replacement. 10. History of previous cerebrovascular accident. 11. 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 LABORATORY: White count on admission is 4,900, at discharge was 4,600. Hemoglobin and hematocrit were stable at 10.0 and 31.4. On discharge, platelet count was 214,000. Differential showed to be without a left shift. Coagulation studies showed PT 11.2, PTT 39.5. Chemistries initially on admission showing normal electrolytes with BUN 8, creatinine less than 0.04, magnesium was low at 1.6 but normalized after replacement to 2.3. Troponin was less than 0.02. BNP was slightly elevated at 106. TSH was 9.73. On the prior to discharge, the patient's electrolytes were normal. BUN was 8, creatinine less than 0.04, calcium 8.3. MICROBIOLOGY: Blood cultures remained negative after 5 days. RADIOLOGY: Initially in the Emergency Department chest x-ray per radiology interpretation showed left basilar consolidation which may represent atelectasis or aspiration pneumonia. This was followed-up with another chest x- ray on 07/06/17 and per radiology interpretation showed interval extubation and otherwise no significant changes. She also had a CT of the head without contrast and per radiology interpretation there was no hemorrhage or mass effects or midline shift. Normal CT scan of the brain without IV contrast. HOSPITAL COURSE: Ms. Norton was admitted as noted above. She was initiated on treatment with IV antibiotics to include Meropenem. She showed good response to treatment course as well as she was transitioned to doxycycline and Rocephin for underlying treatment of possible atypical pneumonia. She did respond well to treatment and it was felt that on the morning of discharge she was able to continue with outpatient treatment plan. PLAN: Ms. Norton was discharged on 07/08/17 with instructions to have close clinical followup with Dr. Lopez. She was to take her new medications as instructed. She was to resume her home medications as directed. She was to return to the hospital should she have any concerning symptoms or call Dr. Lopez. Diet at discharge was diabetic diet. Activity was bed bound. New prescriptions at discharge included: 1. Valacyclovir 1,000 mg every 8 hours for 5 days. 2. Cefuroxime axetil 500 mg every 12 hours. 3. Doxycycline 100 mg twice daily, #16. Condition on discharge was stable and improved. #[id number] [facility]
== END 2017-07-08 10:30 | disposition home health service (06) | DRG 698 ==
LOC: ER 14:34 → MS 20:12 → OBSVTOIN 20:12
PROVIDERS: ADMIT Nurse Practitioner Acute Care; ATTEND Nurse Practitioner Family
DX: T83.511A Infection and inflammatory reaction due to indwelling urethral catheter, initial encounter (principal); G82.50 Quadriplegia, unspecified; J18.9 Pneumonia, unspecified organism; A41.01 Sepsis due to Methicillin susceptible Staphylococcus aureus; B02.8 Zoster with other complications; Z66 Do not resuscitate; N39.0 Urinary tract infection, site not specified; J45.909 Unspecified asthma, uncomplicated; E11.9 Type 2 diabetes mellitus without complications; B95.61 Methicillin susceptible Staphylococcus aureus infection as the cause of diseases classified elsewhere; I10 Essential (primary) hypertension; F17.200 Nicotine dependence, unspecified, uncomplicated; Y84.6 Urinary catheterization as the cause of abnormal reaction of the patient, or of later complication, without mention of misadventure at the time of the procedure; E03.9 Hypothyroidism, unspecified; R51 Headache; E83.42 Hypomagnesemia; Z88.8 Allergy status to other drugs, medicaments and biological substances; Z74.01 Bed confinement status; Z86.73 Personal history of transient ischemic attack (TIA), and cerebral infarction without residual deficits; Z88.6 Allergy status to analgesic agent; Z88.1 Allergy status to other antibiotic agents; Z93.3 Colostomy status

== ENCOUNTER 2017-07-26 08:12 | Emergency (ER) | payer MEDICARE, OTHER ==
--- NOTE | 2017-07-26 08:31 | ED.PDOC ---
History of Present Illness - General Chief Complaint: Neck Injury/Pain Stated Complaint: head/neck pain,eye pain Time Seen by Provider: 07/26/17 08:25 Source: patient, RN notes reviewed, Vital Signs reviewed Additional Information: 46 YEAR OLD QUADRIPLEGIC SECONDARY TO TRANSVERSE MYELITIS AND LEFT EYE HERPES ZOSTER INFECTION BROUGHT HERE VIA EMS FOR EVALUATION OF PAIN IN THE LEFT EYE AND MATTING NO FEVER AND HER VS ARE STABLE SHE HAS CHRONIC NECK PAIN SHE IS APPARENTLY FROM HER PAST HISTORY PRONE FOR EASY SEPSIS HER EYE EXAM SHE IS BLIND AND THE EYE GLOBE IS CONTRACTED AND THE CONJUNCTIVAL MUCOUSA IS EDEMATOUS AND RED NO PURULANT DRAINAGE AT THIS TIME THE LIDS ARE SLIGHTLY RED NO STEWART ORBITAL CELLULITES NOTED - History of Present Illness Timing/Duration: 24 hours Severity: mild Improving Factors: nothing Allergies/Adverse Reactions: Allergies Aspirin Allergy (Verified 07/02/17 17:56) Azithromycin [From Zithromax] Allergy (Verified 07/02/17 17:56) Benzocaine Allergy (Verified 07/02/17 17:56) Diazepam [From Valium] Allergy (Verified 07/02/17 17:56) Levofloxacin [From Levaquin] Allergy (Verified 07/02/17 17:56) Meperidine [From Demerol HCl] Allergy (Verified 07/02/17 17:56) Nitrofurantoin [From Macrobid] Allergy (Verified 07/02/17 17:56) tape adhesive Allergy (Severe, Uncoded 07/02/17 17:56) Rash severe skin irritation Home Medications: Ambulatory Orders Dexlansoprazole [Dexilant] 60 mg PO BEDTIME 05/02/16 Docusate Calcium 240 mg PO BEDTIME 05/02/16 Furosemide [Lasix] 40 mg PO BID 05/02/16 Gabapentin [Neurontin] 600 mg PO TID 05/02/16 Metformin HCl 500 mg PO BID 05/02/16 QUEtiapine FUMARATE [Seroquel] 100 mg PO BID 05/02/16 Risedronate Sodium [Atelvia] 35 mg PO WKLY 05/02/16 Simvastatin 40 mg PO BEDTIME 05/02/16 Venlafaxine HCl [Effexor Xr] 75 mg PO DAILY 05/02/16 Levothyroxine Sodium [Synthroid] 150 mcg PO 0700 01/01/17 Trazodone HCl 50 - 100 mg PO BEDTIME PRN 01/01/17 Baclofen [Lioresal] 10 mg PO Q12HR PRN 03/21/17 Chlorpheniramine Maleate 4 mg PO DAILY PRN 07/05/17 Potassium Chloride [Potassium Chloride ER] 10 meq PO BID 07/05/17 Venlafaxine HCl [Effexor Xr] 150 mg PO BEDTIME 07/05/17 Lidocaine 5% Patch [Lidoderm Patch] 1 ea TOP DAILY 07/07/17 Cefuroxime Axetil 500 mg PO Q12H #24 tablet 07/08/17 Doxycycline Hyclate [Vibramycin] 100 mg PO BID #16 tablet 07/08/17 Valacyclovir HCl 1,000 mg PO Q8HR #30 tab 07/08/17 Sulfa/Trimeth 800/160 (Ds) Tab [Bactrim DS Tab] 1 ea PO Q12HR #20 tab 07/26/17 Tobramycin (Ophth) [Tobrex] 0.3 % OP Q6HRS #3 oin 07/26/17 Past Medical History (General) - Patient Medical History Hx Seizures: Yes Hx Stroke: Yes Hx Asthma: No Hx of COPD: No Hx Cardiac Disorders: No Hx Congestive Heart Failure: No Hx Pacemaker: No Hx Hypertension: Yes Hx Diabetes: Yes Hx Renal Disease: - Chronic indwelling catheter Hx MRSA: No - Vaccination History Hx Tetanus, Diphtheria Vaccination: Yes Hx Influenza Vaccination: Yes Hx Pneumococcal Vaccination: Yes - Social History Hx Tobacco Use: No Hx Chewing Tobacco Use: No Hx Alcohol Use: No Hx Substance Use: No Hx Substance Use Treatment: No Hx Depression: No Hx Physical Abuse: No Hx Emotional Abuse: No - Female History Patient : No Family Medical History - Family History Father Family History: Unknown Living Status: Still Living Physical Exam - Physical Exam General Appearance: Alert, Comfortable Eye Exam: left normal - SHE HAS SCARED CONTRACTED ORBIT WITH ERYTHEMATOUS CONJUCTIVA NO PURULANT DRAINAGE NOTED NO STEWART ORBITAL CELLULITIS NOTED RIGHT EYE IS NORMAL LEFT EYE IS SEQUELA TO HERPETIC INFECTION SHE HAD YEARS AGO Ears, Nose, Throat: hearing grossly normal, normal ENT inspection, normal pharynx Neck: non-tender, supple, limited range of motion - DUE TO MUSCLE SPASM Respiratory: chest non-tender, lungs clear, normal breath sounds, no respiratory distress Cardiovascular/Chest: normal peripheral pulses, regular rate, rhythm, no edema, no gallop Gastrointestinal/Abdominal: non tender, soft, no organomegaly, no pulsatile mass Extremity: swelling Neurologic: 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 Copy, Patient Portal Self Enrollment Instructions: DI for Neck Pain Referrals: Shane Lopez MD [Primary Care Provider] - 1-2 Weeks Prescriptions: Tobramycin (Ophth) [Tobrex] 0.3 % OP Q6HRS #3 oin Sulfa/Trimeth 800/160 (Ds) Tab [Bactrim DS Tab] 1 ea PO Q12HR #20 tab Home Medications: Ambulatory Orders Dexlansoprazole [Dexilant] 60 mg PO BEDTIME 05/02/16 Docusate Calcium 240 mg PO BEDTIME 05/02/16 Furosemide [Lasix] 40 mg PO BID 05/02/16 Gabapentin [Neurontin] 600 mg PO TID 05/02/16 Metformin HCl 500 mg PO BID 05/02/16 QUEtiapine FUMARATE [Seroquel] 100 mg PO BID 05/02/16 Risedronate Sodium [Atelvia] 35 mg PO WKLY 05/02/16 Simvastatin 40 mg PO BEDTIME 05/02/16 Venlafaxine HCl [Effexor Xr] 75 mg PO DAILY 05/02/16 Levothyroxine Sodium [Synthroid] 150 mcg PO 0700 01/01/17 Trazodone HCl 50 - 100 mg PO BEDTIME PRN 01/01/17 Baclofen [Lioresal] 10 mg PO Q12HR PRN 03/21/17 Chlorpheniramine Maleate 4 mg PO DAILY PRN 07/05/17 Potassium Chloride [Potassium Chloride ER] 10 meq PO BID 07/05/17 Venlafaxine HCl [Effexor Xr] 150 mg PO BEDTIME 07/05/17 Lidocaine 5% Patch [Lidoderm Patch] 1 ea TOP DAILY 07/07/17 Cefuroxime Axetil 500 mg PO Q12H #24 tablet 07/08/17 Doxycycline Hyclate [Vibramycin] 100 mg PO BID #16 tablet 07/08/17 Valacyclovir HCl 1,000 mg PO Q8HR #30 tab 07/08/17 Sulfa/Trimeth 800/160 (Ds) Tab [Bactrim DS Tab] 1 ea PO Q12HR #20 tab 07/26/17 Tobramycin (Ophth) [Tobrex] 0.3 % OP Q6HRS #3 oin 07/26/17
[2017-07-26 08:44] VITALS: TEMP 97.3
[2017-07-26] MEDS ORDERED: fentaNYL CITRATE INJ 50 MCG/ML AMP IM ONE (10:25)
[2017-07-26 11:15] VITALS: BP 94/81; O2SAT 97
== END 2017-07-26 11:20 | disposition home or self-care (01) ==
LOC: ER 08:12
DX: H10.32 Unspecified acute conjunctivitis, left eye (principal); N39.0 Urinary tract infection, site not specified; G82.50 Quadriplegia, unspecified; G89.29 Other chronic pain; M54.2 Cervicalgia; H54.7 Unspecified visual loss; E11.9 Type 2 diabetes mellitus without complications; I10 Essential (primary) hypertension; Z86.73 Personal history of transient ischemic attack (TIA), and cerebral infarction without residual deficits; Z86.61 Personal history of infections of the central nervous system
CPT/HCPCS: 36415; 80053; 81001; 85025; 87070; 87086; J3010

== ENCOUNTER → 2017-07-29 | Outpatient (CLI) | payer MEDICARE, OTHER | LOC: GMAB 17:40 | PROVIDERS: ATTEND Family Medicine | DX: R51 Headache (principal) ==

== ENCOUNTER → 2017-08-05 | Outpatient (CLI) | payer MEDICARE, OTHER ==
--- NOTE | 2017-08-07 03:18 | MRI ---
EXAM DESCRIPTION: Brain w/oContrast CLINICAL HISTORY: 47 years, Female, HEADACHE COMPARISON: Head CT July 06, 2017 TECHNIQUE: Multiplanar multi sequence images of the brain were obtained without gadolinium contrast. FINDINGS: There is no diffusion restriction. Midline structures, including the corpus callosum, pituitary and brainstem, are unremarkable. The ventricles are of normal size and configuration. The internal auditory canals and cerebellopontine angles are unremarkable. No extra-axial fluid collections. Physiologic vascular flow voids are noted. No posterior fossa lesion. The basal ganglia are unremarkable. There are small areas of increased T2/FLAIR signal involving subcortical white matter in the frontal lobes bilaterally, nonspecific but possibly related to prior surgery or other remote insult. A right frontal lobe craniotomy defect is better seen on previous CT. No additional calvarial lesion. The left globe is abnormal which may be related to a prosthetic globe or remote injury. No intraorbital inflammation or mass. Visualized paranasal sinuses are unremarkable. IMPRESSION: Postoperative changes, but no infarct, mass or hydrocephalus or other intracranial abnormality to explain patient symptoms. Electronically signed by: Vitor Lorenzo MD 08/06/2017 11:13 AM CDT
--- NOTE | 2017-08-07 03:18 | MRI ---
EXAM DESCRIPTION: Cervical Spine CLINICAL HISTORY: 47 years, Female, CERVICALGIA chronic pain, more severe last 6 months, history of spinal meningitis, history of stroke, history of spinal stent and transverse myelitis COMPARISON: June 02, 2011 TECHNIQUE: Multiplanar multi sequence images of the cervical spine were obtained without gadolinium contrast. FINDINGS: Vertebral body height and alignment are well maintained.There is no bone marrow edema. Alignment of the craniocervical junction is anatomic. There is an elongated lobular fluid signal structure in the central canal extending from C1 inferiorly to at least T3, unchanged from June 02, 2011. There is smooth tapering of the cervical cord posterior to the lesion at the C2 and C3 levels with no definite visualized normal cord from C4 through T3. The appearance of the several thoracic cord at the involved levels is also unchanged from May,. [The paraspinal soft tissues are unremarkable.] At C2-3, bilateral facet joint degeneration is noted without significant posterior disc bulging. No significant central canal or neuroforaminal stenosis. At C3-4, there is broad-based posterior left paracentral and left foraminal disc bulging measuring 14 mm transverse by 7 mm AP. Mild bilateral facet joint degeneration is also noted, and findings result in moderately advanced to severe bilateral neuroforaminal stenosis, worse on the left side, with moderately advanced central canal stenosis. At C4-5, bilateral facet and vertebral joint operative again noted resulting in advanced bilateral neuroforaminal stenosis. Broad-based right foraminal disc bulging contributes to severe right-sided neuroforaminal stenosis. No central canal stenosis. At C5-6, there is no significant disc bulging. Right-sided facet joint hypertrophy is noted, all without central canal or significant neuroforaminal stenosis. At C6-7, the intervertebral disc and facet joints are well-maintained. At C7-T1, there is no disc bulging or facet joint degeneration. IMPRESSION: Elongated fluid signal lesion in the central canal extending from C2 inferiorly through at least the T3 level resulting in cord compression, unchanged from May,. 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 Disc bulging, facet and/or uncovertebral joint hypertrophy at C3-4 and C4-5 resulting in severe bilateral neuroforaminal stenosis at both levels and moderately advanced central canal stenosis at C3-4. Less advanced degenerative changes elsewhere in the cervical spine without additional stenosis. Electronically signed by: Vitor Lorenzo MD 08/06/2017 11:28 AM CDT
== END ==
LOC: MRI 10:39
PROVIDERS: ATTEND Family Medicine
DX: M50.21 Other cervical disc displacement, high cervical region (principal); R51 Headache; Z98.890 Other specified postprocedural states

== ENCOUNTER → 2017-08-25 | Outpatient (CLI) | payer MEDICARE, MEDICAID | LOC: BFHH 12:03 | PROVIDERS: ATTEND Family Medicine | DX: N39.0 Urinary tract infection, site not specified (principal) ==

== ENCOUNTER 2017-08-27 11:10 | Observation (INO) | payer MEDICARE, OTHER ==
--- NOTE | 2017-08-27 11:46 | RAD ---
EXAM DESCRIPTION: Chest,1 View CLINICAL HISTORY: body aches, quadraplegia COMPARISON: July 06, 2017 FINDINGS: The cardiomediastinal silhouette is unremarkable. There is no airspace consolidation or pleural effusion. The bronchovascular markings are within normal limits, and the lungs are not hyperinflated. There is no pneumothorax or acute fracture. IMPRESSION: Negative exam. Electronically signed by: Vitor Lorenzo MD 08/27/2017 11:45 AM CDT
[2017-08-27] MEDS ORDERED: PIPERACILLIN/TAZOBACTAM 3.375 GM in SODIUM CHLORIDE 0.9% 100ML 100 ML IVPB ONE (12:37)
[2017-08-27] MEDS ORDERED: SODIUM CHLORIDE 0.9% 1000ML 1,000 ML IVS ONE (12:37)
--- NOTE | 2017-08-27 12:46 | ED.PDOC ---
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 She apparently had aseptic meningitis in the past as well as a stroke in the past. The patient started feeling poorly about 2 days ago with a feeling of fullness in her neck and a headache which is her normal first symptoms for when she gets ill. She has a history of multiple recurrent urinary tract infections. Her primary care doctor sent off for a urine culture 2 days ago but the results are still not back. She feels like she is starting to get sick. Shortly she has gotten sick very rapidly in the past. Also historically she has not been able to mount much of a white blood cell count response and she does have a blood pressure that is normally on the low end of normal even when she is not sick. She is alert and oriented and able to give most of her medical history. She is pleasant and cooperative. Timing/Duration: 24 hours Severity: moderate Improving Factors: nothing Worsening Factors: nothing Associated Symptoms: fever/chills, loss of appetite, malaise Allergies/Adverse Reactions: Allergies Aspirin Allergy (Verified 08/27/17 11:48) Azithromycin [From Zithromax] Allergy (Verified 08/27/17 11:48) Benzocaine Allergy (Verified 08/27/17 11:48) Diazepam [From Valium] Allergy (Verified 08/27/17 11:48) Levofloxacin [From Levaquin] Allergy (Verified 08/27/17 11:48) Meperidine [From Demerol HCl] Allergy (Verified 08/27/17 11:48) Nitrofurantoin [From Macrobid] Allergy (Verified 08/27/17 11:48) tape adhesive Allergy (Severe, Uncoded 07/02/17 17:56) Rash severe skin irritation Home Medications: Ambulatory Orders Dexlansoprazole [Dexilant] 60 mg PO BEDTIME 05/02/16 Docusate Calcium 240 mg PO BEDTIME 05/02/16 Furosemide [Lasix] 40 mg PO BID 05/02/16 Gabapentin [Neurontin] 600 mg PO BID 05/02/16 Metformin HCl 500 mg PO BID 05/02/16 QUEtiapine FUMARATE [Seroquel] 100 mg PO BID 05/02/16 Risedronate Sodium [Atelvia] 35 mg PO WKLY 05/02/16 Simvastatin 40 mg PO BEDTIME 05/02/16 Venlafaxine HCl [Effexor Xr] 75 mg PO DAILY 05/02/16 Levothyroxine Sodium [Synthroid] 150 mcg PO 0700 01/01/17 Trazodone HCl 50 - 100 mg PO BEDTIME PRN 01/01/17 Baclofen [Lioresal] 10 mg PO Q12HR PRN 03/21/17 Chlorpheniramine Maleate 4 mg PO DAILY PRN 07/05/17 Potassium Chloride [Potassium Chloride ER] 10 meq PO BID 07/05/17 Venlafaxine HCl [Effexor Xr] 150 mg PO BEDTIME 07/05/17 Lidocaine 5% Patch [Lidoderm Patch] 1 ea TOP DAILY 07/07/17 Valacyclovir HCl 1,000 mg PO Q8HR #30 tab 07/08/17 Tobramycin (Ophth) [Tobrex] 0.3 % OP Q6HRS #3 oin 07/26/17 Review of Systems - Review of Systems Constitutional: States: malaise EENTM: States: no symptoms reported Respiratory: States: no symptoms reported Cardiology: States: no symptoms reported Gastrointestinal/Abdominal: States: no symptoms reported Genitourinary: States: no symptoms reported Musculoskeletal: States: neck pain Skin: States: no symptoms reported Neurological: States: headache Endocrine: States: no symptoms reported All other Systems: No Change from Baseline Past Medical History (General) - Patient Medical History Hx Seizures: Yes Hx Stroke: Yes Hx Asthma: No Hx of COPD: No Hx Cardiac Disorders: No Hx Congestive Heart Failure: No Hx Pacemaker: No Hx Hypertension: Yes Hx Diabetes: Yes Hx Renal Disease: - Chronic indwelling catheter Hx MRSA: No Surgical History: other - Vaccination History Hx Tetanus, Diphtheria Vaccination: Yes Hx Influenza Vaccination: Yes Hx Pneumococcal Vaccination: Yes - Social History Hx Tobacco Use: No Hx Chewing Tobacco Use: No Hx Alcohol Use: No Hx Substance Use: No Hx Substance Use Treatment: No Hx Depression: No Hx Physical Abuse: No Hx Emotional Abuse: No - Female History Patient : No Family Medical History - Family History Father Family History: Unknown Living Status: Still Living Physical Exam - Physical Exam General Appearance: Alert, No apparent distress Eye Exam: right normal, left other - hronic changes Ears, Nose, Throat: hearing grossly normal, normal ENT inspection Neck: non-tender, supple Respiratory: lungs clear, normal breath sounds, no respiratory distress, no accessory muscle use Cardiovascular/Chest: normal peripheral pulses, regular rate, rhythm, no edema Peripheral Pulses: radial,right: 2+, radial,left: 2+, dorsalis pedis,right: 2+, dorsalis pedis,left: 2+ Gastrointestinal/Abdominal: non tender - previous surgery sites are noted. Pain pump is noted., soft Rectal Exam: deferred - the patient does have a diaper in place. Agustin catheter is in place. Mild posterior erythema. Back Exam: no CVA tenderness, no vertebral tenderness Extremity: non-tender, other - the patient has 2+ to 3+ pedal edema. She is a quadriplegic. She does have some mild long-standing contractures of her digits. She also has some abrasions on the dorsum of her feet likely from pressure from blankets and sheets. Neurologic: alert, normal mood/affect, oriented x 3 Skin Exam: normal color - with the exception of the abrasions of the toes and the mild posterior erythema Comments: Vital Signs - 24 hr 08/27/17 08/27/17 11:11 12:10 Temperature 96.4 F L Pulse Rate [ 76 70 Left Radial] Respiratory 18 16 Rate Blood Pressure 92/46 106/70 [Right Arm] O2 Sat by Pulse 98 97 Oximetry Progress - Progress Progress: 08/27/17 12:48 the patient's 47-year-old female presenting to the emergency room with a significant recurrent urinary catheter associated urinary tract infection with what is likely the start of sepsis. The patient is being started on Zosyn based on previous culture results. The patient had a urine culture performed 2 days ago, so hopefully we will have urine culture results back later today or tomorrow to further guide treatment. A new urine culture is being done as well as a blood culture. She is receiving a small IV fluid bolus for now. The patient will require some localized wound care for her toes. Additionally she may benefit from periodic Erasmo wrapping to help remove excess edema to the feet in order to prevent further skin breakdown. She will need to have her Agustin catheter changed at some point during this treatment course. Consideration could be given to double coverage with linezolid given the likelihood that there is likely [id number] and possibly more than one pathogen in the urinary tract infection. Admitted for further care and monitoring. - Results/Orders Results/Orders: urine culture and blood culture pending. Laboratory Results - last 24 hr 08/27/17 08/27/17 08/27/17 11:58 12:02 12:02 WBC 7.9 RBC 4.02 L Hgb 10.5 L Hct 32.4 L MCV 80.8 L MCH 26.1 L MCHC 32.3 L RDW 20.0 H Plt Count 229 MPV 10.0 Absolute Neuts (auto) 5.80 Absolute Lymphs (auto) 1.20 Absolute Monos (auto) 0.50 Absolute Eos (auto) 0.40 Absolute Basos (auto) 0.10 Neutrophils % 72.7 Lymphocytes % 15.1 L Monocytes % 6.3 Eosinophils % 4.8 Basophils % 1.1 Sodium 141 Potassium 3.4 L Chloride 102 Carbon Dioxide 29 Anion Gap 13.4 BUN 10 Creatinine < 0.40 L BUN/Creatinine Ratio 25.0 H Random Glucose 113 H Serum Osmolality 281.1 Lactic Acid Calcium 8.6 Magnesium 1.7 L Total Bilirubin 0.4 AST 29 ALT 33 Alkaline Phosphatase 88 Serum Total Protein 7.2 Albumin 4.0 Globulin 3.2 Albumin/Globulin Ratio 1.3 Urine Color Green H Urine Appearance Turbid Urine pH 7.0 Ur Specific [place] 1.020 Urine Protein 100 H Urine Glucose (UA) Negative Urine Ketones Negative Urine Blood Moderate H Urine Nitrite Positive H Urine Bilirubin Negative Urine Urobilinogen 0.2 Ur Leukocyte Esterase Large H Urine RBC Obscured by wbc's H Urine WBC Tntc H Ur Epithelial Cells Obscured by wbc's Urine Bacteria 4+ H 08/27/17 12:02 WBC RBC Hgb Hct MCV MCH MCHC RDW Plt Count MPV Absolute Neuts (auto) Absolute Lymphs (auto) Absolute Monos (auto) Absolute Eos (auto) Absolute Basos (auto) Neutrophils % Lymphocytes % Monocytes % Eosinophils % Basophils % Sodium Potassium Chloride Carbon Dioxide Anion Gap BUN Creatinine BUN/Creatinine Ratio Random Glucose Serum Osmolality Lactic Acid 2.3 H Calcium Magnesium Total Bilirubin AST ALT Alkaline Phosphatase Serum Total Protein Albumin Globulin Albumin/Globulin Ratio Urine Color Urine Appearance Urine pH Ur Specific [place] Urine Protein Urine Glucose (UA) Urine Ketones Urine Blood Urine Nitrite Urine Bilirubin Urine Urobilinogen Ur Leukocyte Esterase Urine RBC Urine WBC Ur Epithelial Cells Urine Bacteria hest x-ray shows no evidence of any acute infiltrates. No pneumothorax. No fluid overload. Departure - Departure Clinical Impression: Septicemia Catheter-associated urinary tract infection Qualifiers: Indwelling urinary catheter type: indwelling urethral catheter Encounter type: initial encounter Qualified Code(s): T83.511A - Infection and inflammatory reaction due to indwelling urethral catheter, initial encounter; N39.0 - Urinary tract infection, site not specified Disposition: Admit Patient Referrals: Shane Lopez MD [Primary Care Provider] - 1-2 Weeks Home Medications: Ambulatory Orders Dexlansoprazole [Dexilant] 60 mg PO BEDTIME 05/02/16 Docusate Calcium 240 mg PO BEDTIME 05/02/16 Furosemide [Lasix] 40 mg PO BID 05/02/16 Gabapentin [Neurontin] 600 mg PO BID 05/02/16 Metformin HCl 500 mg PO BID 05/02/16 QUEtiapine FUMARATE [Seroquel] 100 mg PO BID 05/02/16 Risedronate Sodium [Atelvia] 35 mg PO WKLY 05/02/16 Simvastatin 40 mg PO BEDTIME 05/02/16 Venlafaxine HCl [Effexor Xr] 75 mg PO DAILY 05/02/16 Levothyroxine Sodium [Synthroid] 150 mcg PO 0700 01/01/17 Trazodone HCl 50 - 100 mg PO BEDTIME PRN 01/01/17 Baclofen [Lioresal] 10 mg PO Q12HR PRN 03/21/17 Chlorpheniramine Maleate 4 mg PO DAILY PRN 07/05/17 Potassium Chloride [Potassium Chloride ER] 10 meq PO BID 07/05/17 Venlafaxine HCl [Effexor Xr] 150 mg PO BEDTIME 07/05/17 Lidocaine 5% Patch [Lidoderm Patch] 1 ea TOP DAILY 07/07/17 Valacyclovir HCl 1,000 mg PO Q8HR #30 tab 07/08/17 Tobramycin (Ophth) [Tobrex] 0.3 % OP Q6HRS #3 oin 07/26/17 Decision To Admit - Decistion To Admit Decision to Admit Reason: Medical Nature Decision to Admit Date: 08/27/17 Decision to Admit Time: 12:52
[2017-08-27] MEDS ORDERED: PIPERACILLIN/TAZOBACTAM 3.375 GM VIAL IVPB ONE (12:53)
[2017-08-27] MEDS ORDERED: SODIUM CHLORIDE 0.9% 100ML 100 ML IVPB ONE (12:53)
--- NOTE | 2017-08-27 13:25 | HP ---
SUPERVISING PHYSICIAN: Sonu Newman M.D. CHIEF COMPLAINT: Urinary tract infection. 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 She has also had a stroke as well as aseptic meningitis. She started feeling poorly over the weekend but she had no pain. She has a history of frequent urinary tract infections and she does have an indwelling catheter. She noticed on Thursday that her urine was dark and had a bluish tint to it, but again she felt no pain. On Thursday, she started having neck pain as well as headaches. Those are usually her symptoms that she has a urinary tract infection. She called her primary care physician, Dr. Lopez's office on the and her home health did a UA at that time. It did show a significant urinary tract infection and today she was told to come into the Emergency Room. She was given some fluids. Her labs showed a WBC of 7.9, hemoglobin 10.5, hematocrit 32.4. Lactic acid was 2.3, potassium 3.4, magnesium 1.7. The rest of her metabolic panel was within normal limits. Again , her urine showed a UTI with urinalysis results that the urine color was green , urine protein was 100, a moderate amount of urine blood, positive for urine nitrites, large urine leukocyte esterase. Urine WBCs were too numerous to count. Urine RBCs were obscured by WBCs and 4+ urine bacteria. Chest x-ray was also done and showed no acute abnormalities. Blood cultures were drawn and she was started on Zosyn. I was called for hospital admission. PAST MEDICAL HISTORY: 1. Diabetes mellitus type 2. 2. Transverse myelitis. 3. Hypothyroidism. 4. Cerebrovascular accident. 5. Aseptic meningitis. 6. Chronic spasticity quadriparesis. 7. 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 8. Chronic headaches. PAST SURGICAL HISTORY: 1. Brain biopsy. 2. Facial nerve decompression. 3. Left eye surgery with resulting prosthesis. 4. Placement of intrathecal Baclofen pump. 5. Colostomy. CURRENT MEDICATIONS: Per the EMR and awaiting verification. ALLERGIES: ASPIRIN, AZITHROMYCIN, DIAZEPAM, LEVOFLOXACIN, MEPERIDINE AND ADHESIVE TAPE. FAMILY HISTORY: SOCIAL HISTORY: She is single. She is disabled. She lives with her father and his caregiver. She denies any tobacco, ETOH or illicit drug use. REVIEW OF SYSTEMS: Negative for fatigue, fever or weight changes. HEENT: Negative for sinus symptoms, ear pain, vision changes or sore throat. RESPIRATORY: Negative for coughing, wheezing or shortness of breath. CARDIAC: Negative for chest pain, palpitations or tachycardia. GASTROINTESTINAL: Negative for nausea, vomiting, diarrhea or constipation. GENITOURINARY: Negative for nausea, vomiting, diarrhea or constipation. GENITOURINARY: Positive for dark urine as well as foul-smelling urine. SKIN: Positive for some sores on her bilateral great toes as well as some skin breakdown on her buttocks. NEUROLOGIC: Positive for headaches. Negative for seizures or dizziness. PHYSICAL EXAMINATION: VITAL SIGNS: She is afebrile, heart rate 66, blood pressure 92/46, respiratory rate 18, O2 sat is 97% on room air. GENERAL: This is a 47 year-old female patient lying in her hospital bed. She is in no acute distress. HEENT: Normocephalic and atraumatic. Oropharynx is clear. Oral mucous membranes are dry. She has an enucleated left eye. Her right eye is normal. NECK: Supple without mass. CHEST: Diminished breath sounds throughout, otherwise clear to auscultation. There is equal rise and fall of the chest with inspiration and expiration. CARDIOVASCULAR: Regular rate and rhythm. ABDOMEN: Soft, nondistended. Bowel sounds are positive. She has a colostomy as well as a Agustin catheter in place. EXTREMITIES: There is generalized edema to her lower extremities with contracture deformity. She also has 2 areas of skin breakdown on her bilateral great toes. The left great toe has a 2.5 cm laceration that is well approximated and has no drainage or fluctuance. It is slightly erythematous. NEUROLOGIC: She is awake, alert and oriented times three. LABORATORY: Labs and films are as per the history of present illness. Cultures from her urinalysis on 08/25/17 showed positive for Enterobacter cloacae. ASSESSMENT: 1. Urinary tract infection with cultures showing Enterobacter cloacae. There is intermediate sensitivities to Zosyn which she received in the Emergency Room but it is sensitive to Doxycycline. The patient has an indwelling catheter and she also has a history of multidrug resistant urinary tract infections. 2. Lactic acidosis on admission that has normalized after fluids. 3. Bilateral great toe sores that may have been to an accidental trauma when the patient was transferred out of bed, but may have worsened due to her lack of mobility as well as irritation by her bed sheets. 4. Hypomagnesemia. 5. History of transverse myelitis. 6. History of aseptic meningitis. 7. History of chronic headaches. PLAN: We will admit the patient to the hospital. I have discontinued her Zosyn as there is only intermediate sensitivity. I have changed her to IV Doxycycline. I have also restarted her home medications as well as a PPI for ulcer prophylaxis and Lovenox for DVT prophylaxis. I will repeat lab in the morning. Hopefully the patient can be discharged home in the next day or so. Dr. Newman is the collaborating physician available for consultation. #[id number] [facility]ITALBassam
[2017-08-27] MEDS ORDERED: ONDANSETRON INJ 4 MG/2 ML VIAL IV PRN (15:08)
[2017-08-27] MEDS ORDERED: MAGNESIUM SULFATE PREMIX 2GM 2 GM in PREMIX BAG 1 BAG IVPB ONE (15:12)
[2017-08-27] MEDS ORDERED: IV SET AND CAP CHANGE INJ INJ SCH (15:30)
[2017-08-27] MEDS ORDERED: BACLOFEN 10 MG TAB PO PRN (16:07)
[2017-08-27] MEDS ORDERED: MAGNESIUM SULFATE PREMIX 2GM 50 ML IVPB ONE (16:11)
[2017-08-27] MEDS ORDERED: HYDROcodone 5MG/APAP 325MG 1 EA TAB PO PRN (16:13)
[2017-08-27] MEDS: ENOXAPARIN SODIUM 40 MG/0.4 ML SYG SUBCU SCH (16:30)
[2017-08-27] MEDS ORDERED: KCL 20 MEQ/NS 1,000 ML IVS ONE (16:30)
[2017-08-27] MEDS: PANTOPRAZOLE SODIUM IV 40 MG VIAL IV SCH (16:30)
[2017-08-27] MEDS: metFORMIN HCL 500 MG TAB PO SCH (18:08)
[2017-08-27] MEDS: FUROSEMIDE 40 MG TAB PO SCH (18:08)
[2017-08-27] MEDS: POTASSIUM CHLORIDE 10 MEQ TAB PO SCH (18:08)
[2017-08-27] MEDS ORDERED: PIPERACILLIN/TAZOBACTAM 3.375 GM in SODIUM CHLORIDE 0.9% 100ML 100 ML IVPB SCH (20:00)
[2017-08-27] MEDS ORDERED: SODIUM CHLORIDE 0.9% 250ML 250 ML ONE (20:10)
[2017-08-27] MEDS ORDERED: DOXYCYCLINE HYCLATE IV 100 MG VIAL IVPB ONE (20:12)
[2017-08-27] MEDS: DOXYCYCLINE HYCLATE IV 100 MG in SODIUM CHLORIDE 0.9% 250ML 250 ML IVPB SCH (20:53)
[2017-08-27] MEDS: QUEtiapine FUMARATE 100 MG TAB PO SCH (20:58)
[2017-08-27] MEDS: GABAPENTIN 300 MG CAP PO SCH (20:58)
[2017-08-27] MEDS: valACYclovir 500 MG TAB PO SCH (20:59)
[2017-08-27] MEDS: SIMVASTATIN 20 MG TAB PO SCH (20:59)
[2017-08-27] MEDS: DOCUSATE CALCIUM 240 MG CAP PO SCH (20:59)
[2017-08-27] MEDS: TOBRAMYCIN 0.3% OP SCH (21:00)
[2017-08-27] MEDS: traZODone HCL 50 MG TAB PO PRN (21:01)
[2017-08-27] MEDS ORDERED: HYDROcodone 5MG/APAP 325MG 1 EA TAB ONE (21:24)
[2017-08-27] MEDS: ACETAMINOPHEN W/COD #3 TAB 1 EA TAB PO PRN ×2 (21:35→23:17)
[2017-08-28] MEDS: MORPHINE SULFATE INJ 10 MG/ML VIAL IV PRN ×4 (02:06→21:48)
[2017-08-28] MEDS: TOBRAMYCIN 0.3% OP SCH ×2 (03:00→08:57)
[2017-08-28] MEDS ORDERED: DOXYCYCLINE HYCLATE IV 100 MG VIAL IVPB ONE (04:53)
[2017-08-28] MEDS ORDERED: SODIUM CHLORIDE 0.9% 250ML 250 ML ONE (04:53)
[2017-08-28] MEDS: ACETAMINOPHEN W/COD #3 TAB 1 EA TAB PO PRN ×2 (04:59→18:28)
[2017-08-28] MEDS: valACYclovir 500 MG TAB PO SCH ×3 (06:09→21:25)
[2017-08-28] MEDS: LEVOTHYROXINE SODIUM 0.075 MG TAB PO SCH (06:16)
[2017-08-28] MEDS: DOXYCYCLINE HYCLATE IV 100 MG in SODIUM CHLORIDE 0.9% 250ML 250 ML IVPB SCH (06:32)
[2017-08-28] MEDS: SODIUM CHLORIDE 0.9% (FLUSH) 10 ML SYG IV PRN ×2 (06:33→21:27)
[2017-08-28] MEDS: metFORMIN HCL 500 MG TAB PO SCH ×2 (07:31→17:18)
[2017-08-28] MEDS: POTASSIUM CHLORIDE 10 MEQ TAB PO SCH ×2 (07:31→17:18)
[2017-08-28] MEDS ORDERED: TOBRAMYCIN SULF 0.3 % OPHT SOL 1 DROP ONE (08:51)
[2017-08-28] MEDS: VENLAFAXINE XR 75 MG CAP PO SCH (08:56)
[2017-08-28] MEDS: GABAPENTIN 300 MG CAP PO SCH ×2 (08:56→21:25)
[2017-08-28] MEDS: QUEtiapine FUMARATE 100 MG TAB PO SCH ×2 (08:57→21:26)
[2017-08-28] MEDS: FUROSEMIDE 40 MG TAB PO SCH ×2 (08:57→17:18)
[2017-08-28] MEDS: NON-FORMULARY MEDICATION 1 EA MIS (Lidocaine 5% Patch [Lidoderm Patch] 1 EA) TOP SCH ×2 (08:57→14:35)
[2017-08-28] MEDS: TOBRAMYCIN SULF 0.3 % OPHT SOL 1 DROP BOTH_EYES SCH ×2 (15:25→21:26)
[2017-08-28] MEDS: ENOXAPARIN SODIUM 40 MG/0.4 ML SYG SUBCU SCH (15:34)
[2017-08-28] MEDS: PANTOPRAZOLE SODIUM IV 40 MG VIAL IV SCH (15:35)
--- NOTE | 2017-08-28 16:46 | PN ---
DATE: 08/28/17 SUPERVISING PHYSICIAN: Sonu Newman M.D. SUBJECTIVE: The patient is lying in bed. She is asleep. She awakens easily. She has no complaints of nausea, vomiting, diarrhea, constipation, chest pain or shortness of breath. She continues to state that she has a headache and neck pain, but that the morphine helps well. I explained to her that she would be discharged and could not go home on the morphine. She said her headaches are her usual type of headaches that she has frequently. OBJECTIVE: She is afebrile, heart rate 74, blood pressure 84/57, respiratory rate 18, O2 sat is 95% on room air. RESPIRATORY: Essentially clear to auscultation bilaterally. Somewhat diminished at the bases. CARDIAC: Regular rate and rhythm. GASTROINTESTINAL: Abdomen is soft, nondistended, non-tender. Bowel sounds are positive. She has a colostomy in place. NEUROLOGIC: She is awake, alert and oriented times three. LABORATORY: Her last WBCs are stable at 4.8 with hemoglobin 9.6, hematocrit 30.3. Electrolytes are basically within normal limits. Preliminary blood cultures show no growth at 24 hours. All other labs and films have been reviewed via the EMR. ASSESSMENT: 1. Urinary tract infection with cultures showing Enterobacter cloacae. There is intermediate sensitivities to Zosyn which she received in the Emergency Room but it is sensitive to Doxycycline. The patient has an indwelling catheter and she also has a history of multidrug resistant urinary tract infections. 2. Lactic acidosis on admission that has normalized after fluids. 3. Bilateral great toe sores that may have been to an accidental trauma when the patient was transferred out of bed, but may have worsened due to her lack of mobility as well as irritation by her bed sheets. 4. Hypomagnesemia. 5. History of transverse myelitis. 6. History of aseptic meningitis. 7. History of chronic headaches. PLAN: We will continue present supportive care. She will continue on her Doxycycline. We will change it to p.o. I will repeat her CBC in the morning and hopefully she can be discharged tomorrow with [facility]. We will have [facility] check those sores on her bilateral great toes as those may warrant watching closely. Otherwise we will continue to monitor the patient closely and follow as needed. Dr. Newman is the collaborating physician available for consultation. #[id number] [facility]
[2017-08-28] MEDS: traZODone HCL 50 MG TAB PO PRN (21:26)
[2017-08-28] MEDS: SIMVASTATIN 20 MG TAB PO SCH (21:26)
[2017-08-28] MEDS: DOXYCYCLINE HYCLATE CAP 100 MG CAP PO SCH (21:26)
[2017-08-28] MEDS: DOCUSATE CALCIUM 240 MG CAP PO SCH (21:26)
[2017-08-29] MEDS: TOBRAMYCIN SULF 0.3 % OPHT SOL 1 DROP BOTH_EYES SCH ×2 (03:00→10:02)
[2017-08-29] MEDS: valACYclovir 500 MG TAB PO SCH (05:57)
[2017-08-29] MEDS: LEVOTHYROXINE SODIUM 0.075 MG TAB PO SCH (06:23)
[2017-08-29] MEDS: metFORMIN HCL 500 MG TAB PO SCH (08:24)
[2017-08-29] MEDS: POTASSIUM CHLORIDE 10 MEQ TAB PO SCH (08:24)
[2017-08-29] MEDS: DOXYCYCLINE HYCLATE CAP 100 MG CAP PO SCH (08:25)
[2017-08-29] MEDS: VENLAFAXINE XR 75 MG CAP PO SCH (08:25)
[2017-08-29] MEDS: QUEtiapine FUMARATE 100 MG TAB PO SCH (08:25)
[2017-08-29] MEDS: GABAPENTIN 300 MG CAP PO SCH (08:25)
[2017-08-29] MEDS: FUROSEMIDE 40 MG TAB PO SCH (08:25)
[2017-08-29] MEDS: NON-FORMULARY MEDICATION 1 EA MIS (Lidocaine 5% Patch [Lidoderm Patch] 1 EA) TOP SCH (10:01)
[2017-08-29] MEDS: ACETAMINOPHEN W/COD #3 TAB 1 EA TAB PO PRN (10:39)
--- NOTE | 2017-08-29 14:40 | DS ---
SUPERVISING PHYSICIAN: Sonu Newman MD DISCHARGE DIAGNOSES: 1. Urinary tract infection with cultures showing Enterobacter cloacae. She is presently on doxycycline which according to her culture it is sensitive to doxycycline. The patient has an indwelling catheter that was changed approximately one week ago and she has a history of multidrug resistant urinary tract infections. 2. Lactic acidosis on admission that has normalized after fluids. 3. Bilateral great toe sores that may have been due to an accidental trauma when the patient was transferred out of bed, but may have worsened due to her lack of mobility as well as irritation by her bed sheets. 4. Hypomagnesemia that has normalized. 5. History of transverse myelitis. 6. History of aseptic meningitis. 7. History of chronic headaches. 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 She also had a stroke as well as aseptic meningitis. She lives at home and has sitters as well as home health. She started` feeling poorly over the weekend but had no significant pain. She has a significant history of frequent urinary tract infections and she does have an indwelling catheter and her prior urinary tract infections are usually multidrug resistant. On Thursday her urine was dark, actually blue-green in tint and the following day she started getting headaches as well as pain in her neck and these are usually her symptoms that she has a urinary tract infection. Her home health called Dr. Lopez's office and a urinalysis was obtained. At that time she progressively worsened and came to the Emergency Room. She was given fluids in the Emergency Room. Her lactic acid originally was 2.3. Her other labs showed a WBC of 7.9, hemoglobin 10.5, hematocrit 32.4. Potassium 3.4, magnesium 1.7. Her metabolic panel was within normal limits. She had a urinary tract infection that the urine color was green, urine protein was 100, a moderate amount of urine blood, positive for urine nitrites, large urine leukocyte esterase. Urine WBCs were too numerous to count. Urine RBCs were obscured by WBCs and 4+ urine bacteria. Chest x-ray showed no acute abnormalities. Blood cultures were drawn and she was started on Zosyn. She was then admitted to the hospital. . HOSPITAL COURSE: She was given potassium and magnesium for her electrolytes imbalances. Her preliminary blood cultures showed no growth after 24 hours but her urine culture did grow out Enterobacter cloacae. It had intermediate sensitivities to Zosyn so that discontinued and she was started on doxycycline. Her vital signs remained stable. She was transitioned from IV doxycycline to p.o. doxycycline. She has been afebrile since admission and she will be discharged home today in stable condition. DISCHARGE PLAN: The patient will be discharged home in stable condition. She is to resume her previous medications and care. I will continue with 10 days of doxycycline She will also have [facility]. The sores on her toes need to be monitored closely as they both may need wound are. I think it would be beneficial to make sure the sheets are not touching her feet to cause abrasion or shearing. She is to followup with Dr. Lopez within the next 1 to 2 weeks and return to the hospital or call Dr. Lopez's office for any further problems or complications. DISCHARGE MEDICATIONS: 1. Metformin. 2. Docusate calcium. 3. Effexor. 4. Atelvia. 5. Lasix. 6. Simvastatin. 7. Dexilant. 8. Seroquel. 9. Gabapentin. 10. Levothyroxine. 11. Trazodone. 12. Baclofen. 13. Chlorpheniramine. 14. Potassium chloride.c 15. Lidocaine patch. 16. Valacyclovir. .17. Tobrex ophthalmic .18. Tylenol with codeine. 19. Doxycycline. Dr. Newman is the collaborating physician available for consultation, #[id number] [facility]
[2017-08-29 14:47] VITALS: BP 91/54; TEMP 97.1; O2SAT 96
[2017-09-03] MEDS ORDERED: RISEDRONATE SODIUM 35 MG PO SCH (09:00)
== END 2017-08-29 13:45 | disposition home health service (06) ==
LOC: ER 11:10 → MS 13:25 → INTOOBSV 13:25
PROVIDERS: ADMIT Nurse Practitioner Acute Care; ATTEND Nurse Practitioner Acute Care
DX: N39.0 Urinary tract infection, site not specified (principal); B96.89 Other specified bacterial agents as the cause of diseases classified elsewhere; E87.2 Acidosis; L97.529 Non-pressure chronic ulcer of other part of left foot with unspecified severity; L97.519 Non-pressure chronic ulcer of other part of right foot with unspecified severity; E83.42 Hypomagnesemia; G82.50 Quadriplegia, unspecified; E11.9 Type 2 diabetes mellitus without complications; E03.9 Hypothyroidism, unspecified; R51 Headache; Z79.84 Long term (current) use of oral hypoglycemic drugs; Z79.899 Other long term (current) drug therapy; Z93.3 Colostomy status; Z96.0 Presence of urogenital implants; Z86.73 Personal history of transient ischemic attack (TIA), and cerebral infarction without residual deficits; Z88.3 Allergy status to other anti-infective agents; Z88.6 Allergy status to analgesic agent; Z88.8 Allergy status to other drugs, medicaments and biological substances; Z91.048 Other nonmedicinal substance allergy status
CPT/HCPCS: 96367; 96372 ×2; 96375 ×2; 96376; J2270 ×4; J2543; J7030; J7050 ×3; J1650 ×2; J3475; J3480; 80053 ×2; 87086; 36415 ×4; 81001; 85025 ×3; 87040 ×2; 83735 ×2; 84443; 87186; 83605 ×2; 87088; 71045; 94760 ×12; 99285; G0378; 96365

== ENCOUNTER 2017-09-16 08:10 | Emergency (ER) | payer MEDICARE, MEDICAID ==
--- NOTE | 2017-09-16 09:15 | RAD ---
EXAM DESCRIPTION: Chest,1 View CLINICAL HISTORY: 47 years Female, myalgias in quadraplegic COMPARISON: Previous study August 27, 2017 TECHNIQUE: AP portable chest. FINDINGS: Heart size is normal with normal pulmonary vascularity. Discoid atelectasis is seen in the left lung base. Otherwise no consolidating infiltrate. Tubing overlying the upper trachea is present which is unchanged compared to the previous study. Clinical correlation recommended. No pulmonary mass or worrisome nodule. No pneumothorax or pleural effusion. Bones are unremarkable. IMPRESSION: Minimal discoid atelectasis in the medial left lung base. Electronically signed by: Domingo Win MD 09/16/2017 9:14 AM CDT
[2017-09-16] MEDS ORDERED: CIPROFLOXACIN 500 MG TAB PO ONE (10:27)
[2017-09-16] MEDS ORDERED: FLUCONAZOLE 100 MG TAB PO ONE (10:27)
--- NOTE | 2017-09-16 10:41 | ED.PDOC ---
History of Present Illness - General Chief Complaint: Neck Injury/Pain Stated Complaint: Neck discomfort Time Seen by Provider: 09/16/17 08:15 Source: patient Exam Limitations: no limitations - History of Present Illness Initial Comments: the patient is a 47-year-old female presenting to the emergency room secondary to a recurrence of some neck pain and headache. The patient is a quadriplegic. Normally when this happens to her she is starting to get sick. Her most frequent infection site is a urinary tract action from indwelling catheter. She has not had any fevers. No altered mental status. No syncope or near syncope. Vital signs have been stable. No other more specific symptoms. Again the symptoms occur at a very high frequency with sometimes they're being a background infection in her body and sometimes not.the patient has apparently not been taking her doxycycline as prescribed for her previous urinary tract infection as she should've completed this 6 or 7 days ago but has still not completed her antibiotic course. Timing/Duration: unsure Severity: mild Improving Factors: nothing Worsening Factors: nothing Associated Symptoms: headaches Allergies/Adverse Reactions: Allergies Aspirin Allergy (Verified 08/27/17 11:48) Azithromycin [From Zithromax] Allergy (Verified 08/27/17 11:48) Benzocaine Allergy (Verified 08/27/17 11:48) Diazepam [From Valium] Allergy (Verified 08/27/17 11:48) Levofloxacin [From Levaquin] Allergy (Verified 08/27/17 11:48) Meperidine [From Demerol HCl] Allergy (Verified 08/27/17 11:48) Nitrofurantoin [From Macrobid] Allergy (Verified 08/27/17 11:48) tape adhesive Allergy (Severe, Uncoded 07/02/17 17:56) Rash severe skin irritation Home Medications: Ambulatory Orders Dexlansoprazole [Dexilant] 60 mg PO BEDTIME 05/02/16 Docusate Calcium 240 mg PO BEDTIME 05/02/16 Furosemide [Lasix] 40 mg PO BID 05/02/16 Gabapentin [Neurontin] 600 mg PO BID 05/02/16 Metformin HCl 500 mg PO BID 05/02/16 QUEtiapine FUMARATE [Seroquel] 100 mg PO BID 05/02/16 Risedronate Sodium [Atelvia] 35 mg PO WKLY 05/02/16 Simvastatin 40 mg PO BEDTIME 05/02/16 Venlafaxine HCl [Effexor Xr] 75 mg PO DAILY 05/02/16 Levothyroxine Sodium [Synthroid] 150 mcg PO 0700 01/01/17 Trazodone HCl 50 - 100 mg PO BEDTIME PRN 01/01/17 Baclofen [Lioresal] 10 mg PO Q12HR PRN 03/21/17 Chlorpheniramine Maleate 4 mg PO DAILY PRN 07/05/17 Potassium Chloride [Potassium Chloride ER] 10 meq PO BID 07/05/17 Venlafaxine HCl [Effexor Xr] 150 mg PO BEDTIME 07/05/17 Lidocaine 5% Patch [Lidoderm Patch] 1 ea TOP DAILY 07/07/17 Valacyclovir HCl 1,000 mg PO Q8HR #30 tab 07/08/17 Tobramycin (Ophth) [Tobrex] 0.3 % OP Q6HRS #3 oin 07/26/17 Tylenol W/ CODEINE #3 1 - 2 08/27/17 Doxycycline Hyclate [Vibramycin] 100 mg PO BID #20 cap 08/29/17 Ciprofloxacin [Cipro] 500 mg PO BID #20 tab 09/16/17 Fluconazole 100 mg PO DAILY #3 tab 09/16/17 Levothyroxine Sodium 200 mcg PO DAILY #30 tab 09/16/17 Magnesium Oxide 400 mg PO BID #30 cap 09/16/17 Review of Systems - Review of Systems Constitutional: States: malaise EENTM: States: no symptoms reported Respiratory: States: no symptoms reported Cardiology: States: no symptoms reported Gastrointestinal/Abdominal: States: no symptoms reported Genitourinary: States: no symptoms reported Musculoskeletal: States: neck pain Skin: States: no symptoms reported Neurological: States: headache - mild Endocrine: States: no symptoms reported All other Systems: No Change from Baseline Past Medical History (General) - Patient Medical History Hx Seizures: Yes Hx Stroke: Yes Hx Asthma: No Hx of COPD: No Hx Cardiac Disorders: No Hx Congestive Heart Failure: No Hx Pacemaker: No Hx Hypertension: Yes Hx Diabetes: Yes Hx Renal Disease: - Chronic indwelling catheter Hx MRSA: No - Vaccination History Hx Tetanus, Diphtheria Vaccination: Yes Hx Influenza Vaccination: Yes Hx Pneumococcal Vaccination: Yes - Social History Hx Tobacco Use: No Hx Chewing Tobacco Use: No Hx Alcohol Use: No Hx Substance Use: No Hx Substance Use Treatment: No Hx Depression: No Hx Physical Abuse: No Hx Emotional Abuse: No - Female History Patient is a Female of Child Bearing Age (10 -59 yrs old): Yes Patient : No Family Medical History - Family History Father Family History: No Known Living Status: Still Living Physical Exam - Physical Exam General Appearance: Alert, Comfortable, No apparent distress Eye Exam: bilateral normal Ears, Nose, Throat: hearing grossly normal, normal ENT inspection, normal pharynx Neck: supple, other - she does have some mild discomfort to palpation of the posterior paracervical spinal muscles. No deformity. No evidence of any abscess. No cellulitis. 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 No evidence of superimposed cellulitis. Comments: Vital Signs - 24 hr 09/16/17 09/16/17 08:16 09:15 Temperature 96.8 F L Pulse Rate [ 71 74 Left Radial] Respiratory 20 20 Rate Blood Pressure 111/78 108/72 [Left Arm] O2 Sat by Pulse 98 99 Oximetry Progress - Progress Progress: 09/16/17 10:43 the patient is a 47-year-old female presenting to the emergency room secondary to recurrence of her neck pain and headache. Most likely source triggering this is a recurrence of her urinary tract infection. Based on previous culture the doxycycline is going to be discontinued and the patient is going to be switched over to ciprofloxacin which she states that she can take without any difficulty. Additionally there is a large amount of budding yeast in her urine so she is going to be placed on Diflucan for the next 3 days. The patient's magnesium is mildly low which may be contributing some muscle spasm. She is going to be placed on magnesium oxide 400 mg twice daily for the next 2 weeks. This level will need to be rechecked. Additionally she does have some significant hypothyroidism with a TSH of 22 today. We are going to increase her Synthroid to 200 g daily. This does need to be rechecked with an additional full thyroid panel in a couple of weeks to make sure it is improving. She does need to increase her fluid intake for the next couple of days and I would also recommend holding the Lasix for the next 2 days. ER warnings were given for any significant worsening. Continue localized wound care for the toes. - Results/Orders Results/Orders: chest x-ray shows very mild discoid atelectasis. Laboratory Tests 09/16/17 09/16/17 09/16/17 08:56 08:56 08:56 WBC 7.4 RBC 4.18 L Hgb 10.7 L Hct 34.3 L MCV 82.0 MCH 25.5 L MCHC 31.3 L RDW 20.6 H Plt Count 193 MPV 10.1 Absolute Neuts (auto) 5.00 Absolute Lymphs (auto) 1.40 Absolute Monos (auto) 0.70 Absolute Eos (auto) 0.30 Absolute Basos (auto) 0.10 Neutrophils % 68.2 Lymphocytes % 18.5 L Monocytes % 8.9 Eosinophils % 3.4 Basophils % 1.0 Sodium 140 Potassium 4.0 Chloride 101 Carbon Dioxide 30 Anion Gap 13.0 BUN 10 Creatinine < 0.40 L BUN/Creatinine Ratio 25.0 H Random Glucose 106 H Serum Osmolality 278.9 Lactic Acid 1.7 Calcium 8.8 Magnesium 1.5 L Total Bilirubin 0.4 AST 32 ALT 31 Alkaline Phosphatase 88 Creatine Kinase 41 CK-MB (CK-2) 3.0 CK-MB (CK-2) % Not Reportable Troponin I < 0.02 Serum Total Protein 6.6 Albumin 3.7 Globulin 2.9 Albumin/Globulin Ratio 1.3 TSH 22.26 H Urine Color Urine Appearance Urine pH Ur Specific [place] Urine Protein Urine Glucose (UA) Urine Ketones Urine Blood Urine Nitrite Urine Bilirubin Urine Urobilinogen Ur Leukocyte Esterase Urine RBC Urine WBC Ur Epithelial Cells Calcium Oxalate Crystal Urine Bacteria Urine Yeast 09/16/17 09:32 WBC RBC Hgb Hct MCV MCH MCHC RDW Plt Count MPV Absolute Neuts (auto) Absolute Lymphs (auto) Absolute Monos (auto) Absolute Eos (auto) Absolute Basos (auto) Neutrophils % Lymphocytes % Monocytes % Eosinophils % Basophils % Sodium Potassium Chloride Carbon Dioxide Anion Gap BUN Creatinine BUN/Creatinine Ratio Random Glucose Serum Osmolality Lactic Acid Calcium Magnesium Total Bilirubin AST ALT Alkaline Phosphatase Creatine Kinase CK-MB (CK-2) CK-MB (CK-2) % Troponin I Serum Total Protein Albumin Globulin Albumin/Globulin Ratio TSH Urine Color Yellow Urine Appearance Sl cloudy Urine pH 7.0 Ur Specific [place] 1.025 Urine Protein 100 H Urine Glucose (UA) Negative Urine Ketones Trace Urine Blood Moderate H Urine Nitrite Positive H Urine Bilirubin Negative Urine Urobilinogen 0.2 Ur Leukocyte Esterase Small H Urine RBC 10-20 H Urine WBC 10-20 H Ur Epithelial Cells 5-10 Calcium Oxalate Crystal 1+ Urine Bacteria 2+ H Urine Yeast 4+ budding H Departure - Departure Clinical Impression: Hypomagnesemia Urinary tract infection Qualifiers: Urinary tract infection type: catheter-associated UTI Indwelling urinary catheter type: indwelling urethral catheter Encounter type: subsequent encounter Qualified Code(s): T83.511D - Infection and inflammatory reaction due to indwelling urethral catheter, subsequent encounter; N39.0 - Urinary tract infection, site not specified Hypothyroidism Qualifiers: Hypothyroidism type: unspecified Qualified Code(s): E03.9 - Hypothyroidism, unspecified Disposition: Discharge to Home or Self Care Condition: Fair Departure Forms: ED Discharge - Pt. Copy, Patient Portal Self Enrollment Instructions: DI for Urinary Tract Infection (UTI), DI for Hypothyroidism Diet: regular diet Activity: increase activity as tolerated Referrals: Shane Lopez MD [Primary Care Provider] - 1-2 Weeks Prescriptions: Ciprofloxacin [Cipro] 500 mg PO BID #20 tab Fluconazole 100 mg PO DAILY #3 tab Levothyroxine Sodium 200 mcg PO DAILY #30 tab Magnesium Oxide 400 mg PO BID #30 cap Home Medications: Ambulatory Orders Dexlansoprazole [Dexilant] 60 mg PO BEDTIME 05/02/16 Docusate Calcium 240 mg PO BEDTIME 05/02/16 Furosemide [Lasix] 40 mg PO BID 05/02/16 Gabapentin [Neurontin] 600 mg PO BID 05/02/16 Metformin HCl 500 mg PO BID 05/02/16 QUEtiapine FUMARATE [Seroquel] 100 mg PO BID 05/02/16 Risedronate Sodium [Atelvia] 35 mg PO WKLY 05/02/16 Simvastatin 40 mg PO BEDTIME 05/02/16 Venlafaxine HCl [Effexor Xr] 75 mg PO DAILY 05/02/16 Levothyroxine Sodium [Synthroid] 150 mcg PO 0700 01/01/17 Trazodone HCl 50 - 100 mg PO BEDTIME PRN 01/01/17 Baclofen [Lioresal] 10 mg PO Q12HR PRN 03/21/17 Chlorpheniramine Maleate 4 mg PO DAILY PRN 07/05/17 Potassium Chloride [Potassium Chloride ER] 10 meq PO BID 07/05/17 Venlafaxine HCl [Effexor Xr] 150 mg PO BEDTIME 07/05/17 Lidocaine 5% Patch [Lidoderm Patch] 1 ea TOP DAILY 07/07/17 Valacyclovir HCl 1,000 mg PO Q8HR #30 tab 07/08/17 Tobramycin (Ophth) [Tobrex] 0.3 % OP Q6HRS #3 oin 07/26/17 Tylenol W/ CODEINE #3 1 - 2 08/27/17 Doxycycline Hyclate [Vibramycin] 100 mg PO BID #20 cap 08/29/17 Ciprofloxacin [Cipro] 500 mg PO BID #20 tab 09/16/17 Fluconazole 100 mg PO DAILY #3 tab 09/16/17 Levothyroxine Sodium 200 mcg PO DAILY #30 tab 09/16/17 Magnesium Oxide 400 mg PO BID #30 cap 09/16/17 Additional Instructions: the patient is a 47-year-old female presenting to the emergency room secondary to recurrence of her neck pain and headache. Most likely source triggering this is a recurrence of her urinary tract infection. Based on previous culture the doxycycline is going to be discontinued and the patient is going to be switched over to ciprofloxacin which she states that she can take without any difficulty. Additionally there is a large amount of budding yeast in her urine so she is going to be placed on Diflucan for the next 3 days. The patient's magnesium is mildly low which may be contributing some muscle spasm. She is going to be placed on magnesium oxide 400 mg twice daily for the next 2 weeks. This level will need to be rechecked. Additionally she does have some significant hypothyroidism with a TSH of 22 today. We are going to increase her Synthroid to 200 g daily. This does need to be rechecked with an additional full thyroid panel in a couple of weeks to make sure it is improving. She does need to increase her fluid intake for the next couple of days and I would also recommend holding the Lasix for the next 2 days. ER warnings were given for any significant worsening. Continue localized wound care for the toes. hold the cholesterol medication while taking antibiotics.
[2017-09-16 11:15] VITALS: BP 96/57; TEMP 96.3; O2SAT 98
== END 2017-09-16 11:20 | disposition home or self-care (01) ==
LOC: ER 08:10
DX: T83.518A Infection and inflammatory reaction due to other urinary catheter, initial encounter (principal); N39.0 Urinary tract infection, site not specified; E03.9 Hypothyroidism, unspecified; E83.42 Hypomagnesemia; G82.50 Quadriplegia, unspecified; E11.9 Type 2 diabetes mellitus without complications; I10 Essential (primary) hypertension; Z86.73 Personal history of transient ischemic attack (TIA), and cerebral infarction without residual deficits; Z79.899 Other long term (current) drug therapy

== ENCOUNTER 2017-10-01 07:56 | Emergency (ER) | payer MEDICARE, MEDICAID ==
[2017-10-01 08:06] VITALS: TEMP 96.3
--- NOTE | 2017-10-01 08:07 | ED.PDOC ---
History of Present Illness - General Chief Complaint: Neck Injury/Pain Stated Complaint: Neck pain, headache Time Seen by Provider: 10/01/17 08:06 Source: patient, family, EMS - History of Present Illness Initial Comments: Radha Norton 47 y/o female quadriplegic with transverse myelitis brought by ems with constant dull neck pain which goes up the back of her head since Thursday no nausea/vomiting,no fever chill.Had been bedbound since start of her illness got progressively worse.Placed on chronic indwelling catheter and colostomy.Had multiple ER visit for his symptoms Timing/Duration: other - see hpi Severity: moderate Improving Factors: rest Worsening Factors: movement Associated Symptoms: headaches Allergies/Adverse Reactions: Allergies Aspirin Allergy (Verified 10/01/17 08:05) Azithromycin [From Zithromax] Allergy (Verified 10/01/17 08:05) Benzocaine Allergy (Verified 10/01/17 08:05) Diazepam [From Valium] Allergy (Verified 10/01/17 08:05) Levofloxacin [From Levaquin] Allergy (Verified 10/01/17 08:05) Meperidine [From Demerol HCl] Allergy (Verified 10/01/17 08:05) Nitrofurantoin [From Macrobid] Allergy (Verified 10/01/17 08:05) tape adhesive Allergy (Severe, Uncoded 07/02/17 17:56) Rash severe skin irritation Home Medications: Ambulatory Orders Dexlansoprazole [Dexilant] 60 mg PO BEDTIME 05/02/16 Docusate Calcium 240 mg PO BEDTIME 05/02/16 Furosemide [Lasix] 40 mg PO BID 05/02/16 Gabapentin [Neurontin] 600 mg PO BID 05/02/16 Metformin HCl 500 mg PO BID 05/02/16 QUEtiapine FUMARATE [Seroquel] 100 mg PO BID 05/02/16 Risedronate Sodium [Atelvia] 35 mg PO WKLY 05/02/16 Simvastatin 40 mg PO BEDTIME 05/02/16 Venlafaxine HCl [Effexor Xr] 75 mg PO DAILY 05/02/16 Levothyroxine Sodium [Synthroid] 150 mcg PO 0700 01/01/17 Trazodone HCl 50 - 100 mg PO BEDTIME PRN 01/01/17 Baclofen [Lioresal] 10 mg PO Q12HR PRN 03/21/17 Chlorpheniramine Maleate 4 mg PO DAILY PRN 07/05/17 Potassium Chloride [Potassium Chloride ER] 10 meq PO BID 07/05/17 Venlafaxine HCl [Effexor Xr] 150 mg PO BEDTIME 07/05/17 Lidocaine 5% Patch [Lidoderm Patch] 1 ea TOP DAILY 07/07/17 Valacyclovir HCl 1,000 mg PO Q8HR #30 tab 07/08/17 Tobramycin (Ophth) [Tobrex] 0.3 % OP Q6HRS #3 oin 07/26/17 Tylenol W/ CODEINE #3 1 - 2 08/27/17 Doxycycline Hyclate [Vibramycin] 100 mg PO BID #20 cap 08/29/17 Ciprofloxacin [Cipro] 500 mg PO BID #20 tab 09/16/17 Fluconazole 100 mg PO DAILY #3 tab 09/16/17 Levothyroxine Sodium 200 mcg PO DAILY #30 tab 09/16/17 Magnesium Oxide 400 mg PO BID #30 cap 09/16/17 Review of Systems - Review of Systems Constitutional: States: no symptoms reported EENTM: States: no symptoms reported Respiratory: States: no symptoms reported Cardiology: States: no symptoms reported Gastrointestinal/Abdominal: States: no symptoms reported Genitourinary: States: no symptoms reported Musculoskeletal: States: see HPI Skin: States: no symptoms reported Neurological: States: see HPI Past Medical History (General) - Patient Medical History Hx Seizures: Yes Hx Stroke: Yes Hx Asthma: No Hx of COPD: No Hx Cardiac Disorders: No Hx Congestive Heart Failure: No Hx Pacemaker: No Hx Hypertension: Yes Hx Diabetes: Yes Hx Renal Disease: - Chronic indwelling catheter Hx MRSA: No Hx Other PMH: Yes - transverse myelitis;Herpetic opthalmicus/keratitis Surgical History: appendectomy, other - hysterectomy,colostomy,left eye enucleation - Vaccination History Hx Tetanus, Diphtheria Vaccination: Yes Hx Influenza Vaccination: Yes Hx Pneumococcal Vaccination: Yes - Social History Hx Tobacco Use: No Hx Chewing Tobacco Use: No Hx Alcohol Use: No Hx Substance Use: No Hx Substance Use Treatment: No Hx Depression: No Hx Physical Abuse: No Hx Emotional Abuse: No - Activities of Daily Living Grooming Ability: Total Assistance Eating (Feeding) Ability: Total Assistance Toileting Ability: Total Assistance - Female History Patient : No Family Medical History - Family History Father Family History: No Known Living Status: Still Living Physical Exam - Physical Exam General Appearance: Alert, Comfortable, Other - speech fluent Eye Exam: right normal, left other - enucleation Ears, Nose, Throat: hearing grossly normal, normal ENT inspection Neck: non-tender, normal inspection, other - spastic muscle Respiratory: lungs clear, normal breath sounds Cardiovascular/Chest: normal peripheral pulses, regular rate, rhythm, no murmur Peripheral Pulses: radial,right: 2+, radial,left: 2+ Gastrointestinal/Abdominal: non tender, soft, other - patent colostomy Back Exam: normal inspection, no vertebral tenderness Extremity: other - contracture deformitie Neurologic: alert, oriented x 3, other - spatic muscle Skin Exam: normal color, warm/dry, other - no rashes noted Progress - Progress Progress: 10/01/17 08:26 Vital Signs - 8 hr 10/01/17 07:59 Temperature 96.3 F L Pulse Rate [ 61 Left Radial] Respiratory 18 Rate Blood Pressure 97/65 [Left Arm] O2 Sat by Pulse 100 Oximetry Departure - Departure Clinical Impression: Cervical neck pain with evidence of disc disease, History of myelitis, Quadriplegia, Anemia, chronic disease 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 Copy, Patient Portal Self Enrollment Instructions: DI for Neck Pain Referrals: Shane Lopez MD [Primary Care Provider] - 1-2 Weeks Home Medications: Ambulatory Orders Dexlansoprazole [Dexilant] 60 mg PO BEDTIME 05/02/16 Docusate Calcium 240 mg PO BEDTIME 05/02/16 Furosemide [Lasix] 40 mg PO BID 05/02/16 Gabapentin [Neurontin] 600 mg PO BID 05/02/16 Metformin HCl 500 mg PO BID 05/02/16 QUEtiapine FUMARATE [Seroquel] 100 mg PO BID 05/02/16 Risedronate Sodium [Atelvia] 35 mg PO WKLY 05/02/16 Simvastatin 40 mg PO BEDTIME 05/02/16 Venlafaxine HCl [Effexor Xr] 75 mg PO DAILY 05/02/16 Levothyroxine Sodium [Synthroid] 150 mcg PO 0700 01/01/17 Trazodone HCl 50 - 100 mg PO BEDTIME PRN 01/01/17 Baclofen [Lioresal] 10 mg PO Q12HR PRN 03/21/17 Chlorpheniramine Maleate 4 mg PO DAILY PRN 07/05/17 Potassium Chloride [Potassium Chloride ER] 10 meq PO BID 07/05/17 Venlafaxine HCl [Effexor Xr] 150 mg PO BEDTIME 07/05/17 Lidocaine 5% Patch [Lidoderm Patch] 1 ea TOP DAILY 07/07/17 Valacyclovir HCl 1,000 mg PO Q8HR #30 tab 07/08/17 Tobramycin (Ophth) [Tobrex] 0.3 % OP Q6HRS #3 oin 07/26/17 Tylenol W/ CODEINE #3 1 - 2 08/27/17 Doxycycline Hyclate [Vibramycin] 100 mg PO BID #20 cap 08/29/17 Ciprofloxacin [Cipro] 500 mg PO BID #20 tab 09/16/17 Fluconazole 100 mg PO DAILY #3 tab 09/16/17 Levothyroxine Sodium 200 mcg PO DAILY #30 tab 09/16/17 Magnesium Oxide 400 mg PO BID #30 cap 09/16/17 Additional Instructions: continue with all home medications;follow up with your neurologist
[2017-10-01] MEDS ORDERED: LACTATED RINGERS 1,000 ML IVS ONE (08:15)
[2017-10-01] MEDS ORDERED: MORPHINE SULFATE INJ 10 MG/ML VIAL IV ONE (08:15)
[2017-10-01] MEDS ORDERED: ORPHENADRINE CITRATE 30 MG/ML AMP IV ONE (08:15)
[2017-10-01] MEDS ORDERED: PROMETHAZINE HCL INJ 25 MG/ML VIAL IM ONE (08:29)
--- NOTE | 2017-10-01 09:05 | CT ---
EXAM DESCRIPTION: Cervical Spine CLINICAL HISTORY: pain/stiffness COMPARISON: None Available. TECHNIQUE: Cervical CT is performed with thin-section axial imaging. MPRs are created and reviewed as well. FINDINGS: Patient has had a previous right mastoidectomy. No fluid in the tympanic cavities or underdeveloped left mastoid air cells. There is cerumen accumulation in the left external auditory canal. Degenerative changes are prominent around the dens. Axial bone window images reveal intact ring of C1. No abnormal widening of the atlantodens interval. No fracture of the vertebral bodies or transverse processes or posterior elements. Lung apices appear clear. No cervical mass or adenopathy. Sagittal reformatted images show normal alignment of vertebral bodies and facets. No jumped facet or facet fracture. Normal craniocervical alignment. No prevertebral soft tissue swelling. No a avulsion of the spinous processes. Spondylosis: Prominent degenerative changes around the dens. C2-3: Chronic calcified left paracentral disc protrusion 2.3 mm is seen without significant spinal stenosis. C3-4: At this level abnormality is most consistent with a large chronic calcified osteophyte rather than acute fracture. Sagittal images appear chronic whereas the axial images are somewhat questionable. No history of trauma is given. This chronic calcified broad-based left posterolateral disc protrusion measures 1.5 x 0.5 cm narrowing the AP diameter of the spinal canal to approximately 7 mm in mid sagittal plane (axial image 39, series 2). There is moderately severe left neural foraminal narrowing especially involving the entry zone. C4-5: Moderate bilateral facet degenerative changes are seen. There is mild narrowing of the right neural foramen. No spinal stenosis. C5-6: Marked right-sided facet spurring is seen with mild right neural foraminal narrowing. There is mild right more than left uncovertebral joint spurring. C6-7: No significant degenerative changes. A catheter is present in the spinal canal with tip at the T7 level. Clinical correlation recommended. Coronal reformatted images show normal atlantooccipital and atlantoaxial alignment. The base of the dens is intact as is the body of C2. Intact lateral masses. IMPRESSION: Extensive degenerative changes around the dens Posterolateral left C3-4 chronic calcified disc herniation narrowing the entry zone to the left neural foramen and narrowing the AP diameter of the spinal canal to approximately 7 mm. Lesser degenerative changes at other levels. Catheter in the spinal canal with tip at C7 level. This exam was performed according to our departmental dose-optimization program, which includes automated exposure control, adjustment of the mA and/or kV according to patient size and/or use of iterative reconstruction technique. Total DLP equals 498.6 mGycm. Electronically signed by: Domingo Win MD 10/01/2017 9:03 AM CDT
[2017-10-01 10:16] VITALS: BP 97/70; O2SAT 96
== END 2017-10-01 10:15 | disposition home or self-care (01) ==
LOC: ER 07:56
DX: M54.2 Cervicalgia (principal); M62.461 Contracture of muscle, right lower leg; D64.9 Anemia, unspecified; G82.50 Quadriplegia, unspecified; G37.3 Acute transverse myelitis in demyelinating disease of central nervous system; M47.812 Spondylosis without myelopathy or radiculopathy, cervical region; R51 Headache; R56.9 Unspecified convulsions; I10 Essential (primary) hypertension; E11.9 Type 2 diabetes mellitus without complications; Z88.6 Allergy status to analgesic agent; Z79.899 Other long term (current) drug therapy; Z79.84 Long term (current) use of oral hypoglycemic drugs; Z86.73 Personal history of transient ischemic attack (TIA), and cerebral infarction without residual deficits; Z88.1 Allergy status to other antibiotic agents; Z88.8 Allergy status to other drugs, medicaments and biological substances
CPT/HCPCS: 36415; 72125; 80048; 80076; 82550; 82553; 83605; 84484; 85025; 85610; 85730; J2270; J2360; J2550; J7120